=== PATIENT | female | born 1965 | race Caucasian/White ===

== ENCOUNTER 2016-11-18 23:39 | Emergency (ER) | payer MEDICARE, MEDICAID ==
[2016-11-19 00:16] LABS: ABSOLUTE BASOPHILS # (AUTO) 0.1 10^3/uL (0.0-0.2); ABSOLUTE EOSINOPHILS # (AUTO) 0.1 10^3/uL (0.0-0.6); ABSOLUTE LYMPHOCYTES (AUTO) 3.9 10^3/uL (0.5-4.7); ABSOLUTE MONOCYTES (AUTO) 0.4 10^3/uL (0.1-1.4); ABSOLUTE NEUT (AUTO) 6.6 10^3/uL (1.7-8.2); BASOPHILS % (AUTO) 0.6 % (0-2); EOSINOPHILS % (AUTO) 0.6 % (0-6); HEMATOCRIT 33.2 % (36.0-47.0); HEMOGLOBIN 11.5 g/dL (12.0-15.5); HGB HCT DIFFERENCE 1.3; LYMPHOCYTES % (AUTO) 35.1 % (13-45); MEAN CORPUSCULAR HEMOGLOBIN 28.8 pg (27.0-33.4); MEAN CORPUSCULAR HGB CONC 34.7 g/dL (32.0-36.0); MEAN CORPUSCULAR VOLUME 83 fl (80-97); MONOCYTES % (AUTO) 3.6 % (3-13); RED BLOOD COUNT 3.99 10^6/uL (3.72-5.28); RED CELL DISTRIBUTION WIDTH 13.1 % (11.5-14.0); SEGMENTED NEUTROPHILS % (AUTO) 60.1 % (42-78); WHITE BLOOD COUNT 11.1 10^3/uL (4.0-10.5)
[2016-11-19 00:33] LABS: ANION GAP 10 (5-19); BLOOD UREA NITROGEN 7 mg/dL (7-20); CALCIUM 10.1 mg/dL (8.4-10.2); CARBON DIOXIDE 24 mmol/L (22-30); CHLORIDE 105 mmol/L (98-107); CREATINE KINASE 56 U/L (30-135); CREATININE RESULT 0.74 mg/dL (0.52-1.25); GLUCOSE 100 mg/dL (75-110); POTASSIUM 4.2 mmol/L (3.6-5.0); SODIUM 139.3 mmol/L (137-145)
[2016-11-19] MEDS ORDERED: ALPRAZOLAM 0.5 MG TABLET PO ONE (00:42)
[2016-11-19 00:46] LABS: TROPONIN I < 0.012 ng/mL
--- NOTE | 2016-11-19 00:46 | ER Document Report ---
ED General - General Stated Complaint: CHEST PAIN Time seen by provider: 00:42 Mode of Arrival: Ambulatory Information source: Patient Notes: This is a 51-year-old female brought into the emergency room because of chest pain. Patient states she's had nausea and vomiting all day. She states she does have a history of anxiety and states that she thinks she may have some withdrawal as she ran out of her Xanax. She also states that she's been under a lot of stress and has felt run down. She also complains of a rash around her nose and by her waist. TRAVEL OUTSIDE OF THE [place] IN LAST 30 DAYS: No - HPI Onset: Just prior to arrival Onset/Duration: Gradual Quality of pain: Dull Severity: Mild Pain Level: 1 Associated symptoms: Nausea, Vomiting. denies: Chest pain, Fever, Shortness of breath Exacerbated by: Denies Relieved by: Denies Similar symptoms previously: Yes Recently seen / treated by doctor: No - Related Data Allergies/Adverse Reactions: No Known Allergies Allergy (Verified 11/19/16 02:14) Past Medical History - General Information source: Patient - Social History Smoking Status: Current Every Day Smoker Cigarette use (# per day): Yes - half pack per day Chew tobacco use (# tins/day): No Smoking Education Provided: No Frequency of alcohol use: None Drug Abuse: None Lives with: Family Family History: Reviewed & Not Pertinent Patient has suicidal ideation: No Patient has homicidal ideation: No - Past Medical History Cardiac Medical History: Reports: Hx Hypertension EENT Medical History: Reports: None Neurological Medical History: Reports: None Endocrine Medical History: Reports: None Renal/ Medical History: Reports: None Malignancy Medical History: Reports: None GI Medical History: Reports: None Musculoskeltal Medical History: Reports Hx Arthritis - osteoarthritis Psychiatric Medical History: Reports: Hx Bipolar Disorder, Hx Depression Past Surgical History: Reports: Hx Hysterectomy, Hx Thyroid Surgery - Immunizations Hx Diphtheria, Pertussis, Tetanus Vaccination: No Review of Systems - Review of Systems Constitutional: denies: Chills, Fever EENT: See HPI Cardiovascular: See HPI Respiratory: No symptoms reported Gastrointestinal: No symptoms reported Genitourinary: No symptoms reported Female Genitourinary: No symptoms reported Musculoskeletal: See HPI Skin: See HPI Hematologic/Lymphatic: No symptoms reported Neurological/Psychological: See HPI Physical Exam - Vital signs Vitals: Resp Pulse Ox 16 98 11/18/16 23:43 11/18/16 23:43 Notes: Physical exam: GENERAL: 51-year-old female, alert and oriented 3, no acute distress HEAD: Atraumatic, normocephalic. EYES: Pupils equal round and reactive to light, extraocular movements intact, sclera anicteric, conjunctiva are normal. ENT: TMs normal, nares patent but patient does have what appears to be a cold sore around the right nostril, oropharynx clear without exudates. Moist mucous membranes. NECK: Normal range of motion, supple without lymphadenopathy or JVD. LUNGS: Breath sounds clear to auscultation bilaterally and equal. No wheezes rales or rhonchi. HEART: Regular rate and rhythm without murmurs, rubs or gallops. ABDOMEN: Soft, normoactive bowel sounds. No tenderness to palpation. No guarding, no rebound. No masses appreciated. EXTREMITIES: Normal range of motion, no pitting or edema. No clubbing or cyanosis. NEUROLOGICAL: Cranial nerves II through XII grossly intact. Normal speech, normal gait. PSYCH: Normal mood, normal affect. SKIN: Warm, Dry, normal turgor, patient does have a fungal type rash around the left waist just below some panus Course - Vital Signs Vital signs: Temp Pulse Resp BP Pulse Ox 98.7 F 77 16 108/59 L 100 11/19/16 00:01 11/19/16 00:01 11/19/16 03:01 11/19/16 03:01 11/19/16 03:01 - Laboratory Result Diagrams: 11/19/16 00:05 11/19/16 00:05 Laboratory results interpreted by me: 11/19/16 00:05 WBC 11.1 H Hgb 11.5 L Hct 33.2 L - Diagnostic Test Radiology reviewed: Image reviewed, Reports reviewed - Chest x-ray shows no infiltrates or effusions - EKG Interpretation by Az Rate: Normal Rhythm: NSR - EKG shows normal sinus rhythm with a ventricular rate of 90, left bundle branch block which is old Discharge - Discharge Clinical Impression: chest wall pain, benzodiazepine withdrawal, cold sore, candidal rash Condition: Stable Disposition: HOME, SELF-CARE Additional Instructions: Recommendations: Continue current medicines. Restart your Ativan tomorrow. Take the Abreva for the cold sore rash on the nose: Up to 5 times daily Use the ketoconazole cream for the fungal rash. Return to the emergency room for any worsening chest pain or shortness of breath. Prescriptions: Docosanol [Abreva] 1 applic TP ASDIR PRN #2 cream.gm. PRN Reason: Ketoconazole 30 gm TP BID #1 cream.gm.
[2016-11-19] MEDS ORDERED: DIPHENHYDRAMINE HCL 50 MG/ML VIAL IV ONE (00:47)
[2016-11-19] MEDS ORDERED: NORMAL SALINE 1000 ML 1,000 ML IV PRN (00:47)
[2016-11-19] MEDS ORDERED: METOCLOPRAMIDE HCL INJ/PF 10 MG/2 ML SDV IV ONE (00:47)
[2016-11-19 03:19] VITALS: BP 108/59
--- NOTE | 2016-11-19 11:12 | EKG REPORT ---
SEVERITY:- ABNORMAL ECG - SINUS RHYTHM IVCD, CONSIDER ATYPICAL LBBB : Confirmed by: Charles Stokes 19-Nov-2016 11:11:48
== END 2016-11-19 03:25 | disposition home or self-care (01) ==
LOC: ER 23:39
DX: R07.89 Other chest pain (principal); F13.239 Sedative, hypnotic or anxiolytic dependence with withdrawal, unspecified; B00.1 Herpesviral vesicular dermatitis; B37.2 Candidiasis of skin and nail; R11.2 Nausea with vomiting, unspecified; F17.210 Nicotine dependence, cigarettes, uncomplicated; I10 Essential (primary) hypertension; Z90.710 Acquired absence of both cervix and uterus
CPT/HCPCS: 93005; 99285; 96361; 96374; 96375; 36415; 82553; 82550; 85025; 80048; 84484; 83880; 71010; 93010; A9270; J1200; J2765; J7030

== ENCOUNTER 2016-12-22 17:36 | Emergency (ER) | payer MEDICARE, MEDICAID ==
[2016-12-22] MEDS ORDERED: DIPH/PERTUSS(ACELL)/TETANUS VAC/PF 0.5 ML SYR (>=10YO) IM ONE (18:50)
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
--- NOTE | 2016-12-22 19:48 | RADIOLOGY REPORT (SQ) ---
EXAM DESCRIPTION: HIP LEFT AP/LATERAL COMPLETED DATE/TIME: 12/22/2016 7:38 pm REASON FOR STUDY: fall pain COMPARISON: None. NUMBER OF VIEWS: Two views. TECHNIQUE: AP pelvis and additional frog-leg view of the left hip. LIMITATIONS: None. FINDINGS: MINERALIZATION: Normal. LEFT HIP: Patient is status post left total hip replacement. The prosthesis appears well seated in t he acetabulum and proximal femoral medullary canal in the projections obtained. RIGHT HIP: No fracture or dislocation. No worrisome bone lesions. PUBIS AND ISCHIUM: No fracture. PELVIS: No fracture. SACRUM: No fracture or dislocation. No worrisome bone lesions. LOWER LUMBAR SPINE: No fracture or dislocation. No worrisome bone lesions. No significant disc disea se. SOFT TISSUES: No findings. OTHER: No other significant finding. IMPRESSION: Status post left total hip replacement. NO RADIOGRAPHIC EVIDENCE OF ACUTE INJURY. TECHNICAL DOCUMENTATION: JOB ID: [id number] [employer]- All Rights Reserved
[2016-12-22 20:38] VITALS: BP 128/60
== END 2016-12-22 20:37 | disposition home or self-care (01) ==
LOC: ER 17:36
DX: M25.552 Pain in left hip (principal); Z96.642 Presence of left artificial hip joint; T24.011A Burn of unspecified degree of right thigh, initial encounter; X77.8XXA Intentional self-harm by other hot objects, initial encounter; I10 Essential (primary) hypertension; F17.210 Nicotine dependence, cigarettes, uncomplicated; Z71.6 Tobacco abuse counseling; Z85.820 Personal history of malignant melanoma of skin
CPT/HCPCS: 90471; 90715; 99283

== ENCOUNTER 2017-02-11 09:00 | Emergency (ER) | payer MEDICARE, MEDICAID ==
[2017-02-11 09:07] VITALS: BP 144/67
--- NOTE | 2017-02-11 09:44 | ER Document Report ---
ED General - General Chief Complaint: Other Stated Complaint: POSSIBLE WITHDRAWAL/RASH ON HANDS Time Seen by Provider: 02/11/17 09:38 Information source: Patient Notes: 51-year-old female with past medical history as recorded he states that she ran out of her Xanax around 4 days ago and has yet been able to get a refill. Patient also states 1 week ago she developed a rash to bilateral problems. She denies any nausea, vomiting, fevers, or other constitutional symptoms. She states she did see her primary care physician around 3 days ago and was prescribed an antibiotic and cream and antibiotic pills but is yet to fill the prescription. Patient states she is here today because she forgot to tell her primary care physician about the Xanax. She states she feels a little "shaky" as she has not taken her medications in the last 3 days. TRAVEL OUTSIDE OF THE [place] IN LAST 30 DAYS: No - HPI Onset: Other - See above Quality of pain: No pain Severity: Mild Pain Level: 1 Associated symptoms: Other - See above Exacerbated by: Denies Relieved by: Denies Similar symptoms previously: Yes Recently seen / treated by doctor: Yes - Related Data Allergies/Adverse Reactions: No Known Allergies Allergy (Verified 02/11/17 09:03) Past Medical History - Social History Smoking Status: Unknown if Ever Smoked Cigarette use (# per day): No Chew tobacco use (# tins/day): No Smoking Education Provided: No Frequency of alcohol use: None Family History: Arthritis, CAD, CVA, Hyperlipidemia, Hypertension, Malignancy Patient has suicidal ideation: No Patient has homicidal ideation: No - Past Medical History Cardiac Medical History: Reports: Hx Hypertension Endocrine Medical History: Reports: Hx Graves' Disease Renal/ Medical History: Denies: Hx Peritoneal Dialysis Malignancy Medical History: Reports: Hx Skin Cancer - melanoma Musculoskeltal Medical History: Reports Hx Arthritis - osteoarthritis, Reports Hx Musculoskeletal Deformity, Reports Hx Musculoskeletal Trauma Psychiatric Medical History: Reports: Hx Anxiety, Hx Bipolar Disorder, Hx Depression, Hx Post Traumatic Stress Disorder Traumatic Medical History: Reports: Hx Fractures Past Surgical History: Reports: Hx Section - x1, Hx Hysterectomy, Hx Orthopedic Surgery - L hip replacement, Hx Thyroid Surgery - Immunizations Immunizations up to date: Yes Hx Diphtheria, Pertussis, Tetanus Vaccination: Yes - 12/22/16 Physical Exam - Vital signs Vitals: Temp Pulse Resp BP Pulse Ox 98.0 F 107 H 20 144/67 H 99 02/11/17 09:04 02/11/17 09:04 02/11/17 09:04 02/11/17 09:04 02/11/17 09:04 Notes: Reviewed vital signs and nursing note as charted by RN. CONSTITUTIONAL: Alert and oriented and responds appropriately to questions. Well -appearing; well-nourished HEAD: Normocephalic; atraumatic EYES: PERRL; Conjunctivae clear, sclerae non-icteric ENT: Normal nose; no rhinorrhea; moist mucous membranes; pharynx and mucosa without lesions NECK: Supple without meningismus; non-tender CARD: Regular rate and rhythm; no murmurs RESP: Normal chest excursion without splinting or tachypnea; breath sounds clear and equal bilaterally; no wheezes, no rhonchi, no rales SKIN: Has a cracking, dry, erythematous rash to the palms of both hands. There are no finger lesions. There are no other body lesions or foot lesions present. NEURO: Moves all extremities equally; Motor and sensory function intact PSYCH: The patient's mood and manner are appropriate. Grooming and personal hygiene are appropriate. Course - Re-evaluation Re-evalutation: 02/11/17 09:42 Given the history and physical examination with bilateral lesion to the palms only with no constitutional symptoms, with no allergy contacts according to patient, no new medicines, no new perfumes, foods, or medications, I am uncertain to the etiology of the patient's hand lesions. Patient has no constitutional symptoms. She had an antibiotic hand cream and antibiotic tablets pending at the pharmacy. Given the above description I do not believe that the patient requires any blood work at this time. I have explained strict return precautions. Given the patient's anxiety I will provide a short course of Xanax tablets and to the patient is able to follow up again with the primary doctor - Vital Signs Vital signs: Temp Pulse Resp BP Pulse Ox 98.0 F 107 H 20 144/67 H 99 02/11/17 09:04 02/11/17 09:04 02/11/17 09:04 02/11/17 09:04 02/11/17 09:04 Discharge - Discharge Clinical Impression: Rash, Anxiety Condition: Good Disposition: HOME, SELF-CARE Additional Instructions: Come back immediately with any increased rash, rash to the locations, fevers or vomiting, or any other acute problems. Please make sure that she follow-up with your primary care physician for reassessment, refill of his Xanax prescription, and please start the antibiotics that were prescribed to you. Prescriptions: Alprazolam [Xanax] 1 mg PO TID #9 tablet
== END 2017-02-11 09:50 | disposition home or self-care (01) ==
LOC: ER 09:00
DX: R21 Rash and other nonspecific skin eruption (principal); T49.0X6A Underdosing of local antifungal, anti-infective and anti-inflammatory drugs, initial encounter; T36.96XA Underdosing of unspecified systemic antibiotic, initial encounter; F41.9 Anxiety disorder, unspecified; T42.4X6A Underdosing of benzodiazepines, initial encounter; Z91.128 Patient's intentional underdosing of medication regimen for other reason; Z91.14 Patient's other noncompliance with medication regimen; I10 Essential (primary) hypertension; Z85.820 Personal history of malignant melanoma of skin
CPT/HCPCS: 99282

== ENCOUNTER 2017-03-18 09:38 | Day surgery (SDC) | payer MEDICARE, MEDICAID ==
[2017-03-14 12:50] LABS: HEMATOCRIT 38.1 % (36.0-47.0); HEMOGLOBIN 12.6 g/dL (12.0-15.5); HGB HCT DIFFERENCE -0.3; MEAN CORPUSCULAR HEMOGLOBIN 27.9 pg (27.0-33.4); MEAN CORPUSCULAR HGB CONC 33.1 g/dL (32.0-36.0); MEAN CORPUSCULAR VOLUME 84 fl (80-97); RED BLOOD COUNT 4.52 10^6/uL (3.72-5.28); RED CELL DISTRIBUTION WIDTH 12.7 % (11.5-14.0); WHITE BLOOD COUNT 14.9 10^3/uL (4.0-10.5)
[2017-03-14 13:15] LABS: ANION GAP 13 (5-19); BLOOD UREA NITROGEN 27 mg/dL (7-20); CALCIUM 10.4 mg/dL (8.4-10.2); CARBON DIOXIDE 23 mmol/L (22-30); CHLORIDE 94 mmol/L (98-107); CREATININE RESULT 1.43 mg/dL (0.52-1.25); GLUCOSE 98 mg/dL (75-110); POTASSIUM 4.8 mmol/L (3.6-5.0); SODIUM 129.6 mmol/L (137-145)
--- NOTE | 2017-03-14 18:42 | EKG REPORT ---
SEVERITY:- ABNORMAL ECG - SINUS RHYTHM LEFT BUNDLE BRANCH BLOCK : Confirmed by: Dieter Muniz MD 14-Mar-2017 18:41:31
[~2017-03-18 09:38] MED LIST: LACTATED RINGERS 1000 ML IV PRN; LIDOCAINE 0.5% INJ-PF (5 MG/ML) 50 ML SDV SUBCUT PRN
[2017-03-18] MEDS ORDERED: DIAZEPAM 5 MG TABLET ONE (10:56)
[2017-03-18] MEDS ORDERED: LIDOCAINE 2%/EPINEPHRINE INJ 1.7 ML CARTRIDGE ONE (11:36)
[2017-03-18] MEDS ORDERED: BUPIVACAINE HCL 0.5%/EPI 1:200000 INJ 1.8 ML CARTRIDGE ONE (11:36)
[2017-03-18] MEDS ORDERED: FENTANYL CITRATE INJ/PF 100 MCG/2 ML AMPUL ONE (12:15)
[2017-03-18] MEDS ORDERED: PROPOFOL INJ 200 MG/20 ML VIAL IV ONE (12:15)
[2017-03-18] MEDS ORDERED: MIDAZOLAM 2 MG/2 ML INJ ONE (12:15)
[2017-03-18] MEDS ORDERED: OXYCODONE-ACETAMINOPHEN 5-325 MG TABLET PO PRN ×3 (13:18→13:31)
[2017-03-18] MEDS ORDERED: PROMETHAZINE HCL INJ 25 MG/1 ML VIAL IV PRN ×2 (13:18)
[2017-03-18] MEDS ORDERED: MEPERIDINE HCL/PF INJ 25 MG/1 ML DISP.SYRIN IV PRN (13:18)
[2017-03-18] MEDS ORDERED: MORPHINE SULFATE 10 MG/ML INJ IV PRN (13:18)
[2017-03-18] MEDS ORDERED: DIPHENHYDRAMINE HCL 50 MG/ML VIAL IV PRN (13:18)
[2017-03-18] MEDS ORDERED: FENTANYL CITRATE INJ/PF 100 MCG/2 ML AMPUL IV PRN ×3 (13:18)
[2017-03-18] MEDS: FENTANYL CITRATE INJ/PF 100 MCG/2 ML AMPUL ONE ×2 (13:41→13:50)
[2017-03-18] MEDS ORDERED: SUCCINYLCHOLINE CHLORIDE INJ 200 MG/10 ML VIAL ONE (14:31)
--- NOTE | 2017-03-18 14:55 | Operative Report ---
Operative Report DATE OF SURGERY: 03/18/17 PREOPERATIVE DIAGNOSIS: Dental Caries POSTOPERATIVE DIAGNOSIS: Same OPERATION: Surgical removal of teeth #'s 3,5-14 and alveoloplasty UR and UL quadrants SURGEON: JANINE SOW ANESTHESIA: GA TISSUE REMOVED OR ALTERED: teeth which were discarded COMPLICATIONS: none ESTIMATED BLOOD LOSS: 25cc INTRAOPERATIVE FINDINGS: Nonrestorable teeth PROCEDURE: The patient was brought into operating room #3 and placed on the operating room table in supine position. General anesthesia was induced via a peripheral IV and continued utilizing nasoendotracheal intubation through the left nares. The patient was prepped and draped in the usual fashion for an intraoral procedure. A total of four carpules of 2% Lidocaine with 1:100k epi and two carpules of 0.5 % Marcaine with 1:200k epi were delivered to the planned surgical sites via infiltration and nerve block. The oral cavity and oropharynx were suctioned and a moistened oropharyngeal throat pack was placed. Full thickness mucoperiosteal flaps were developed via envelope incisions. Ostecotomy was completed as needed. Teeth #'s 3 and 14 were sectioned. Teeth were delivered using elevators and forceps. Alveloplasties were completed using ronguers and bone files. The sockets were curretted free of debris and irrigated with NS. There was no sinus communiction noted, the nerves were not seen and the mandible was intact postoperatively. A bite block was used throughout the procedure. The flaps were reapproximated and sutured with 4/0 chromic gut suture. The oral cavity was irrigated and suctioned, the throat pack removed and the oropharynx suctioned. Gauze packs were placed bilaterally to aid in continued hemastasis. The patient was awakened from general anesthesia, extubated in the operating room and taken to recovery room in spontaneous breathing fashion.
[2017-03-18 16:11] VITALS: BP 99/70
== END 2017-03-18 15:25 | disposition home or self-care (01) ==
LOC: OROUT 09:38
PROVIDERS: ATTEND Dentist Oral and Maxillofacial Surgery
PROC: 0NQSXZZ (ICD-10-PCS; 2017-03-18)
PROC: 0NQRXZZ Repair Maxilla, External Approach (ICD-10-PCS; 2017-03-18)
PROC: 0CDWXZ1 Extraction of Upper Tooth, Multiple, External Approach (ICD-10-PCS; principal; 2017-03-18 12:00)
DX: K02.9 Dental caries, unspecified (principal); F17.210 Nicotine dependence, cigarettes, uncomplicated; I10 Essential (primary) hypertension; M19.90 Unspecified osteoarthritis, unspecified site; E07.9 Disorder of thyroid, unspecified; Z96.642 Presence of left artificial hip joint; Z79.899 Other long term (current) drug therapy; Z85.828 Personal history of other malignant neoplasm of skin
CPT/HCPCS: 41899; 41874 ×2; 93005; 36415 ×2; 84132; 85027; 80048; 93010; J2250; J3490; A9270 ×2; J3010; J0330; J2704; 170

== ENCOUNTER 2017-06-14 15:17 | Emergency (ER) | payer MEDICARE, MEDICAID ==
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
[2017-06-14] MEDS ORDERED: KETOROLAC TROMETHAMINE 60 MG/2 ML SDV IM ONE (18:28)
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
[2017-06-14 19:57] VITALS: BP 119/72
[2017-06-14] MEDS ORDERED: HYDROCODONE/ACETAMINOPHEN 5-325 MG 6 TAB/DSPK PO PRN (20:03)
== END 2017-06-14 20:25 | disposition home or self-care (01) ==
LOC: ER 15:17
DX: R07.81 Pleurodynia (principal); R51 Headache; V87.7XXD Person injured in collision between other specified motor vehicles (traffic), subsequent encounter; F17.200 Nicotine dependence, unspecified, uncomplicated; I10 Essential (primary) hypertension; Z90.710 Acquired absence of both cervix and uterus; Z96.642 Presence of left artificial hip joint
CPT/HCPCS: 99284; 96372; 71111; 70450; J1885; A9270

== ENCOUNTER 2017-06-20 17:44 | Emergency (ER) | payer MEDICARE, MEDICAID ==
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
[2017-06-20 20:28] LABS: ABSOLUTE BASOPHILS # (AUTO) 0.1 10^3/uL (0.0-0.2); ABSOLUTE LYMPHOCYTES (AUTO) 2.8 10^3/uL (0.5-4.7); ABSOLUTE MONOCYTES (AUTO) 0.3 10^3/uL (0.1-1.4); ABSOLUTE NEUT (AUTO) 7.2 10^3/uL (1.7-8.2); BASOPHILS % (AUTO) 1.1 % (0-2); EOSINOPHILS % (AUTO) 0.2 % (0-6); HEMATOCRIT 31.8 % (36.0-47.0); HEMOGLOBIN 10.9 g/dL (12.0-15.5); HGB HCT DIFFERENCE 0.9; LYMPHOCYTES % (AUTO) 27.2 % (13-45); MEAN CORPUSCULAR HGB CONC 34.3 g/dL (32.0-36.0); MEAN CORPUSCULAR VOLUME 85 fl (80-97); MONOCYTES % (AUTO) 2.9 % (3-13); RED BLOOD COUNT 3.76 10^6/uL (3.72-5.28); RED CELL DISTRIBUTION WIDTH 14.2 % (11.5-14.0); SEGMENTED NEUTROPHILS % (AUTO) 68.6 % (42-78); WHITE BLOOD COUNT 10.4 10^3/uL (4.0-10.5)
[2017-06-20 20:47] LABS: ALANINE AMINOTRANSFERASE 32 U/L (9-52); ALBUMIN 3.9 g/dL (3.5-5.0); ALKALINE PHOSPHATASE 97 U/L (38-126); ANION GAP 9 (5-19); ASPARTATE AMINO TRANSFERASE 20 U/L (14-36); BILIRUBIN,DIRECT 0.4 mg/dL (0.0-0.4); BILIRUBIN,TOTAL 0.5 mg/dL (0.2-1.3); BLOOD UREA NITROGEN 13 mg/dL (7-20); CALCIUM 9.5 mg/dL (8.4-10.2); CARBON DIOXIDE 31 mmol/L (22-30); CHLORIDE 97 mmol/L (98-107); CREATININE RESULT 0.96 mg/dL (0.52-1.25); GLUCOSE 95 mg/dL (75-110); SODIUM 137.2 mmol/L (137-145); TOTAL PROTEIN 6.1 g/dL (6.3-8.2)
[2017-06-20 20:48] LABS: ALCOHOL < 10 mg/dL (NONE DETECTED)
[2017-06-20] MEDS ORDERED: POTASSIUM CHLORIDE 20 MEQ/15 ML UDCUP PO ONE (20:52)
[2017-06-20 20:54] LABS: APPEARANCE,URINE CLEAR; BILIRUBIN,URINE NEGATIVE (NEGATIVE); GLUCOSE, URINE NEGATIVE (NEGATIVE); KETONES,URINE NEGATIVE (NEGATIVE); LEUKOCYTE ESTERASE,URINE NEGATIVE (NEGATIVE); NITRITE,URINE NEGATIVE (NEGATIVE); PROTEIN,URINE NEGATIVE (NEGATIVE); URINE SPECIFIC GRAVITY 1.005; UROBILINOGEN,URINE NEGATIVE mg/dL (<2.0)
[2017-06-20 21:08] LABS: URINE BARBITURATES SCREEN NEGATIVE; URINE METHADONE SCREEN NEGATIVE; URINE OPIATES LOW NEGATIVE; URINE PHENCYCLIDINE SCREEN NEGATIVE
[2017-06-20 22:22] VITALS: BP 122/69
--- NOTE | 2017-06-21 14:04 | EKG REPORT ---
SEVERITY:- ABNORMAL ECG - SINUSL RHYTHM LEFT BUNDLE BRANCH BLOCK : Confirmed by: Jen Marrero MD 21-Jun-2017 14:03:02
== END 2017-06-20 22:22 | disposition home or self-care (01) ==
LOC: ER 17:44
DX: R56.9 Unspecified convulsions (principal); R41.82 Altered mental status, unspecified; G47.00 Insomnia, unspecified; F17.200 Nicotine dependence, unspecified, uncomplicated; I10 Essential (primary) hypertension; Z90.710 Acquired absence of both cervix and uterus; Z96.642 Presence of left artificial hip joint
CPT/HCPCS: 93005; 99285; 36415; 80307 ×2; 85025; 80053; 81001; 93010; A9270

== ENCOUNTER 2017-06-24 18:44 | Emergency (ER) | payer MEDICARE, MEDICAID ==
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
[2017-06-24 19:38] LABS: ABSOLUTE BASOPHILS # (AUTO) 0.2 10^3/uL (0.0-0.2); ABSOLUTE EOSINOPHILS # (AUTO) 0.1 10^3/uL (0.0-0.6); ABSOLUTE LYMPHOCYTES (AUTO) 4.7 10^3/uL (0.5-4.7); ABSOLUTE MONOCYTES (AUTO) 0.6 10^3/uL (0.1-1.4); ABSOLUTE NEUT (AUTO) 13.8 10^3/uL (1.7-8.2); BASOPHILS % (AUTO) 1.2 % (0-2); EOSINOPHILS % (AUTO) 0.6 % (0-6); HEMATOCRIT 35.3 % (36.0-47.0); HEMOGLOBIN 12.2 g/dL (12.0-15.5); HGB HCT DIFFERENCE 1.3; LYMPHOCYTES % (AUTO) 24.4 % (13-45); MEAN CORPUSCULAR HGB CONC 34.5 g/dL (32.0-36.0); MEAN CORPUSCULAR VOLUME 84 fl (80-97); MONOCYTES % (AUTO) 3.1 % (3-13); RED CELL DISTRIBUTION WIDTH 14.1 % (11.5-14.0); SEGMENTED NEUTROPHILS % (AUTO) 70.7 % (42-78); WHITE BLOOD COUNT 19.5 10^3/uL (4.0-10.5)
[2017-06-24 19:44] LABS: ALANINE AMINOTRANSFERASE 28 U/L (9-52); ALBUMIN 4.5 g/dL (3.5-5.0); ALKALINE PHOSPHATASE 131 U/L (38-126); ANION GAP 15 (5-19); ASPARTATE AMINO TRANSFERASE 17 U/L (14-36); BILIRUBIN,DIRECT 0.5 mg/dL (0.0-0.4); BILIRUBIN,TOTAL 0.6 mg/dL (0.2-1.3); BLOOD UREA NITROGEN 12 mg/dL (7-20); CALCIUM 9.9 mg/dL (8.4-10.2); CARBON DIOXIDE 28 mmol/L (22-30); CHLORIDE 90 mmol/L (98-107); CREATININE RESULT 1.01 mg/dL (0.52-1.25); GLUCOSE 102 mg/dL (75-110); SODIUM 132.6 mmol/L (137-145); TOTAL PROTEIN 7.2 g/dL (6.3-8.2)
[2017-06-24 19:56] LABS: ALCOHOL < 10 mg/dL (NONE DETECTED)
[2017-06-24 19:58] LABS: POTASSIUM 3.1 mmol/L (3.6-5.0)
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
[2017-06-24] MEDS ORDERED: LEVETIRACETAM 500 MG TABLET PO ONE (20:20)
[2017-06-24 20:22] LABS: APPEARANCE,URINE CLEAR; BILIRUBIN,URINE NEGATIVE (NEGATIVE); GLUCOSE, URINE NEGATIVE (NEGATIVE); KETONES,URINE NEGATIVE (NEGATIVE); LEUKOCYTE ESTERASE,URINE NEGATIVE (NEGATIVE); NITRITE,URINE NEGATIVE (NEGATIVE); PROTEIN,URINE NEGATIVE (NEGATIVE); URINE SPECIFIC GRAVITY 1.005; UROBILINOGEN,URINE NEGATIVE mg/dL (<2.0)
[2017-06-24] MEDS ORDERED: POTASSIUM CHLORIDE 10 MEQ TABLET.SA PO ONE (20:23)
[2017-06-24] MEDS ORDERED: MAGNESIUM OXIDE 400 MG TABLET PO ONE (20:24)
[2017-06-24] MEDS ORDERED: NORMAL SALINE 1000 ML 1,000 ML IV ONE (20:26)
[2017-06-24 20:36] LABS: URINE BARBITURATES SCREEN NEGATIVE; URINE METHADONE SCREEN NEGATIVE; URINE OPIATES LOW NEGATIVE; URINE PHENCYCLIDINE SCREEN NEGATIVE
[2017-06-25 00:04] VITALS: BP 141/82
== END 2017-06-24 20:46 | disposition home or self-care (01) ==
LOC: ER 18:44
DX: R56.9 Unspecified convulsions (principal); E86.0 Dehydration; F17.200 Nicotine dependence, unspecified, uncomplicated; Z90.710 Acquired absence of both cervix and uterus
CPT/HCPCS: 99284; 36415; 80307 ×2; 85025; 80053; 81001; A9270 ×3

== ENCOUNTER 2017-06-26 08:37 | Emergency (ER) | payer MEDICARE, MEDICAID ==
[2017-06-26 09:06] LABS: ABSOLUTE BASOPHILS # (AUTO) 0.1 10^3/uL (0.0-0.2); ABSOLUTE EOSINOPHILS # (AUTO) 0.2 10^3/uL (0.0-0.6); ABSOLUTE LYMPHOCYTES (AUTO) 3.8 10^3/uL (0.5-4.7); ABSOLUTE MONOCYTES (AUTO) 0.8 10^3/uL (0.1-1.4); ABSOLUTE NEUT (AUTO) 11.4 10^3/uL (1.7-8.2); BASOPHILS % (AUTO) 0.4 % (0-2); EOSINOPHILS % (AUTO) 1.1 % (0-6); HEMATOCRIT 36.5 % (36.0-47.0); HEMOGLOBIN 12.9 g/dL (12.0-15.5); HGB HCT DIFFERENCE 2.2; LYMPHOCYTES % (AUTO) 23.3 % (13-45); MEAN CORPUSCULAR HEMOGLOBIN 29.3 pg (27.0-33.4); MEAN CORPUSCULAR HGB CONC 35.4 g/dL (32.0-36.0); MEAN CORPUSCULAR VOLUME 83 fl (80-97); MONOCYTES % (AUTO) 4.7 % (3-13); RED BLOOD COUNT 4.41 10^6/uL (3.72-5.28); RED CELL DISTRIBUTION WIDTH 13.9 % (11.5-14.0); SEGMENTED NEUTROPHILS % (AUTO) 70.5 % (42-78); WHITE BLOOD COUNT 16.2 10^3/uL (4.0-10.5)
[2017-06-26 09:30] LABS: ALBUMIN 4.8 g/dL (3.5-5.0); ANION GAP 15 (5-19); BILIRUBIN,DIRECT 0.5 mg/dL (0.0-0.4); BILIRUBIN,TOTAL 0.6 mg/dL (0.2-1.3); BLOOD UREA NITROGEN 10 mg/dL (7-20); CARBON DIOXIDE 31 mmol/L (22-30); CHLORIDE 88 mmol/L (98-107); GLUCOSE 111 mg/dL (75-110); NEONATAL BILIRUBIN RESULT 0.1 mg/dL (0.1-1.1); SODIUM 133.8 mmol/L (137-145); TOTAL PROTEIN 7.9 g/dL (6.3-8.2)
[2017-06-26 09:36] LABS: APPEARANCE,URINE CLEAR; BILIRUBIN,URINE NEGATIVE (NEGATIVE); GLUCOSE, URINE NEGATIVE (NEGATIVE); KETONES,URINE NEGATIVE (NEGATIVE); LEUKOCYTE ESTERASE,URINE NEGATIVE (NEGATIVE); NITRITE,URINE NEGATIVE (NEGATIVE); PROTEIN,URINE NEGATIVE (NEGATIVE); URINE SPECIFIC GRAVITY 1.002; UROBILINOGEN,URINE NEGATIVE mg/dL (<2.0)
[2017-06-26 09:41] LABS: ALANINE AMINOTRANSFERASE 33 U/L (9-52); ALKALINE PHOSPHATASE 156 U/L (38-126); ASPARTATE AMINO TRANSFERASE 14 U/L (14-36); CALCIUM 10.3 mg/dL (8.4-10.2)
[2017-06-26 09:44] LABS: ALCOHOL < 10 mg/dL (NONE DETECTED)
[2017-06-26 09:46] LABS: POTASSIUM 2.9 mmol/L (3.6-5.0)
[2017-06-26] MEDS ORDERED: POTASSIUM CHLORIDE 10 MEQ TABLET.SA PO ONE (09:52)
[2017-06-26 09:57] LABS: URINE BARBITURATES SCREEN NEGATIVE; URINE METHADONE SCREEN NEGATIVE; URINE OPIATES LOW NEGATIVE; URINE PHENCYCLIDINE SCREEN NEGATIVE
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
[2017-06-26 11:06] VITALS: BP 120/76
--- NOTE | 2017-06-26 13:33 | EKG REPORT ---
SEVERITY:- ABNORMAL ECG - SINUS RHYTHM PROBABLE LEFT ATRIAL ABNORMALITY LEFT BUNDLE BRANCH BLOCK : Confirmed by: Dieter Muniz MD 26-Jun-2017 13:32:05
== END 2017-06-26 10:45 | disposition home or self-care (01) ==
LOC: ER 08:37
DX: Z76.0 Encounter for issue of repeat prescription (principal); M54.2 Cervicalgia; M54.9 Dorsalgia, unspecified; G89.29 Other chronic pain; Z79.899 Other long term (current) drug therapy; F17.200 Nicotine dependence, unspecified, uncomplicated
CPT/HCPCS: 93005; 99284; 36415; 80307 ×4; 85025; 80053; 81001; 93010; A9270

== ENCOUNTER 2017-06-27 01:21 | Emergency (ER) | payer MEDICARE, MEDICAID ==
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
[2017-06-27 02:24] LABS: ABSOLUTE EOSINOPHILS # (AUTO) 0.2 10^3/uL (0.0-0.6); ABSOLUTE LYMPHOCYTES (AUTO) 4.5 10^3/uL (0.5-4.7); ABSOLUTE MONOCYTES (AUTO) 0.7 10^3/uL (0.1-1.4); ABSOLUTE NEUT (AUTO) 11.4 10^3/uL (1.7-8.2); BASOPHILS % (AUTO) 0.3 % (0-2); HEMATOCRIT 31.9 % (36.0-47.0); HEMOGLOBIN 11.5 g/dL (12.0-15.5); HGB HCT DIFFERENCE 2.6; LYMPHOCYTES % (AUTO) 26.6 % (13-45); MEAN CORPUSCULAR HEMOGLOBIN 29.3 pg (27.0-33.4); MEAN CORPUSCULAR VOLUME 82 fl (80-97); MONOCYTES % (AUTO) 4.2 % (3-13); RED BLOOD COUNT 3.91 10^6/uL (3.72-5.28); RED CELL DISTRIBUTION WIDTH 13.8 % (11.5-14.0); SEGMENTED NEUTROPHILS % (AUTO) 67.9 % (42-78); WHITE BLOOD COUNT 16.8 10^3/uL (4.0-10.5)
[2017-06-27 02:43] LABS: ALANINE AMINOTRANSFERASE 27 U/L (9-52); ALKALINE PHOSPHATASE 149 U/L (38-126); ANION GAP 14 (5-19); ASPARTATE AMINO TRANSFERASE 14 U/L (14-36); BILIRUBIN,DIRECT 0.3 mg/dL (0.0-0.4); BILIRUBIN,TOTAL 0.7 mg/dL (0.2-1.3); BLOOD UREA NITROGEN 10 mg/dL (7-20); CALCIUM 9.4 mg/dL (8.4-10.2); CARBON DIOXIDE 24 mmol/L (22-30); CHLORIDE 85 mmol/L (98-107); CREATININE RESULT 0.87 mg/dL (0.52-1.25); GLUCOSE 94 mg/dL (75-110); SODIUM 123.1 mmol/L (137-145); TOTAL PROTEIN 6.3 g/dL (6.3-8.2)
[2017-06-27 02:47] LABS: ALCOHOL < 10 mg/dL (NONE DETECTED)
[2017-06-27 02:48] LABS: POTASSIUM 2.7 mmol/L (3.6-5.0)
[2017-06-27] MEDS ORDERED: POTASSI CL 20 MEQ/50 ML RIDER 20 MEQ/50 ML RTUPB IV ONE ×2 (02:48→06:43)
[2017-06-27] MEDS ORDERED: POTASSIUM CHLORIDE 10 MEQ TABLET.SA PO ONE (02:48)
[2017-06-27] MEDS ORDERED: FENTANYL CITRATE INJ/PF 100 MCG/2 ML AMPUL IV ONE (02:50)
[2017-06-27] MEDS ORDERED: NORMAL SALINE 500 ML IV ONE ×2 (05:19→10:08)
[2017-06-27] MEDS: MAGNESIUM SULFATE/D5W 1 GM/100 ML RTUPB IV SCH ×2 (05:47→07:15)
[2017-06-27 06:00] LABS: APPEARANCE,URINE CLEAR; BILIRUBIN,URINE NEGATIVE (NEGATIVE); GLUCOSE, URINE NEGATIVE (NEGATIVE); KETONES,URINE NEGATIVE (NEGATIVE); LEUKOCYTE ESTERASE,URINE NEGATIVE (NEGATIVE); NITRITE,URINE NEGATIVE (NEGATIVE); PROTEIN,URINE NEGATIVE (NEGATIVE); URINE SPECIFIC GRAVITY 1.003; UROBILINOGEN,URINE NEGATIVE mg/dL (<2.0)
[2017-06-27 06:07] LABS: URINE BARBITURATES SCREEN NEGATIVE; URINE METHADONE SCREEN NEGATIVE; URINE OPIATES LOW NEGATIVE; URINE PHENCYCLIDINE SCREEN NEGATIVE
[2017-06-27] MEDS ORDERED: TIZANIDINE HCL 4 MG TABLET PO PRN (06:07)
--- NOTE | 2017-06-27 06:37 | EKG REPORT ---
SEVERITY:- ABNORMAL ECG - SINUS RHYTHM IVCD, CONSIDER ATYPICAL LBBB : Confirmed by: Dieter Muniz MD 27-Jun-2017 06:36:51
[2017-06-27 07:29] LABS: ANION GAP 10 (5-19); BLOOD UREA NITROGEN 9 mg/dL (7-20); CARBON DIOXIDE 28 mmol/L (22-30); CHLORIDE 88 mmol/L (98-107); CREATININE RESULT 0.83 mg/dL (0.52-1.25); GLUCOSE 108 mg/dL (75-110); POTASSIUM 3.1 mmol/L (3.6-5.0); SODIUM 125.9 mmol/L (137-145)
[2017-06-27] MEDS: OXYCODONE-ACETAMINOPHEN 5-325 MG TABLET PO PRN ×3 (08:18→18:02)
[2017-06-27] MEDS: PROMETHAZINE HCL 25 MG TABLET PO PRN ×2 (08:18→18:03)
[2017-06-27] MEDS ORDERED: POTASSIUM CHLORIDE 20 MEQ/50 ML RTU IV ONE (09:00)
[2017-06-27] MEDS: LEVETIRACETAM 500 MG TABLET PO SCH ×2 (09:04→18:02)
[2017-06-27] MEDS: ALPRAZOLAM 0.5 MG TABLET PO PRN ×3 (09:05→18:02)
[2017-06-27] MEDS ORDERED: FAMOTIDINE 20 MG TABLET PO SCH (10:00)
[2017-06-27] MEDS ORDERED: FUROSEMIDE 40 MG TABLET PO SCH (10:00)
[2017-06-27] MEDS ORDERED: LEVOTHYROXINE SODIUM 0.075 MG TABLET PO SCH (10:00)
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
[2017-06-27 17:11] LABS: ANION GAP 11 (5-19); BLOOD UREA NITROGEN 8 mg/dL (7-20); CALCIUM 8.8 mg/dL (8.4-10.2); CARBON DIOXIDE 27 mmol/L (22-30); CHLORIDE 94 mmol/L (98-107); CREATININE RESULT 0.91 mg/dL (0.52-1.25); GLUCOSE 112 mg/dL (75-110); POTASSIUM 3.5 mmol/L (3.6-5.0); SODIUM 131.6 mmol/L (137-145)
[2017-06-27] MEDS ORDERED: AMITRIPTYLINE HCL 50 MG TABLET PO SCH (18:00)
[2017-06-27] MEDS ORDERED: BUSPIRONE HCL 10 MG TABLET PO SCH (18:00)
--- NOTE | 2017-06-27 18:04 | ER Document Report ---
Doctor's Note Notes: 06/27/17 18:01 Patient is stable. Magnesium, potassium and sodium have been repleted. Mark has been seen and cleared by psych. She will be discharged home with a RX for potassium and instructed to follow up with clinic as indicated in her discharge paperwork.
[2017-06-27 19:05] VITALS: BP 115/78
== END 2017-06-27 19:06 | disposition home or self-care (01) ==
LOC: ER 01:21
DX: E87.6 Hypokalemia (principal); E83.42 Hypomagnesemia; F19.10 Other psychoactive substance abuse, uncomplicated; R10.84 Generalized abdominal pain; R11.0 Nausea; G89.29 Other chronic pain; I10 Essential (primary) hypertension; I44.7 Left bundle-branch block, unspecified; F41.9 Anxiety disorder, unspecified; Z85.820 Personal history of malignant melanoma of skin; Z79.899 Other long term (current) drug therapy
CPT/HCPCS: 93005; 99285; 96361; 51701; 96375; 96365; 96366; 96367; 36415; 84439; 80307 ×4; 83735; 84443; 85025; 80048; 80053; 81001; 93010; A9270 ×10; J3010; J3475; J3480; J7040; J3490

== ENCOUNTER 2017-06-29 10:34 | Emergency (ER) | payer MEDICARE, MEDICAID ==
--- NOTE | 2017-06-29 11:01 | ER Document Report ---
ED General - General Stated Complaint: ANXIETY Time Seen by Provider: 06/29/17 10:42 Notes: Patient is here because she experienced a couple of hours of chest pains this morning. She feels it is because she is going through withdrawal from Xanax and Percocets which she has been out of for about 2 weeks. She says the chest hurt in the front of her chest and her left arm went numb. It lasted about 2 hours, but is now back to normal. Patient says that she has not had a good sleep for 2 weeks. Think she is having a heart attack, but may be panic attack. She has been seen here previously for mental health evaluations as well as other evaluations. She reportedly left last week from the emergency department AGAINST MEDICAL ADVICE. Patient says she has a cough is producing green sputum. Denies any actual shortness of breath at this time. Has COPD and continues to smoke a pack of cigarettes daily. Denies any fevers. PMH: Hip replacement, hypertension, GERD, hypothyroid, fibromyalgia, anxiety, depression, and seizures. This is this patient's ninth visit to this emergency department in this calendar year of 2017. She was just here 3 days ago for a psychiatric evaluation. TRAVEL OUTSIDE OF THE [place] IN LAST 30 DAYS: No - Related Data Allergies/Adverse Reactions: No Known Allergies Allergy (Verified 06/27/17 01:29) Home Medications: Current Home Medications Duloxetine HCl 60 mg PO BID 06/29/17 [History] Ibuprofen 800 mg PO Q6HP PRN 06/29/17 [History] Potassium Chloride 8 meq PO BID 06/29/17 [History] Past Medical History - Social History Smoking Status: Current Every Day Smoker Cigarette use (# per day): Yes Family History: Arthritis, CAD, CVA, Hyperlipidemia, Hypertension, Malignancy - Past Medical History Cardiac Medical History: Reports: Hx Hypertension Denies: Hx Coronary Artery Disease, Hx Heart Attack Pulmonary Medical History: Reports: Hx COPD Neurological Medical History: Reports: Hx Seizures Endocrine Medical History: Reports: Hx Graves' Disease, Hx Hypothyroidism Malignancy Medical History: Reports: Hx Skin Cancer - melanoma a couple of years ago GI Medical History: Reports: Hx Gastroesophageal Reflux Disease Musculoskeltal Medical History: Denies Hx Arthritis - RHEUMATOID, Reports Hx Fibromyalgia, Reports Hx Musculoskeletal Deformity, Reports Hx Musculoskeletal Trauma Psychiatric Medical History: Reports: Hx Anxiety, Hx Bipolar Disorder, Hx Depression, Hx Post Traumatic Stress Disorder Traumatic Medical History: Reports: Hx Fractures Past Surgical History: Reports: Hx Section - x1, Hx Hysterectomy, Hx Orthopedic Surgery - L hip replacement, Hx Thyroid Surgery - Immunizations Immunizations up to date: Yes Hx Diphtheria, Pertussis, Tetanus Vaccination: Yes Review of Systems - Review of Systems Notes: REVIEW OF SYSTEMS: CONSTITUTIONAL : Denies fever. EENT: Denies eye, ear, nose or mouth or throat pain or other symptoms. CARDIOVASCULAR: See HPI. RESPIRATORY: Has a cough producing green phlegm. Does not feel short of breath , however. GASTROINTESTINAL: Denies abdominal pain or nausea, vomiting, or diarrhea. GENITOURINARY: Denies difficulty or painful urinating, urinary frequency, blood in urine. MUSCULOSKELETAL: Denies back or neck pain. Denies joint pain or swelling. No leg pain or swelling such as with blood clots. SKIN: Denies rash or skin lesions. NEUROLOGICAL: Denies LOC or altered mental status. Denies headache. Denies sensory loss or motor deficits. ALL OTHER SYSTEMS REVIEWED AND NEGATIVE. Physical Exam - Vital signs Vitals: Temp Pulse Resp BP Pulse Ox 97.9 F 97 16 143/61 H 100 06/29/17 11:04 06/29/17 11:04 06/29/17 11:04 06/29/17 11:04 06/29/17 11:04 Interpretation: Normal - Notes Notes: PHYSICAL EXAMINATION: GENERAL: Well-appearing, in no acute distress. Vital signs all essentially normal. HEAD: Atraumatic, normocephalic. EYES: Pupils equal round and reactive to light, extraocular movements intact. ENT: oropharynx clear without exudates. Moist mucous membranes. NECK: Normal range of motion, supple. LUNGS: Breath sounds clear and equal bilaterally. HEART: Regular rate and rhythm without murmurs. ABDOMEN: Soft, nontender. No guarding or rebound. BACK: No tenderness throughout entire back. EXTREMITIES: Normal range of motion without pain. Negative Homans bilaterally. NEUROLOGICAL: Normal speech, normal gait. Normal sensory, motor, and reflex exams. Awake, alert, and oriented x3. Cranial nerves normal. PSYCH: Normal mood, normal affect. Anxious and may be somewhat depressed. SKIN: Warm, dry, no rashes. Course - Re-evaluation Re-evalutation: 06/29/17 12:52 Patient's entire workup is essentially normal. No changes in her EKG from one done a couple of days ago. No significant positive findings. A few minor electrolyte variations are noted, but already being addressed is the patient's low potassium. Patient wants something for her nerves. She has 2 empty bottles of Vistaril. I will write her a prescription for a refill of 15 Vistaril. - Vital Signs Vital signs: Temp Pulse Resp BP Pulse Ox 97.9 F 97 16 143/61 H 100 06/29/17 11:04 06/29/17 11:04 06/29/17 11:04 06/29/17 11:04 06/29/17 11:04 - Laboratory Result Diagrams: 06/29/17 10:49 06/29/17 10:49 Laboratory results interpreted by me: 06/29/17 06/29/17 10:49 10:49 WBC 11.2 H Hgb 10.9 L Hct 32.0 L Sodium 131.0 L Potassium 3.3 L Chloride 91 L Alkaline Phosphatase 140 H Acetaminophen < 10 L Lab results noted. Potassium of 3.3 noted. Patient has a bottle of potassium pills. WBC of 11,200 noted. - Diagnostic Test Radiology results interpreted by me: 06/29/17 12:52 Chest x-ray is normal. - EKG Interpretation by Ct EKG shows normal: Sinus rhythm Rate: Normal - Of 86 Rhythm: NSR Additional EKG results interpreted by me: 06/29/17 12:05 EKG is unchanged from previous EKG on 06/27/2017. Patient has an intraventricular conduction defect, possibly a left bundle branch block. She does not have any acute changes or STEMI. Discharge - Discharge Clinical Impression: Chest pain, non-cardiac, Anxiety, Hypokalemia, Medication refill Condition: Stable Disposition: HOME, SELF-CARE Additional Instructions: CHEST PAIN OF UNCLEAR CAUSE: The exact cause of your chest pain isn't clear. Fortunately, there is no evidence of a dangerous medical condition. Further testing may be required to find the source of the pain. Most often, we find that this pain is coming from the chest wall -- the muscles or rib joints in the chest. But chest pain can come from the lung and lung lining, the esophagus, the heart valves or heart lining, and even the stomach or gallbladder. Rest. Eat lightly until the pain is gone. We may prescribe medicine for pain and inflammation. You should call the physician immediately if the pain radiates to the shoulder, jaw or arms; if you start to run a fever or develop a cough; or if you develop shortness of breath, or other new or alarming symptoms. NORMAL EXAM AND WORKUP: At this time, your examination and workup show no significant abnormality. No significant abnormal physical findings were noted. All laboratory, EKG, and imaging (x-ray, CT scans, ultrasound) studies that were ordered show no significant abnormality. Although your examination and all studies that were ordered showed no significant abnormal finding, there are no examinations and no studies that are 100% accurate. There is always the possibility that some abnormality could exist and not be detected with physical examination or within the limits and capabilities of laboratory and other studies. You should return or follow up as you were instructed on your visit today for further evaluation if your symptoms do not resolve. Anxiety The physician feels that some of your health problems are being caused by anxiety. Anxiety affects your health in many ways. Anxiety alone can cause palpitations, sweats, chest pains, abdominal pains, shortness of breath, and headaches. It contributes to ulcer disease, high blood pressure, irritable bowel syndrome, and has been shown to cause flare-ups of many other diseases. Anxiety is not a simple disorder to treat. If the anxiety is due to recent life stresses, you may simply need time to "work through" the changes. If the anxiety is due to an underlying unhappiness with yourself or due to psychiatric disturbance, professional help will be needed. Your physician can refer you for further help if needed. Anti-anxiety medication is occasionally given if the stress is acute or if you are having trouble sleeping. Chronic or frequent use of these medications is not a good idea because the body becomes reliant on it, preventing you from dealing with life's normal stresses. Take your currently prescribed medications for your low potassium. Add some extra salt to your food to try to increase your salt level in your blood. I am giving you a prescription for some Vistaril for anxiety. FOLLOW-UP CARE: If you have been referred to a physician for follow-up care, call the physician s office for an appointment as you were instructed or within the next two days. If you experience worsening or a significant change in your symptoms, notify the physician immediately or return to the Emergency Department at any time for re-evaluation. Follow-up with your mental health provider this week. Prescriptions: Hydroxyzine Pamoate [Vistaril 25 mg Capsule] 25 - 50 mg PO QIDP PRN #15 capsule PRN Reason:
[2017-06-29] MEDS ORDERED: ASPIRIN 81 MG TABLET, CHEWABLE PO ONE (11:06)
[2017-06-29 11:22] LABS: ABSOLUTE BASOPHILS # (AUTO) 0.1 10^3/uL (0.0-0.2); ABSOLUTE EOSINOPHILS # (AUTO) 0.1 10^3/uL (0.0-0.6); ABSOLUTE LYMPHOCYTES (AUTO) 2.5 10^3/uL (0.5-4.7); ABSOLUTE MONOCYTES (AUTO) 0.5 10^3/uL (0.1-1.4); BASOPHILS % (AUTO) 0.5 % (0-2); EOSINOPHILS % (AUTO) 1.1 % (0-6); HEMOGLOBIN 10.9 g/dL (12.0-15.5); HGB HCT DIFFERENCE 0.7; LYMPHOCYTES % (AUTO) 22.3 % (13-45); MEAN CORPUSCULAR HEMOGLOBIN 28.6 pg (27.0-33.4); MEAN CORPUSCULAR VOLUME 84 fl (80-97); MONOCYTES % (AUTO) 4.8 % (3-13); RED BLOOD COUNT 3.81 10^6/uL (3.72-5.28); RED CELL DISTRIBUTION WIDTH 13.8 % (11.5-14.0); SEGMENTED NEUTROPHILS % (AUTO) 71.3 % (42-78); WHITE BLOOD COUNT 11.2 10^3/uL (4.0-10.5)
[2017-06-29 11:40] LABS: ALANINE AMINOTRANSFERASE 33 U/L (9-52); ALBUMIN 4.1 g/dL (3.5-5.0); ALKALINE PHOSPHATASE 140 U/L (38-126); ANION GAP 12 (5-19); ASPARTATE AMINO TRANSFERASE 18 U/L (14-36); BILIRUBIN,DIRECT 0.4 mg/dL (0.0-0.4); BILIRUBIN,TOTAL 0.4 mg/dL (0.2-1.3); BLOOD UREA NITROGEN 11 mg/dL (7-20); CALCIUM 9.7 mg/dL (8.4-10.2); CARBON DIOXIDE 28 mmol/L (22-30); CHLORIDE 91 mmol/L (98-107); CREATININE RESULT 0.89 mg/dL (0.52-1.25); GLUCOSE 81 mg/dL (75-110); LIPASE 152.1 U/L (23-300); POTASSIUM 3.3 mmol/L (3.6-5.0); TOTAL PROTEIN 6.5 g/dL (6.3-8.2)
[2017-06-29 11:50] LABS: CREATINE KINASE MB 1.26 ng/mL (<4.55)
[2017-06-29 11:51] VITALS: BP 143/61
[2017-06-29 11:55] LABS: ALCOHOL < 10 mg/dL (NONE DETECTED); TROPONIN I < 0.012 ng/mL
--- NOTE | 2017-06-29 12:17 | RADIOLOGY REPORT (SQ) ---
EXAM DESCRIPTION: CHEST PA/LAT COMPLETED DATE/TIME: 06/29/2017 11:40 am REASON FOR STUDY: Chest pain, smoker COMPARISON: 08/01/2015 EXAM PARAMETERS: NUMBER OF VIEWS: two views TECHNIQUE: Digital Frontal and Lateral radiographic views of the chest acquired. RADIATION DOSE: NA LIMITATIONS: none FINDINGS: LUNGS AND PLEURA: No opacities, masses or pneumothorax. No pleural effusion. MEDIASTINUM AND HILAR STRUCTURES: No masses or contour abnormalities. HEART AND VASCULAR STRUCTURES: Heart normal size. No evidence for failure. BONES: No acute findings. HARDWARE: None in the chest. OTHER: No other significant finding. IMPRESSION: NO SIGNIFICANT RADIOGRAPHIC FINDING IN THE CHEST. TECHNICAL DOCUMENTATION: JOB ID: [id number] [employer]- All Rights Reserved
[2017-06-29 12:21] LABS: APPEARANCE,URINE SLIGHTLY-CLOUDY; BILIRUBIN,URINE NEGATIVE (NEGATIVE); GLUCOSE, URINE NEGATIVE (NEGATIVE); KETONES,URINE NEGATIVE (NEGATIVE); LEUKOCYTE ESTERASE,URINE NEGATIVE (NEGATIVE); NITRITE,URINE NEGATIVE (NEGATIVE); PROTEIN,URINE NEGATIVE (NEGATIVE); URINE SPECIFIC GRAVITY 1.006; UROBILINOGEN,URINE NEGATIVE mg/dL (<2.0)
[2017-06-29 12:53] LABS: URINE BARBITURATES SCREEN NEGATIVE; URINE METHADONE SCREEN NEGATIVE; URINE OPIATES LOW NEGATIVE; URINE PHENCYCLIDINE SCREEN NEGATIVE
[2017-06-29] MEDS ORDERED: HYDROXYZINE PAMOATE 25 MG CAPSULE PO ONE (12:58)
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
--- NOTE | 2017-06-29 17:37 | EKG REPORT ---
SEVERITY:- ABNORMAL ECG - SINUS RHYTHM PROBABLE LEFT ATRIAL ABNORMALITY IVCD, CONSIDER ATYPICAL LBBB : Confirmed by: Dieter Muniz MD 29-Jun-2017 17:36:56
== END 2017-06-29 13:15 | disposition home or self-care (01) ==
LOC: ER 10:34
DX: Z76.0 Encounter for issue of repeat prescription (principal); R07.89 Other chest pain; F41.9 Anxiety disorder, unspecified; E87.6 Hypokalemia; Z79.899 Other long term (current) drug therapy; F17.210 Nicotine dependence, cigarettes, uncomplicated
CPT/HCPCS: 93005; 99285; 36415; 82553; 80307 ×3; 83690; 85025; 80053; 81001; 84484; 71020; 93010; A9270 ×2

== ENCOUNTER 2017-07-01 05:09 | Emergency (ER) | payer MEDICARE, MEDICAID ==
[2017-07-01 05:20] VITALS: BP 101/51
--- NOTE | 2017-07-01 06:01 | ER Document Report ---
ED General - General Chief Complaint: Psych Problem Stated Complaint: PSYCH EVAL Notes: 52-year-old female presents with "behavioral problems" per her triage sheet, but to me she states "I am so glad you are here I am withdrawing from my Xanax. " She describes feeling "horrible" but denies tremor vomiting or seizures. This been going on for a few days since she was cut off from benzodiazepines by her primary care doctor who is no longer practicing. She denies suicidal ideation homicidal ideation, and states that she is able to take the rest of her medications. She has a safe place to be at home and has no other symptoms at this time. TRAVEL OUTSIDE OF THE [place] IN LAST 30 DAYS: No - Related Data Allergies/Adverse Reactions: No Known Allergies Allergy (Verified 06/27/17 01:29) Past Medical History - Social History Smoking Status: Current Every Day Smoker Smoking Education Provided: Yes - The patient ED visit today was directly related to their abuse of tobacco. Family History: Arthritis, CAD, CVA, Hyperlipidemia, Hypertension, Malignancy Patient has suicidal ideation: No Patient has homicidal ideation: No - Past Medical History Cardiac Medical History: Reports: Hx Hypertension Denies: Hx Coronary Artery Disease, Hx Heart Attack Pulmonary Medical History: Reports: Hx COPD Denies: Hx Asthma, Hx Bronchitis, Hx Pneumonia Neurological Medical History: Reports: Hx Seizures. Denies: Hx Cerebrovascular Accident Endocrine Medical History: Reports: Hx Graves' Disease, Hx Hypothyroidism Renal/ Medical History: Denies: Hx Peritoneal Dialysis Malignancy Medical History: Reports: Hx Skin Cancer - melanoma a couple of years ago GI Medical History: Reports: Hx Gastroesophageal Reflux Disease Musculoskeltal Medical History: Denies Hx Arthritis - RHEUMATOID, Reports Hx Fibromyalgia, Reports Hx Musculoskeletal Deformity, Reports Hx Musculoskeletal Trauma Psychiatric Medical History: Reports: Hx Anxiety, Hx Bipolar Disorder, Hx Depression, Hx Post Traumatic Stress Disorder Traumatic Medical History: Reports: Hx Fractures Past Surgical History: Reports: Hx Section - x1, Hx Hysterectomy, Hx Orthopedic Surgery - L hip replacement, Hx Thyroid Surgery - Immunizations Immunizations up to date: Yes Hx Diphtheria, Pertussis, Tetanus Vaccination: Yes Review of Systems - Review of Systems Notes: REVIEW OF SYSTEMS GEN: D feels terrible s ENT: Denies sore throat, nasal discharge, ear pain EYES: Denies blurry vision, eye pain, discharge CV: Denies chest pain, palpitations, edema RESP: Denies cough, shortness of breath, wheezing GI: Denies abdominal pain, nausea, vomiting, diarrhea MSK: Denies joint pain/swelling, edema, SKIN: Denies rash, skin lesions LYMPH: Denies swollen glands/lymph nodes NEURO: Denies headache, focal weakness or numbness, dizziness PSYCH: Denies depression, suicidal or homicidal ideation PHYSICAL EXAMINATION General: No acute distress, well-nourished Head: Atraumatic, normocephalic ENT: Mouth normal, oropharynx moist, no exudates or tonsillar enlargement Eyes: Conjunctiva normal, pupils equal, lids normal Neck: No JVD, supple, no guarding CVS: Normal rate, regular rhythm, no murmurs Resp: No resp distress, equal and normal breath sounds bilaterally GI: Nondistended, soft, no tenderness to palpation, no rebound or guarding Ext: No deformities, no edema, normal range of motion in upper and lower ext Back: No CVA or midline TTP Skin: No rash, warm Lymphatic: No lymphadeopathy noted Neuro: Awake, alert. Face symmetric. GCS 15. Tremor. Psychiatric: Affect colorful no suicidal ideation, normal judgment linear thought process Physical Exam - Vital signs Vitals: Temp Pulse Resp BP Pulse Ox 98.9 F 110 H 18 101/51 L 98 07/01/17 05:19 07/01/17 05:19 07/01/17 05:19 07/01/17 05:19 07/01/17 05:19 Course - Re-evaluation Re-evalutation: 07/01/17 06:42 Patient presents with subjective symptoms of withdrawal from benzodiazepines. She has minimal tachycardia but is quite colorful and her affect in movements. She does not have tremor. She is not nauseous. There is no indication for IVC at this time. Clinically I do not think she requires treatment of her withdrawal in the emergency department or psychiatric assessment at this time. She was encouraged to follow-up with her primary care doctor as well as given return precautions for psychiatric and withdrawal type symptoms. I have discussed with the patient there likely diagnosis, aftercare plan, follow -up plans and my usual and customary return precautions. They verbalized understanding of this. - Vital Signs Vital signs: Temp Pulse Resp BP Pulse Ox 98.9 F 110 H 18 101/51 L 98 07/01/17 05:19 07/01/17 05:19 07/01/17 05:19 07/01/17 05:19 07/01/17 05:19 Discharge - Discharge Clinical Impression: Benzodiazepine dependence Condition: Good Disposition: HOME, SELF-CARE Instructions: Anxiety (OM) Additional Instructions: Please talk to your regular doctor about re-prescribing your Xanax if you think you need it. Please return to the ER for any suicidal thoughts.
== END 2017-07-01 06:37 | disposition home or self-care (01) ==
LOC: ER 05:09
DX: F13.20 Sedative, hypnotic or anxiolytic dependence, uncomplicated (principal); R00.0 Tachycardia, unspecified; F17.210 Nicotine dependence, cigarettes, uncomplicated; Z71.6 Tobacco abuse counseling; I10 Essential (primary) hypertension; J44.9 Chronic obstructive pulmonary disease, unspecified; Z85.820 Personal history of malignant melanoma of skin
CPT/HCPCS: 99284

== ENCOUNTER 2017-07-03 00:33 | Emergency (ER) | payer MEDICARE, MEDICAID ==
[2017-07-03 01:41] LABS: ABSOLUTE BASOPHILS # (AUTO) 0.1 10^3/uL (0.0-0.2); ABSOLUTE MONOCYTES (AUTO) 0.8 10^3/uL (0.1-1.4); ABSOLUTE NEUT (AUTO) 15.3 10^3/uL (1.7-8.2); BASOPHILS % (AUTO) 0.5 % (0-2); HEMATOCRIT 33.5 % (36.0-47.0); HEMOGLOBIN 11.8 g/dL (12.0-15.5); HGB HCT DIFFERENCE 1.9; LYMPHOCYTES % (AUTO) 11.2 % (13-45); MEAN CORPUSCULAR HEMOGLOBIN 29.1 pg (27.0-33.4); MEAN CORPUSCULAR HGB CONC 35.4 g/dL (32.0-36.0); MEAN CORPUSCULAR VOLUME 82 fl (80-97); MONOCYTES % (AUTO) 4.5 % (3-13); RED BLOOD COUNT 4.07 10^6/uL (3.72-5.28); RED CELL DISTRIBUTION WIDTH 13.6 % (11.5-14.0); SEGMENTED NEUTROPHILS % (AUTO) 83.8 % (42-78); WHITE BLOOD COUNT 18.3 10^3/uL (4.0-10.5)
[2017-07-03] MEDS ORDERED: LORAZEPAM 1 MG TABLET PO ONE ×2 (01:54→01:58)
[2017-07-03] MEDS ORDERED: HALOPERIDOL 2 MG TABLET PO ONE (01:55)
[2017-07-03 01:56] LABS: ALANINE AMINOTRANSFERASE 36 U/L (9-52); ALBUMIN 4.5 g/dL (3.5-5.0); ALKALINE PHOSPHATASE 148 U/L (38-126); ANION GAP 17 (5-19); ASPARTATE AMINO TRANSFERASE 19 U/L (14-36); BILIRUBIN,DIRECT 0.4 mg/dL (0.0-0.4); BILIRUBIN,TOTAL 0.5 mg/dL (0.2-1.3); BLOOD UREA NITROGEN 8 mg/dL (7-20); CALCIUM 10.3 mg/dL (8.4-10.2); CARBON DIOXIDE 24 mmol/L (22-30); CHLORIDE 101 mmol/L (98-107); CREATININE RESULT 0.85 mg/dL (0.52-1.25); GLUCOSE 122 mg/dL (75-110); POTASSIUM 3.3 mmol/L (3.6-5.0); SODIUM 142.2 mmol/L (137-145)
[2017-07-03 01:58] LABS: ALCOHOL < 10 mg/dL (NONE DETECTED)
[2017-07-03] MEDS ORDERED: OLANZAPINE 5 MG TAB.RAPDIS PO ONE (01:58)
[2017-07-03 02:18] LABS: APPEARANCE,URINE SLIGHTLY-CLOUDY; BILIRUBIN,URINE NEGATIVE (NEGATIVE); GLUCOSE, URINE NEGATIVE (NEGATIVE); KETONES,URINE TRACE mg/dL (NEGATIVE); LEUKOCYTE ESTERASE,URINE TRACE (NEGATIVE); NITRITE,URINE NEGATIVE (NEGATIVE); PROTEIN,URINE 100 mg/dL (NEGATIVE); URINE SPECIFIC GRAVITY 1.023
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
[2017-07-03 02:32] LABS: URINE BARBITURATES SCREEN NEGATIVE; URINE METHADONE SCREEN NEGATIVE; URINE OPIATES LOW UNCONFIRMED POSITIVE; URINE PHENCYCLIDINE SCREEN NEGATIVE
--- NOTE | 2017-07-03 08:53 | ER Document Report ---
ED Medical Screen (RME) - General Chief Complaint: Psych Problem Stated Complaint: PSYCH PROBLEM Time Seen by Provider: 07/03/17 01:22 TRAVEL OUTSIDE OF THE [place] IN LAST 30 DAYS: No - Related Data Allergies/Adverse Reactions: No Known Allergies Allergy (Verified 06/27/17 01:29) Past Medical History - Social History Chew tobacco use (# tins/day): No Frequency of alcohol use: Occasional Drug Abuse: Prescription drugs - Past Medical History Cardiac Medical History: Reports: Hx Hypertension Denies: Hx Coronary Artery Disease, Hx Heart Attack Pulmonary Medical History: Reports: Hx COPD Denies: Hx Asthma, Hx Bronchitis, Hx Pneumonia Neurological Medical History: Reports: Hx Seizures. Denies: Hx Cerebrovascular Accident Endocrine Medical History: Reports: Hx Graves' Disease, Hx Hypothyroidism Renal/ Medical History: Denies: Hx Peritoneal Dialysis Malignancy Medical History: Reports: Hx Skin Cancer - melanoma a couple of years ago GI Medical History: Reports: Hx Gastroesophageal Reflux Disease Musculoskeltal Medical History: Denies Hx Arthritis - RHEUMATOID, Reports Hx Fibromyalgia, Reports Hx Musculoskeletal Deformity, Reports Hx Musculoskeletal Trauma Psychiatric Medical History: Reports: Hx Anxiety, Hx Bipolar Disorder, Hx Depression, Hx Post Traumatic Stress Disorder Traumatic Medical History: Reports: Hx Fractures Past Surgical History: Reports: Hx Section - x1, Hx Hysterectomy, Hx Orthopedic Surgery - L hip replacement, Hx Thyroid Surgery - Immunizations Immunizations up to date: Yes Hx Diphtheria, Pertussis, Tetanus Vaccination: Yes Physical Exam - Vital signs Vitals: Temp Pulse Resp BP Pulse Ox 99.2 F 116 H 16 143/74 H 98 07/03/17 01:51 07/03/17 01:51 07/03/17 01:51 07/03/17 01:51 07/03/17 01:51 Course - Re-evaluation Re-evalutation: 07/03/17 08:52 As the [facility] physician I examined this patient. I reviewed the patient's chart. The patient is currently resting comfortably and requires no acute medical intervention. Disposition per psychiatry. - Vital Signs Vital signs: Temp Pulse Resp BP Pulse Ox 99.1 F 103 H 18 137/63 H 99 07/03/17 07:30 07/03/17 07:30 07/03/17 07:30 07/03/17 07:30 07/03/17 07:30 - Laboratory Result Diagrams: 07/03/17 01:32 07/03/17 01:32 Laboratory results interpreted by me: 07/03/17 07/03/17 07/03/17 01:32 01:32 01:45 WBC 18.3 H Hgb 11.8 L Hct 33.5 L Seg Neutrophils % 83.8 H Lymphocytes % 11.2 L Absolute Neutrophils 15.3 H Potassium 3.3 L Glucose 122 H Calcium 10.3 H Alkaline Phosphatase 148 H Urine Protein 100 H Urine Ketones TRACE H Urine Urobilinogen 2.0 H Ur Leukocyte Esterase TRACE H Salicylates < 1.0 L Acetaminophen < 10 L Doctor's Discharge - Discharge Clinical Impression: Acute psychosis, Benzodiazepine dependence, Evaluation by psychiatric service required, Hypokalemia Condition: Fair Disposition: PSYCH HOSP/UNIT
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
--- NOTE | 2017-07-03 09:09 | EKG REPORT ---
SEVERITY:- ABNORMAL ECG - SINUS TACHYCARDIA INCOMPLETE LEFT BUNDLE BRANCH BLOCK ANTERIOR Q WAVES, POSSIBLY DUE TO ILBBB ST DEPRESSION, CONSIDER ISCHEMIA, LAT LEADS VS LVH RELATED : Confirmed by: Charles Stokes 03-Jul-2017 09:08:57
[2017-07-03 10:35] VITALS: BP 129/62
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
== END 2017-07-03 10:50 | disposition home or self-care (01) ==
LOC: ER 00:33
DX: I10 Essential (primary) hypertension (principal); E87.6 Hypokalemia; F11.20 Opioid dependence, uncomplicated; F19.929 Other psychoactive substance use, unspecified with intoxication, unspecified; F13.99 Sedative, hypnotic or anxiolytic use, unspecified with unspecified sedative, hypnotic or anxiolytic-induced disorder; F11.99 Opioid use, unspecified with unspecified opioid-induced disorder; F60.3 Borderline personality disorder; Z90.710 Acquired absence of both cervix and uterus
CPT/HCPCS: 93005; 99285; 36415; 80307 ×4; 83735; 85025; 80053; 81001; 84484; 93010; A9270 ×2; J3490

== ENCOUNTER 2017-07-03 23:33 | Emergency (ER) | payer MEDICARE, MEDICAID ==
[2017-07-04 00:34] LABS: ABSOLUTE BASOPHILS # (AUTO) 0.1 10^3/uL (0.0-0.2); ABSOLUTE LYMPHOCYTES (AUTO) 3.1 10^3/uL (0.5-4.7); ABSOLUTE MONOCYTES (AUTO) 0.7 10^3/uL (0.1-1.4); ABSOLUTE NEUT (AUTO) 9.1 10^3/uL (1.7-8.2); BASOPHILS % (AUTO) 0.7 % (0-2); EOSINOPHILS % (AUTO) 0.2 % (0-6); HEMATOCRIT 34.3 % (36.0-47.0); HEMOGLOBIN 11.7 g/dL (12.0-15.5); HGB HCT DIFFERENCE 0.8; MEAN CORPUSCULAR HEMOGLOBIN 28.7 pg (27.0-33.4); MEAN CORPUSCULAR HGB CONC 34.2 g/dL (32.0-36.0); MEAN CORPUSCULAR VOLUME 84 fl (80-97); MONOCYTES % (AUTO) 5.4 % (3-13); RED BLOOD COUNT 4.08 10^6/uL (3.72-5.28); RED CELL DISTRIBUTION WIDTH 13.5 % (11.5-14.0); SEGMENTED NEUTROPHILS % (AUTO) 69.7 % (42-78)
[2017-07-04 00:50] LABS: ALANINE AMINOTRANSFERASE 34 U/L (9-52); ALBUMIN 4.4 g/dL (3.5-5.0); ALKALINE PHOSPHATASE 132 U/L (38-126); ANION GAP 11 (5-19); ASPARTATE AMINO TRANSFERASE 18 U/L (14-36); BILIRUBIN,DIRECT 0.5 mg/dL (0.0-0.4); BILIRUBIN,TOTAL 0.5 mg/dL (0.2-1.3); BLOOD UREA NITROGEN 11 mg/dL (7-20); CALCIUM 10.1 mg/dL (8.4-10.2); CARBON DIOXIDE 30 mmol/L (22-30); CHLORIDE 98 mmol/L (98-107); CREATININE RESULT 1.07 mg/dL (0.52-1.25); GLUCOSE 102 mg/dL (75-110); SODIUM 139.3 mmol/L (137-145); TOTAL PROTEIN 7.2 g/dL (6.3-8.2)
[2017-07-04 00:53] LABS: ALCOHOL < 10 mg/dL (NONE DETECTED)
[2017-07-04 00:55] LABS: POTASSIUM 2.9 mmol/L (3.6-5.0)
[2017-07-04 01:04] LABS: AMORPHOUS SEDIMENT,URINE TRACE /HPF; APPEARANCE,URINE SLIGHTLY-CLOUDY; BILIRUBIN,URINE NEGATIVE (NEGATIVE); GLUCOSE, URINE NEGATIVE (NEGATIVE); KETONES,URINE NEGATIVE (NEGATIVE); LEUKOCYTE ESTERASE,URINE MODERATE (NEGATIVE); NITRITE,URINE NEGATIVE (NEGATIVE); PROTEIN,URINE NEGATIVE (NEGATIVE); URINE SPECIFIC GRAVITY 1.009; UROBILINOGEN,URINE NEGATIVE mg/dL (<2.0)
[2017-07-04 01:17] LABS: URINE BARBITURATES SCREEN NEGATIVE; URINE METHADONE SCREEN NEGATIVE; URINE OPIATES LOW NEGATIVE; URINE PHENCYCLIDINE SCREEN NEGATIVE
--- NOTE | 2017-07-04 03:44 | ER Document Report ---
ED General - General Chief Complaint: Psych Problem Stated Complaint: PSYCH EVAL Time Seen by Provider: 07/03/17 23:58 TRAVEL OUTSIDE OF THE [place] IN LAST 30 DAYS: No - HPI Patient complains to provider of: Sore throat ear pain Notes: Patient was seen and evaluated by myself last night for psychiatric evaluation. Patient was cleared by psych this morning patient was discharged. Patient according to psychiatric notes has a history of drug abuse drug-seeking behavior and therefore changes her presentation to require these medications. Today patient was brought in by EMS. Upon interviewing patient patient states she is having ear pain and sore throat is requesting antibiotics. EMS run sheet states that patient coming for psychiatric evaluation. Apparently family members called EMS to the home. Patient denies any homicidal suicidal ideations. Patient does seem to have some tangential speech however is more coherent today ANO 3. Patient does state recently ran out of her Ativan and her Percocet.. Patient denies fevers chills nausea vomiting diarrhea. - Related Data Allergies/Adverse Reactions: No Known Allergies Allergy (Verified 06/27/17 01:29) Past Medical History - Social History Smoking Status: Current Some Day Smoker Frequency of alcohol use: None Drug Abuse: Marijuana Family History: Arthritis, CAD, CVA, Hyperlipidemia, Hypertension, Malignancy Patient has suicidal ideation: Yes Patient has homicidal ideation: Yes - Past Medical History Cardiac Medical History: Reports: Hx Hypertension Denies: Hx Coronary Artery Disease, Hx Heart Attack Pulmonary Medical History: Reports: Hx COPD Denies: Hx Asthma, Hx Bronchitis, Hx Pneumonia Neurological Medical History: Reports: Hx Seizures. Denies: Hx Cerebrovascular Accident Endocrine Medical History: Reports: Hx Graves' Disease, Hx Hypothyroidism Renal/ Medical History: Denies: Hx Peritoneal Dialysis Malignancy Medical History: Reports: Hx Skin Cancer - melanoma a couple of years ago GI Medical History: Reports: Hx Gastroesophageal Reflux Disease Musculoskeltal Medical History: Denies Hx Arthritis - RHEUMATOID, Reports Hx Fibromyalgia, Reports Hx Musculoskeletal Deformity, Reports Hx Musculoskeletal Trauma Psychiatric Medical History: Reports: Hx Anxiety, Hx Bipolar Disorder, Hx Depression, Hx Post Traumatic Stress Disorder Traumatic Medical History: Reports: Hx Fractures Past Surgical History: Reports: Hx Section - x1, Hx Hysterectomy, Hx Orthopedic Surgery - L hip replacement, Hx Thyroid Surgery - Immunizations Immunizations up to date: Yes Hx Diphtheria, Pertussis, Tetanus Vaccination: Yes Review of Systems - Review of Systems Constitutional: No symptoms reported EENT: Ear pain, Throat pain Cardiovascular: No symptoms reported Respiratory: No symptoms reported Gastrointestinal: No symptoms reported Genitourinary: No symptoms reported Female Genitourinary: No symptoms reported Musculoskeletal: No symptoms reported Skin: No symptoms reported Hematologic/Lymphatic: No symptoms reported Neurological/Psychological: No symptoms reported -: Yes All other systems reviewed and negative Physical Exam - Vital signs Vitals: Temp Pulse BP Pulse Ox 98.9 F 109 H 139/58 H 98 07/03/17 23:41 07/03/17 23:41 07/03/17 23:41 07/03/17 23:41 Interpretation: Normal - General General appearance: Appears well, Alert - HEENT Head: Normocephalic, Atraumatic Eyes: Normal Conjunctiva: Normal Cornea: Normal Extraocular movements intact: Yes Eyelashes: Normal Pupils: PERRL Ears: Normal External canal: Normal Tympanic membrane: Normal Nasal: Normal Mouth/Lips: Normal Mucous membranes: Normal Pharynx: Normal Neck: Normal - Respiratory Respiratory status: No respiratory distress Chest status: Nontender Breath sounds: Normal Chest palpation: Normal - Cardiovascular Rhythm: Regular Heart sounds: Normal auscultation Murmur: No - Abdominal Inspection: Normal Distension: No distension Bowel sounds: Normal Tenderness: Nontender Organomegaly: No organomegaly - Back Back: Normal, Nontender - Extremities General upper extremity: Normal inspection, Nontender, Normal color, Normal ROM , Normal temperature General lower extremity: Normal inspection, Nontender, Normal color, Normal ROM , Normal temperature, Normal weight bearing. No: Eva's sign - Neurological Neuro grossly intact: Yes Cognition: Normal Orientation: AAOx4 [place] Coma Scale Eye Opening: Spontaneous [place] Coma Scale Verbal: Oriented [place] Coma Scale Motor: Obeys Commands [place]y Coma Scale Total: 15 Speech: Normal Motor strength normal: LUE, RUE, LLE, RLE Sensory: Normal - Psychological Associated symptoms: Normal affect, Normal mood - Skin Skin Temperature: Warm Skin Moisture: Dry Skin Color: Normal Course - Re-evaluation Re-evalutation: 07/04/17 03:42 Laboratory values showed low potassium this will be replaced orally. Evaluation of the patient does not reveal any signs of acute infection. Patient does not look to have any signs of acute binu tonight no homicidal suicidal ideation. Patient states she does not have any way to return home tonight. Patient was discharged in the custody of [facility] yesterday. Will have social work consulted in the morning to further evaluate patient as of the patient has multiple recent visits to the ER. - Vital Signs Vital signs: Temp Pulse Resp BP Pulse Ox 98.9 F 109 H 139/58 H 98 07/03/17 23:41 07/03/17 23:41 07/03/17 23:41 07/03/17 23:41 - Laboratory Result Diagrams: 07/04/17 00:20 07/04/17 00:20 Laboratory results interpreted by me: 07/04/17 07/04/17 07/04/17 00:01 00:20 00:20 WBC 13.0 H Hgb 11.7 L Hct 34.3 L Absolute Neutrophils 9.1 H Potassium 2.9 L* Est GFR (Non-Af Amer) 54 L Direct Bilirubin 0.5 H Alkaline Phosphatase 132 H Ur Leukocyte Esterase MODERATE H Salicylates < 1.0 L Acetaminophen < 10 L Discharge - Discharge Clinical Impression: Hypokalemia, Polysubstance abuse, Sore throat (viral) Ear pain Qualifiers: Laterality: unspecified laterality Qualified Code(s): H92.09 - Otalgia, unspecified ear Condition: Good Instructions: Sore Throat ([facility]), Use of [id number] Ibuprofen ([facility]) Additional Instructions: Please follow-up with resources and clinics provided. He may take Tylenol Motrin for your pain. There is no signs of any acute infection. Forms: Smoking Cessation Education
[2017-07-04] MEDS ORDERED: POTASSIUM CHLORIDE 20 MEQ/15 ML UDCUP PO ONE ×2 (03:47→09:00)
--- NOTE | 2017-07-04 04:45 | EKG REPORT ---
SEVERITY:- ABNORMAL ECG - SINUS RHYTHM PROBABLE LEFT ATRIAL ABNORMALITY LEFT BUNDLE BRANCH BLOCK : Confirmed by: Charles Stokes 04-Jul-2017 04:14:58
[2017-07-04 07:36] VITALS: BP 121/55
[2017-07-04] MEDS ORDERED: ACETAMINOPHEN 325 MG TABLET PO PRN (07:54)
--- NOTE | 2017-07-04 10:26 | ER Document Report ---
Doctor's Note Notes: 07/04/17 09:54 Rounds: Patient is back for her fifth visit in 1 week. She has been evaluated by mental health and they do not feel she has a condition requiring inpatient care. Patient says she is on the fourth floor and that we are now at July. However, in all other ways, she seems to answer questions appropriately. Patient's potassium is low, 2.9, and she was to receive potassium, but through the cup of medication on the nurse who was giving it to her. Patient then required being restrained, although she is calm at this time. I am evaluating her and I am having the restraints removed. I believe the patient is capable of making a decision about leaving the ED or staying here. I do not think we have grounds to restrain her. Discharge planning is involved in plan of care. Patient has been fully assessed by mental health. Medically, the patient appears to be stable for discharge or transfer. Fermin Aguilera MD 07/04/17 10:31 Patient refused to take her potassium when offered again. She has been determined to be stable from a mental health point of view and ready for discharge. Medically, the patient appears to be stable for discharge or transfer. Patient will be discharged to the police custody as she will be removed from the ED. If she does not leave, she will be arrested and charged with assault. Fermin Aguilera MD
== END 2017-07-04 10:48 | disposition home or self-care (01) ==
LOC: ER 23:33
DX: F12.10 Cannabis abuse, uncomplicated (principal); F17.200 Nicotine dependence, unspecified, uncomplicated; E87.6 Hypokalemia; J02.8 Acute pharyngitis due to other specified organisms; B97.89 Other viral agents as the cause of diseases classified elsewhere; H92.09 Otalgia, unspecified ear; I10 Essential (primary) hypertension; J44.9 Chronic obstructive pulmonary disease, unspecified; Z85.820 Personal history of malignant melanoma of skin
CPT/HCPCS: 36415; 80053; 80307; 81001; 85025; 87070; 87086; 87880; 93005; 93010; 99285

== ENCOUNTER 2017-07-07 03:05 | Emergency (ER) | payer MEDICARE, MEDICAID ==
--- NOTE | 2017-07-07 03:22 | ER Document Report ---
ED General - General TRAVEL OUTSIDE OF THE [place]. IN LAST 30 DAYS: No <ARIANNE ZAIDI - Last Filed: 07/07/17 07:03> <SLOANE HAY - Last Filed: 07/07/17 09:33> <ARIANNE FAYE - Last Filed: 07/07/17 10:32> - General Stated Complaint: PSYCH EVAL Time Seen by Provider: 07/07/17 03:08 Notes: Patient is a 52-year-old female presents with complaint of being brought in by paramedics due to psychosis. Patient herself cannot tell me a whole lot. When she talks to me she is very tangential thoughts and the subject matter that she is trying to put together makes absolutely no sense. She goes from talking about her stuff being sent to a pawn shop, then to talking about at a child, then to talking about "pinching her nose" to help herself sleep. Report from the paramedics was that the patient has been psychotic at home has been throwing stuff. Patient apparently recently got a gel. She has been seen here several times the last 2 weeks. No further history is available from the patient as she is obviously psychotic at this time. (ARIANNE ZAIDI) - Related Data Allergies/Adverse Reactions: No Known Allergies Allergy (Verified 06/27/17 01:29) Past Medical History - Social History Smoking Status: Unknown if Ever Smoked Frequency of alcohol use: None Drug Abuse: None Family History: Arthritis, CAD, CVA, Hyperlipidemia, Hypertension, Malignancy - Past Medical History Cardiac Medical History: Reports: Hx Hypertension Denies: Hx Coronary Artery Disease, Hx Heart Attack Pulmonary Medical History: Reports: Hx COPD Denies: Hx Asthma, Hx Bronchitis, Hx Pneumonia Neurological Medical History: Reports: Hx Seizures. Denies: Hx Cerebrovascular Accident Endocrine Medical History: Reports: Hx Graves' Disease, Hx Hypothyroidism Renal/ Medical History: Denies: Hx Peritoneal Dialysis Malignancy Medical History: Reports: Hx Skin Cancer - melanoma a couple of years ago GI Medical History: Reports: Hx Gastroesophageal Reflux Disease Musculoskeltal Medical History: Denies Hx Arthritis - RHEUMATOID, Reports Hx Fibromyalgia, Reports Hx Musculoskeletal Deformity, Reports Hx Musculoskeletal Trauma Psychiatric Medical History: Reports: Hx Anxiety, Hx Bipolar Disorder, Hx Depression, Hx Post Traumatic Stress Disorder Traumatic Medical History: Reports: Hx Fractures Past Surgical History: Reports: Hx Section - x1, Hx Hysterectomy, Hx Orthopedic Surgery - L hip replacement, Hx Thyroid Surgery - Immunizations Immunizations up to date: Yes Hx Diphtheria, Pertussis, Tetanus Vaccination: Yes <ARIANNE ZAIDI - Last Filed: 07/07/17 07:03> Review of Systems - Review of Systems -: Yes ROS unobtainable due to patient's medical condition - Patient has hallucinations and psychotic. <ARIANNE ZAIDI - Last Filed: 07/07/17 07:03> Physical Exam <ARIANNE ZAIDI - Last Filed: 07/07/17 07:03> <SLOANE HAY - Last Filed: 07/07/17 09:33> <ARIANNE FAYE - Last Filed: 07/07/17 10:32> - Vital signs Vitals: Temp Pulse Resp BP Pulse Ox 99.0 F 99 16 142/51 H 100 07/07/17 03:13 07/07/17 03:13 07/07/17 03:13 07/07/17 03:13 07/07/17 03:13 - Notes Notes: General Appearance: Well nourished, alert, cooperative, no acute distress, no obvious discomfort. Patient is pleasant and kind, but obviously hallucinating and having tangential thoughts.. Vitals: reviewed, See vital signs table. Head: no swelling or tenderness to the head Eyes: PERRL, EOMI, Conjuctiva clear Mouth: No decreasd moisture Throat: No tonsillar inflammation, No airway obstruction, No lymphadenopathy Lungs: No wheezing, No rales, No rhonci, No accessory muscle use, good air exchange bilaterally. Heart: Normal rate, Regular rythm, No murmur, no rub Abdomen: Normal BS, soft, No rigidity, No abdominal tenderness, No guarding, no rebound, no abdominal masses, no organomegaly Extremities: strength 5/5 in all extremities, good pulses in all extremities, no swelling or tenderness in the extremities, no edema. Skin: warm, dry, appropriate color, no rash Neuro: speech clear, oriented x 3, normal affect, responds appropriately to questions. (ARIANNE ZAIDI) Course - Laboratory Result Diagrams: 07/07/17 03:13 07/07/17 03:13 <ARIANNE ZAIDI - Last Filed: 07/07/17 07:03> - Laboratory Result Diagrams: 07/07/17 03:13 07/07/17 03:13 <SLOANE HAY - Last Filed: 07/07/17 09:33> - Laboratory Result Diagrams: 07/07/17 03:13 07/07/17 03:13 <ARIANNE FAYE - Last Filed: 07/07/17 10:32> - Re-evaluation Re-evalutation: 07/07/17 04:11 EKG is reviewed and interpreted by me. EKG shows sinus rhythm with a rate of 96 bpm. Patient has no concerning ST segment changes. She does have a left bundle branch block which is old in comparison to her previous EKG from July 04, 2017. NV interval is within normal range. QRS duration QTc intervals are prolonged. 07/07/17 07:03 After the Ativan patient is finally sleeping. Patient has been very manic with flight of ideas since having hallucinations. We will have the patient evaluated by psychiatry. The only thing pending at this time is her urinalysis. She has a slight left-sided ptosis which I suspect this demargination. Her potassium level is low but section much improved comparison to her previous visits. I will give some oral potassium. Once patient's UA is back she will be medically stable for psychiatric evaluation. Dictation of this chart was performed using voice recognition software; therefore, there may be some unintended grammatical errors. (ARIANNE ZAIDI) - Vital Signs Vital signs: Temp Pulse Resp BP Pulse Ox 98.1 F 92 18 105/75 100 07/07/17 09:13 07/07/17 09:13 07/07/17 09:13 07/07/17 09:13 07/07/17 09:13 - Laboratory Laboratory results interpreted by me: 07/07/17 07/07/17 03:13 03:13 WBC 14.6 H Hgb 11.6 L Hct 33.8 L Absolute Neutrophils 10.3 H Potassium 3.2 L Carbon Dioxide 20 L Anion Gap 21 H BUN 39 H Creatinine 1.26 H Est GFR ( Amer) 54 L Est GFR (Non-Af Amer) 44 L Direct Bilirubin 0.5 H Alkaline Phosphatase 132 H Salicylates < 1.0 L Acetaminophen < 10 L Discharge <ARIANNE ZAIDI - Last Filed: 07/07/17 07:03> <SLOANE HAY - Last Filed: 07/07/17 09:33> <ARIANNE FAYE - Last Filed: 07/07/17 10:32> - Discharge Clinical Impression: Hypokalemia Psychosis Qualifiers: Psychosis type: unspecified psychosis type Qualified Code(s): F29 - Unspecified psychosis not due to a substance or known physiological condition Condition: Stable Disposition: HOME, SELF-CARE Additional Instructions: Bipolar Disorder Bipolar disorder is also called manic-depressive disorder. Depression alternates with brain hyperactivity called binu. Each phase lasts from several days to a few weeks. We don't know exactly what causes bipolar disorder , but it's treatable. During the "manic phase," you may feel elated and energetic. You may have racing thoughts, rapid speech, increased activity, and grandiose ideas. During this time, you may not realize how poor your judgement is. Inappropriate spending, drug abuse, excessive alcohol use, marriage problems, and irresponsible sexual behavior are common during the manic phase. During the "depressive phase," you might feel depressed, guilty, worthless , fatigued, and unable to concentrate. You might have thoughts of suicide. Good treatments are available for bipolar disorder. [place] is a classic drug for bipolar disorder, and is still often useful. If the manic phase is very mild, an antidepressant alone can be prescribed. If the manic phase is very severe, an antipsychotic medicine (such as Haldol) may be needed. The treatment must be matched to your symptoms, so it's important to work closely with your psychiatric care provider. Follow-up: You should follow up with your local behavioral health provider ( previously had been [facility]) for medication management minimally, as well as individual therapy. An outpatient referral sheet was provided to you for all local outpatient behavioral health agencies. Contact your physician(s), the hospital emergency department, or either mobile crisis numbers if you are losing control or having self- destructive thoughts. Referrals: [facility] [Outside] - 07/07/17 10:30 am
[2017-07-07 03:27] LABS: ABSOLUTE BASOPHILS # (AUTO) 0.1 10^3/uL (0.0-0.2); ABSOLUTE LYMPHOCYTES (AUTO) 3.5 10^3/uL (0.5-4.7); ABSOLUTE MONOCYTES (AUTO) 0.7 10^3/uL (0.1-1.4); ABSOLUTE NEUT (AUTO) 10.3 10^3/uL (1.7-8.2); BASOPHILS % (AUTO) 0.8 % (0-2); EOSINOPHILS % (AUTO) 0.2 % (0-6); HEMATOCRIT 33.8 % (36.0-47.0); HEMOGLOBIN 11.6 g/dL (12.0-15.5); LYMPHOCYTES % (AUTO) 23.9 % (13-45); MEAN CORPUSCULAR HEMOGLOBIN 28.6 pg (27.0-33.4); MEAN CORPUSCULAR HGB CONC 34.3 g/dL (32.0-36.0); MEAN CORPUSCULAR VOLUME 83 fl (80-97); MONOCYTES % (AUTO) 4.9 % (3-13); RED BLOOD COUNT 4.06 10^6/uL (3.72-5.28); RED CELL DISTRIBUTION WIDTH 13.5 % (11.5-14.0); SEGMENTED NEUTROPHILS % (AUTO) 70.2 % (42-78); WHITE BLOOD COUNT 14.6 10^3/uL (4.0-10.5)
[2017-07-07 03:39] LABS: ALANINE AMINOTRANSFERASE 44 U/L (9-52); ALBUMIN 4.5 g/dL (3.5-5.0); ALKALINE PHOSPHATASE 132 U/L (38-126); ASPARTATE AMINO TRANSFERASE 30 U/L (14-36); BILIRUBIN,DIRECT 0.5 mg/dL (0.0-0.4); BILIRUBIN,TOTAL 0.8 mg/dL (0.2-1.3); BLOOD UREA NITROGEN 39 mg/dL (7-20); CALCIUM 9.9 mg/dL (8.4-10.2); CREATININE RESULT 1.26 mg/dL (0.52-1.25); GLUCOSE 76 mg/dL (75-110); MAGNESIUM 2.1 mg/dL (1.6-2.3)
[2017-07-07 03:40] LABS: ALCOHOL < 10 mg/dL (NONE DETECTED)
[2017-07-07 03:51] LABS: ANION GAP 21 (5-19); CARBON DIOXIDE 20 mmol/L (22-30); CHLORIDE 99 mmol/L (98-107); POTASSIUM 3.2 mmol/L (3.6-5.0); SODIUM 140.4 mmol/L (137-145)
[2017-07-07] MEDS ORDERED: LORAZEPAM INJ 2 MG/1 ML VIAL IM ONE (04:18)
[2017-07-07] MEDS ORDERED: POTASSIUM CHLORIDE 10 MEQ TABLET.SA PO ONE (07:03)
--- NOTE | 2017-07-07 08:41 | EKG REPORT ---
SEVERITY:- ABNORMAL ECG - SINUS RHYTHM NONSPECIFIC INTRAVENTRICULAR CONDUCTION DELAY PROBABLE LVH WITH SECONDARY REPOL ABNRM ANTERIOR Q WAVES, POSSIBLY DUE TO LVH and LBBB. CAN NOT R/O ANTERIOR CO : Confirmed by: Charles Stokes 07-Jul-2017 08:40:59
[2017-07-07 09:14] VITALS: BP 105/75
--- NOTE | 2017-07-07 09:46 | ER Document Report ---
Doctor's Note Notes: 07/07/17 09:44 Very pleasant 52-year-old female who has been assessed by the psychology department here at [facility]. They are very familiar with this patient. Please see reference note on July 03. Dr. Fuller and the psychological team do not believe that the patient is a harm to herself or others at this time. Patient is currently very calm and cooperative. She is not tangential on my examination when directed distinct questions. Patient denies any suicidal or homicidal ideations. I have reiterated that the patient would not be been receiving any Ativan or pain medications by myself. The patient does have a primary care physician. Patient does have psychology follow-up. Given the expert on staff psychological opinion, multiple visits currently not threatening to herself or others, I do not believe that we are able to enforce IVC at this time. We have provided outpatient follow-up. The patient is able to repeat the follow-up options for her. She understands that she has to go through her primary care physician for possible Ativan or narcotic prescriptions. We have provided psychological outpatient follow-up. We have contacted the patient's family prior to discharge.
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
== END 2017-07-07 12:34 | disposition home or self-care (01) ==
LOC: ER 03:05
DX: E87.6 Hypokalemia (principal); F13.99 Sedative, hypnotic or anxiolytic use, unspecified with unspecified sedative, hypnotic or anxiolytic-induced disorder; F11.99 Opioid use, unspecified with unspecified opioid-induced disorder; F12.99 Cannabis use, unspecified with unspecified cannabis-induced disorder; F32.9 Major depressive disorder, single episode, unspecified; F60.3 Borderline personality disorder; F29 Unspecified psychosis not due to a substance or known physiological condition; I10 Essential (primary) hypertension; Z96.642 Presence of left artificial hip joint; Z90.710 Acquired absence of both cervix and uterus
CPT/HCPCS: 93005; 99285; 96372; 36415; 80307 ×3; 83735; 85025; 80053; 93010; J2060; A9270

== ENCOUNTER 2017-07-07 15:21 | Emergency (ER) | payer MEDICARE, MEDICAID ==
[2017-07-07 15:37] VITALS: BP 121/70
--- NOTE | 2017-07-07 16:17 | ER Document Report ---
ED General - General Mode of Arrival: Ambulatory Information source: Patient TRAVEL OUTSIDE OF THE [place] IN LAST 30 DAYS: No - General Chief Complaint: Altered Mental Status Stated Complaint: PSYCH EVAL Time Seen by Provider: 07/07/17 15:55 Notes: Initital greeting was by OVEREDGE MACHINE OPERATOR Mayda Juares. Please see her note for interaction. Patient is a 52 year old female that presents to the emergency department accompanied by sister for altered mental status. Patient was seen here earlier today for biploar disorder and was cleared and discharged by psychiatry. Patient was later found wandering [facility] and returned back to the emergency department. At bedside patient states that she wants to go home. Patinet denies any SI, HI, or hallucinations. (NU CASTRO) - Related Data Allergies/Adverse Reactions: No Known Allergies Allergy (Verified 07/07/17 15:23) Past Medical History - General Information source: Patient - Social History Smoking Status: Unknown if Ever Smoked Family History: Arthritis, CAD, CVA, Hyperlipidemia, Hypertension, Malignancy Patient has suicidal ideation: No Patient has homicidal ideation: No - Past Medical History Cardiac Medical History: Reports: Hx Hypertension Pulmonary Medical History: Reports: Hx COPD Neurological Medical History: Reports: Hx Seizures Endocrine Medical History: Reports: Hx Graves' Disease, Hx Hypothyroidism Malignancy Medical History: Reports: Hx Skin Cancer - melanoma a couple of years ago GI Medical History: Reports: Hx Gastroesophageal Reflux Disease Musculoskeltal Medical History: Reports Hx Fibromyalgia, Reports Hx Musculoskeletal Deformity, Reports Hx Musculoskeletal Trauma Psychiatric Medical History: Reports: Hx Anxiety, Hx Bipolar Disorder, Hx Depression, Hx Post Traumatic Stress Disorder Traumatic Medical History: Reports: Hx Fractures Past Surgical History: Reports: Hx Section - x1, Hx Hysterectomy, Hx Orthopedic Surgery - L hip replacement, Hx Thyroid Surgery - Immunizations Immunizations up to date: Yes Hx Diphtheria, Pertussis, Tetanus Vaccination: Yes Review of Systems - Review of Systems Constitutional: No symptoms reported EENT: No symptoms reported Cardiovascular: No symptoms reported Respiratory: No symptoms reported Gastrointestinal: No symptoms reported Genitourinary: No symptoms reported Female Genitourinary: No symptoms reported Musculoskeletal: No symptoms reported Skin: No symptoms reported Hematologic/Lymphatic: No symptoms reported Neurological/Psychological: See HPI -: Yes All other systems reviewed and negative Physical Exam - General General appearance: Alert, Other - Cooperative - HEENT Head: Normocephalic, Atraumatic - Respiratory Respiratory status: No respiratory distress Breath sounds: Normal - Cardiovascular Rhythm: Regular Heart sounds: Normal auscultation Murmur: No Friction rub: No Gallop: None auscultated - Neurological Neuro grossly intact: Yes Cognition: Normal Orientation: AAOx4 [place] Coma Scale Eye Opening: Spontaneous [place] Coma Scale Verbal: Oriented [place] Coma Scale Motor: Obeys Commands [place] Coma Scale Total: 15 Speech: Normal - Skin Skin Temperature: Warm Skin Moisture: Dry Skin Color: Normal - Vital signs Vitals: Temp Pulse Resp BP Pulse Ox 98.5 F 99 18 121/70 91 L 07/07/17 15:32 07/07/17 15:32 07/07/17 15:32 07/07/17 15:32 07/07/17 15:32 Course - Re-evaluation Re-evalutation: 07/07/17 16:52 Patient was seen in the emergency department triage area by staff that were very familiar with the patient. She is at baseline. She has displaying no dangerous behavior toward me at this point. She is actually been discharged already with a cab ride directly to [facility] for her follow-up. (TIP MARTINEZ) - Vital Signs Vital signs: Temp Pulse Resp BP Pulse Ox 98.5 F 99 18 121/70 91 L 07/07/17 15:32 07/07/17 15:32 07/07/17 15:32 07/07/17 15:32 07/07/17 15:32 Discharge - Discharge Clinical Impression: Bipolar disorder Condition: Stable Disposition: HOME, SELF-CARE Additional Instructions: Go directly to [facility] for further evaluation/treatment as was discussed. Arunaibe 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 - Scribe Written by Keagan:: Keagan Montemayor, 07/07/2017 16:17 acting as scribe for :: Leydi
--- NOTE | 2017-07-07 16:32 | ER Document Report ---
ED Medical Screen (RME) - General Chief Complaint: Altered Mental Status Stated Complaint: PSYCH EVAL Time Seen by Provider: 07/07/17 15:55 Mode of Arrival: Ambulatory Information source: Patient, Relative Notes: 52-year-old female presents to ED for confusion psych problems. Her sister states that the patient the patient was discharged from the hospital and went by Akbar got a soda from someone they came to her office which is on [facility]. She said she brought her paperwork from the hospital where she was discharged. Sister states patient was very confused and she had it in her mind that her sister and children were all . She states he called 1 of the numbers on the paper and they said she could not get seen today. She came back to the hospital because she needed the patient to be seen and admitted somewhere because she did not think she could take care of her at home. When I try to talk to the patient the patient would not answer any questions appropriately she kept saying that everyone was out to get her and she but she did say she was not thinking about hurting herself or anyone else. I went to speak with Dr. Holley who is the provider in the [facility]. The mental health worker who had seen her earlier was in the office talking to Dr. Holley so I had her come in and speak with the patient and sister. This is to kept insisting that she was not taken her home that the patient needed to be admitted somewhere. I left the patient speaking with the nurse and the mental health provider and explained to Dr. Holley that I was turning the patient over to him for him to complete the care on this patient. I have greeted and performed a rapid initial assessment of this patient. A comprehensive ED assessment and evaluation of the patient, analysis of test results and completion of medical decision making process will be conducted by an additional ED providers. TRAVEL OUTSIDE OF THE [place] IN LAST 30 DAYS: No - Related Data Allergies/Adverse Reactions: No Known Allergies Allergy (Verified 07/07/17 15:23) Past Medical History - Past Medical History Cardiac Medical History: Reports: Hx Hypertension Pulmonary Medical History: Reports: Hx COPD Neurological Medical History: Reports: Hx Seizures Endocrine Medical History: Reports: Hx Graves' Disease, Hx Hypothyroidism Renal/ Medical History: Denies: Hx Peritoneal Dialysis Malignancy Medical History: Reports: Hx Skin Cancer - melanoma a couple of years ago GI Medical History: Reports: Hx Gastroesophageal Reflux Disease Musculoskeltal Medical History: Reports Hx Fibromyalgia, Reports Hx Musculoskeletal Deformity, Reports Hx Musculoskeletal Trauma Psychiatric Medical History: Reports: Hx Anxiety, Hx Bipolar Disorder, Hx Depression, Hx Post Traumatic Stress Disorder Traumatic Medical History: Reports: Hx Fractures Past Surgical History: Reports: Hx Section - x1, Hx Hysterectomy, Hx Orthopedic Surgery - L hip replacement, Hx Thyroid Surgery - Immunizations Immunizations up to date: Yes Hx Diphtheria, Pertussis, Tetanus Vaccination: Yes Physical Exam - Vital signs Vitals: Temp Pulse Resp BP Pulse Ox 98.5 F 99 18 121/70 91 L 07/07/17 15:32 07/07/17 15:32 07/07/17 15:32 07/07/17 15:32 07/07/17 15:32 Course - Vital Signs Vital signs: Temp Pulse Resp BP Pulse Ox 98.5 F 99 18 121/70 91 L 07/07/17 15:32 07/07/17 15:32 07/07/17 15:32 07/07/17 15:32 07/07/17 15:32
== END 2017-07-07 16:48 | disposition home or self-care (01) ==
LOC: ER 15:21
DX: F31.9 Bipolar disorder, unspecified (principal); R41.82 Altered mental status, unspecified; I10 Essential (primary) hypertension; J44.9 Chronic obstructive pulmonary disease, unspecified; K21.9 Gastro-esophageal reflux disease without esophagitis; Z90.710 Acquired absence of both cervix and uterus; Z96.642 Presence of left artificial hip joint
CPT/HCPCS: 99283

== ENCOUNTER 2017-07-08 22:43 | Emergency (ER) | payer MEDICARE, MEDICAID ==
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
[2017-07-09 00:26] LABS: ABSOLUTE BASOPHILS # (AUTO) 0.1 10^3/uL (0.0-0.2); ABSOLUTE LYMPHOCYTES (AUTO) 3.1 10^3/uL (0.5-4.7); ABSOLUTE MONOCYTES (AUTO) 0.7 10^3/uL (0.1-1.4); ABSOLUTE NEUT (AUTO) 6.6 10^3/uL (1.7-8.2); BASOPHILS % (AUTO) 0.8 % (0-2); EOSINOPHILS % (AUTO) 0.4 % (0-6); HEMATOCRIT 34.4 % (36.0-47.0); HEMOGLOBIN 11.8 g/dL (12.0-15.5); LYMPHOCYTES % (AUTO) 29.4 % (13-45); MEAN CORPUSCULAR HEMOGLOBIN 28.8 pg (27.0-33.4); MEAN CORPUSCULAR HGB CONC 34.4 g/dL (32.0-36.0); MEAN CORPUSCULAR VOLUME 84 fl (80-97); MONOCYTES % (AUTO) 6.4 % (3-13); RED BLOOD COUNT 4.11 10^6/uL (3.72-5.28); RED CELL DISTRIBUTION WIDTH 13.3 % (11.5-14.0); WHITE BLOOD COUNT 10.4 10^3/uL (4.0-10.5)
[2017-07-09 00:42] LABS: ALANINE AMINOTRANSFERASE 50 U/L (9-52); ALBUMIN 4.2 g/dL (3.5-5.0); ALKALINE PHOSPHATASE 114 U/L (38-126); ANION GAP 14 (5-19); ASPARTATE AMINO TRANSFERASE 37 U/L (14-36); BILIRUBIN,DIRECT 0.4 mg/dL (0.0-0.4); BILIRUBIN,TOTAL 0.5 mg/dL (0.2-1.3); BLOOD UREA NITROGEN 13 mg/dL (7-20); CALCIUM 10.3 mg/dL (8.4-10.2); CARBON DIOXIDE 25 mmol/L (22-30); CHLORIDE 102 mmol/L (98-107); CREATININE RESULT 0.91 mg/dL (0.52-1.25); GLUCOSE 108 mg/dL (75-110); POTASSIUM 3.4 mmol/L (3.6-5.0); SODIUM 140.5 mmol/L (137-145); TOTAL PROTEIN 6.7 g/dL (6.3-8.2)
[2017-07-09 00:45] LABS: ALCOHOL < 10 mg/dL (NONE DETECTED)
[2017-07-09 01:24] LABS: AMORPHOUS SEDIMENT,URINE TRACE /HPF; APPEARANCE,URINE SLIGHTLY-CLOUDY; BILIRUBIN,URINE NEGATIVE (NEGATIVE); GLUCOSE, URINE NEGATIVE (NEGATIVE); KETONES,URINE TRACE mg/dL (NEGATIVE); LEUKOCYTE ESTERASE,URINE SMALL (NEGATIVE); NITRITE,URINE NEGATIVE (NEGATIVE); PROTEIN,URINE NEGATIVE (NEGATIVE); URINE SPECIFIC GRAVITY 1.016; UROBILINOGEN,URINE NEGATIVE mg/dL (<2.0)
[2017-07-09] MEDS ORDERED: HALOPERIDOL 5 MG TABLET PO ONE (02:06)
[2017-07-09 02:30] LABS: URINE BARBITURATES SCREEN NEGATIVE; URINE OPIATES LOW NEGATIVE; URINE PHENCYCLIDINE SCREEN NEGATIVE
--- NOTE | 2017-07-09 03:28 | EKG REPORT ---
SEVERITY:- ABNORMAL ECG - SINUS RHYTHM PROBABLE LEFT ATRIAL ABNORMALITY NONSPECIFIC INTRAVENTRICULAR CONDUCTION DELAY LEFT VENTRICULAR HYPERTROPHY ANTERIOR INFARCT, AGE INDETERMINATE : Confirmed by: Charles Stokes 09-Jul-2017 03:28:11
[2017-07-09] MEDS ORDERED: LORAZEPAM INJ 2 MG/1 ML VIAL IM ONE (04:28)
--- NOTE | 2017-07-09 11:15 | ER Document Report ---
Doctor's Note Notes: 07/09/17 11:14 Rounds: Chart reviewed. Patient not interviewed because she is sleeping. I am very familiar with this patient as are all the personnel in the emergency department. This is her eighth visit in the month of June, thus far. Labs all essentially normal. Vital signs are all normal. Patient appears to be medically stable for transfer or discharge. Fermin Aguilera MD
[2017-07-09 11:43] VITALS: BP 116/66
[2017-07-09 12:52] LABS: URINE METHADONE SCREEN NEGATIVE
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
== END 2017-07-09 12:16 | disposition home or self-care (01) ==
LOC: ER 22:43
DX: F29 Unspecified psychosis not due to a substance or known physiological condition (principal); F31.9 Bipolar disorder, unspecified; R45.1 Restlessness and agitation; I10 Essential (primary) hypertension; E03.9 Hypothyroidism, unspecified; Z90.710 Acquired absence of both cervix and uterus; Z96.642 Presence of left artificial hip joint; F13.99 Sedative, hypnotic or anxiolytic use, unspecified with unspecified sedative, hypnotic or anxiolytic-induced disorder; F11.99 Opioid use, unspecified with unspecified opioid-induced disorder; F12.99 Cannabis use, unspecified with unspecified cannabis-induced disorder; F60.3 Borderline personality disorder
CPT/HCPCS: 93005; 99285; 96372; 36415; 80307 ×4; 85025; 80053; 81001; 93010; A9270; J2060

== ENCOUNTER 2017-07-09 21:22 | Emergency (ER) | payer MEDICARE, MEDICAID ==
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
[2017-07-09] MEDS ORDERED: ZIPRASIDONE MESYLATE INJ/PF 20 MG SDV IM ONE (22:20)
[2017-07-09 22:54] LABS: ABSOLUTE BASOPHILS # (AUTO) 0.1 10^3/uL (0.0-0.2); ABSOLUTE EOSINOPHILS # (AUTO) 0.1 10^3/uL (0.0-0.6); ABSOLUTE MONOCYTES (AUTO) 0.9 10^3/uL (0.1-1.4); ABSOLUTE NEUT (AUTO) 7.7 10^3/uL (1.7-8.2); BASOPHILS % (AUTO) 0.8 % (0-2); EOSINOPHILS % (AUTO) 0.7 % (0-6); HEMATOCRIT 35.6 % (36.0-47.0); HEMOGLOBIN 12.1 g/dL (12.0-15.5); HGB HCT DIFFERENCE 0.7; LYMPHOCYTES % (AUTO) 31.2 % (13-45); MEAN CORPUSCULAR HEMOGLOBIN 28.5 pg (27.0-33.4); MEAN CORPUSCULAR HGB CONC 33.9 g/dL (32.0-36.0); MEAN CORPUSCULAR VOLUME 84 fl (80-97); MONOCYTES % (AUTO) 7.3 % (3-13); RED BLOOD COUNT 4.24 10^6/uL (3.72-5.28); RED CELL DISTRIBUTION WIDTH 13.1 % (11.5-14.0); WHITE BLOOD COUNT 12.9 10^3/uL (4.0-10.5)
[2017-07-09 23:08] LABS: ALANINE AMINOTRANSFERASE 51 U/L (9-52); ALBUMIN 4.4 g/dL (3.5-5.0); ALKALINE PHOSPHATASE 122 U/L (38-126); ANION GAP 15 (5-19); ASPARTATE AMINO TRANSFERASE 37 U/L (14-36); BILIRUBIN,DIRECT 0.2 mg/dL (0.0-0.4); BILIRUBIN,TOTAL 0.3 mg/dL (0.2-1.3); BLOOD UREA NITROGEN 12 mg/dL (7-20); CALCIUM 10.4 mg/dL (8.4-10.2); CARBON DIOXIDE 27 mmol/L (22-30); CHLORIDE 100 mmol/L (98-107); CREATININE RESULT 0.88 mg/dL (0.52-1.25); GLUCOSE 147 mg/dL (75-110); POTASSIUM 3.2 mmol/L (3.6-5.0); SODIUM 141.6 mmol/L (137-145); TOTAL PROTEIN 7.1 g/dL (6.3-8.2)
[2017-07-09] MEDS ORDERED: LORAZEPAM INJ 2 MG/1 ML VIAL IM PRN (23:13)
[2017-07-09 23:19] LABS: ALCOHOL < 10 mg/dL (NONE DETECTED)
[2017-07-09] MEDS ORDERED: POTASSIUM CHLORIDE 10 MEQ TABLET.SA PO ONE (23:40)
[2017-07-10 08:40] VITALS: BP 130/70
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
--- NOTE | 2017-07-10 09:35 | ER Document Report ---
Doctor's Note Notes: 07/10/17 09:35 Rounds: Chart reviewed and patient interviewed. This is 1 of numerous visits this month of June to this emergency department. Vital signs are normal. Labs are essentially normal except for very slight elevation in white cell count. She has been evaluated by mental health. Patient appears to be medically stable for transfer or discharge. Rashawn Aguilera MD
--- NOTE | 2017-07-11 09:43 | PSYCHOLOGICAL NOTE ---
Psych Note - Psych Note Psych Note: Met with Patient during this current visit. Advised Patient once again that her continued to visits to the ED seeking addictive medication would no longer be acceptable. Educated her again on the importance of taking her prescribed medication, following up with provider in the community, and taking responsibility for her health. Advised Patient that providers at the hospital and in the community are aware of her manipulation and feigning of psychosis and IDD. Patient was also advised of her upcoming court dates and provided copies with the dates. Patient indicated she understood. Patient was alert and oriented to person, place, time, and circumstance. Mood was euthymic and affect was mood appropriate. She denied suicidal / homicidal ideation, intent, or plan. She denied psychosis and no delusions were noted, though she stated "I'm afraid of the green gas that keeps coming from my pillow. " When I replied, "this is what I am talking about" she stated "I know, ok." Thought processes were linear, rational, and organized. Conversational speech was within normal limits for rate, tone, and prosody. Attention and concentration was fair as evidenced by her ability to advise what her court dates were in reference to (i.e.what the charges were for). Insight, judgment, and impulse control are poor. 1. Borderline Personality Disorder 2. Opioid Use Disorder 3. Benzodiazepine Use Disorder Impression / Plan: Patient is psychiatrically clear for discharge. Patient has been to ED approximately 15 times in past 2 weeks. She attempts to present as though she is psychotic, IDD, or very childish, but is often an act in an attempt to get to the hospital for addictive medications such as opioids and benzodiazepines. She has been advised this is unacceptable and she is to follow up with her provider and take any medications as prescribed. She was also advised the hospital is not to be used for respite and for living purposes and she can return to her home in [place]. Attending physicians are encouraged to consider the Patient's diagnoses and addiction history prior to prescribing opioids and benzodiazepines, or any other addictive medications. The Controlled Substance Registry Database was used to confirm her use and doctor shopping habits. Ed physician in agreement with recommendations nad disposition. Of note, patient [id number] called several hours after patient discharge inquiring whether she was being "committed or discharged." She was informed we could not confirm nor deny whether patient was present in the hospital. In the background, the Patient's son, Pawan, was heard saying "if she was discharged, there is going to be a problem." The [id number] then stated, "well, we have to go to work later and we would be the ones to pick her up, so we need to know if she is being committed." Once again, she was informed we could not confirm or deny whether the Patient was in the hospital. Again, Pawan was in the background and heard to say " I'm going to kill whoever discharged her." I relayed this information to security and to ED Nurse Plastics Engineering Teacher.
== END 2017-07-10 09:40 | disposition home or self-care (01) ==
LOC: ER 21:22
DX: F60.3 Borderline personality disorder (principal); F31.60 Bipolar disorder, current episode mixed, unspecified; F19.10 Other psychoactive substance abuse, uncomplicated; F31.9 Bipolar disorder, unspecified; F17.200 Nicotine dependence, unspecified, uncomplicated
CPT/HCPCS: 99285; 96372; 36415; 80307; 85025; 80053; J2060; J3486; A9270

== ENCOUNTER 2017-08-28 13:12 | Inpatient (IN) | payer MEDICAID, MEDICARE ==
--- NOTE | 2017-08-28 13:51 | ER Document Report ---
ED Blood Pressure Problem - General Chief Complaint: Low Blood Pressure Stated Complaint: BLOOD PRESSURE ISSUES Notes: 52-year-old female patient had a syncopal episode while incarcerated today. Patient was brought to the emergency department for evaluation. Has been incarcerated for several months. History of diabetes. History of other issues. Supposedly on thyroid medication as well as blood pressure medication. Patient does have a history of mental health disorder as well. States that she was getting her lunch tray felt like she was about to pass out and did. Landed on her buttocks and hit her left hand against something. Abrasion to the left fifth metacarpal area. TRAVEL OUTSIDE OF THE [place] 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 - Social History Smoking Status: Former Smoker Chew tobacco use (# tins/day): No Frequency of alcohol use: None Drug Abuse: None Lives with: Other Family History: Arthritis, CAD, CVA, Hyperlipidemia, Hypertension, Malignancy Patient has suicidal ideation: No Patient has homicidal ideation: No - Past Medical History Cardiac Medical History: Reports: Hx Hypertension Denies: Hx Heart Attack Pulmonary Medical History: Reports: Hx COPD Denies: Hx Asthma, Hx Bronchitis, Hx Pneumonia Neurological Medical History: Reports: Hx Seizures Endocrine Medical History: Reports: Hx Graves' Disease, Hx Hypothyroidism Renal/ Medical History: Denies: Hx Peritoneal Dialysis Malignancy Medical History: Reports: Hx Skin Cancer - melanoma a couple of years ago GI Medical History: Reports: Hx Gastroesophageal Reflux Disease Musculoskeltal Medical History: Comment Only Hx Arthritis - RHEUMATOID, Reports Hx Fibromyalgia, Reports Hx Musculoskeletal Deformity, Reports Hx Musculoskeletal Trauma Psychiatric Medical History: Reports: Hx Anxiety, Hx Bipolar Disorder, Hx Depression, Hx Post Traumatic Stress Disorder Traumatic Medical History: Reports: Hx Fractures Past Surgical History: Reports: Hx Section - x1, Hx Hysterectomy, Hx Orthopedic Surgery - L hip replacement, Hx Thyroid Surgery - Immunizations Immunizations up to date: Yes Hx Diphtheria, Pertussis, Tetanus Vaccination: Yes Review of Systems - Review of Systems Constitutional: Malaise, Weakness. denies: Fever, Weight loss, Recent illness EENT: denies: Eye pain, Eye discharge, Blurred vision, Difficulty swallowing, Throat swelling Cardiovascular: Syncope, Dizziness, Lightheaded. denies: Chest pain, Palpitations, Heart racing, Edema Respiratory: denies: Cough, Hurts to breathe, Short of breath, Wheezing Gastrointestinal: denies: Abdominal pain, Diarrhea, Nausea, Vomiting, Black stools, Rectal bleeding Genitourinary: denies: Burning, Dysuria, Discharge, Frequency, Flank pain, Hematuria Female Genitourinary: Post menopausal. denies: , Irregular period, Vaginal discharge, Vaginal bleeding Musculoskeletal: Back pain, Joint pain, Muscle pain. denies: Leg swelling Skin: Other - abrasion left hand. denies: Change in color, Lesions, Rash Neurological/Psychological: Depression. denies: Dementia, Weakness, Gait changes, Lost consciousness, Headaches Physical Exam - Vital signs Vitals: Temp Pulse Resp BP Pulse Ox 97.8 F 85 18 113/74 98 08/28/17 13:19 08/28/17 13:19 08/28/17 13:19 08/28/17 13:19 08/28/17 13:19 Interpretation: Normal - General General appearance: Appears well, Alert - HEENT Head: Normocephalic, Atraumatic Eyes: Normal Pupils: PERRL - Respiratory Respiratory status: No respiratory distress Chest status: Nontender Breath sounds: Normal Chest palpation: Normal - Cardiovascular Rhythm: Regular Heart sounds: Normal auscultation Murmur: No - Abdominal Inspection: Normal Distension: No distension Bowel sounds: Normal Tenderness: Nontender Organomegaly: No organomegaly - Back Back: Normal, Nontender, Tender. No: Deformity/step-off, CVA tenderness - Extremities General upper extremity: Normal inspection, Nontender, Normal color, Normal ROM , Normal temperature. No: Tender, Edema General lower extremity: Normal inspection, Nontender, Normal color, Normal ROM , Normal temperature, Normal weight bearing. No: Eva's sign - Neurological Neuro grossly intact: Yes Cognition: Normal Orientation: AAOx4 [place] Coma Scale Eye Opening: Spontaneous [place] Coma Scale Verbal: Oriented [place] Coma Scale Motor: Obeys Commands [place] Coma Scale Total: 15 Speech: Normal Motor strength normal: LUE, RUE, LLE, RLE Sensory: Normal - Psychological Associated symptoms: Normal affect, Normal mood - Skin Skin Temperature: Warm Skin Moisture: Dry Skin Color: Normal, Other - superficial abrasion left lateral hand. There is a bruise noted on the right sacral area. Course - Re-evaluation Re-evalutation: 08/28/17 15:00 Patient with hypotension. Orthostatic vital signs as followed: 79/54 with a heart rate of 88, sitting 73/28 with a heart rate of 94, standing 64/31 with a heart rate of 95. Patient does seem to have a drop in her hemoglobin and hematocrit. Will add rectal exam and a fecal occult blood test. Will type and screen. Anticipate admit. X-ray in the low back and hand as well. Nonsuturable abrasion to the left hand will x-ray as well. Will update tetanus as well. 08/28/17 16:08 Laboratory 08/28/17 08/28/17 08/28/17 14:17 14:17 14:17 WBC 9.7 RBC 3.51 L Hgb 10.3 L Hct 29.4 L MCV 84 MCH 29.4 MCHC 35.1 RDW 15.5 H Plt Count 404 Seg Neutrophils % 77.0 Lymphocytes % 15.8 Monocytes % 6.3 Eosinophils % 0.4 Basophils % 0.5 Absolute Neutrophils 7.5 Absolute Lymphocytes 1.5 Absolute Monocytes 0.6 Absolute Eosinophils 0.0 Absolute Basophils 0.0 Sodium 132.2 L Potassium 3.8 Chloride 94 L Carbon Dioxide 27 Anion Gap 11 BUN 24 H Creatinine 1.43 H Est GFR ( Amer) 46 L Est GFR (Non-Af Amer) 38 L Glucose 110 Calcium 10.6 H Total Bilirubin 0.5 Direct Bilirubin 0.4 Neonat Total Bilirubin Not Reportable Neonat Direct Bilirubin Not Reportable Neonat Indirect Bili Not Reportable AST 15 ALT 38 Alkaline Phosphatase 101 Troponin I < 0.012 Total Protein 6.5 Albumin 4.0 Urine Color Urine Appearance Urine pH Ur Specific Latta Urine Protein Urine Glucose (UA) Urine Ketones Urine Blood Urine Nitrite Urine Bilirubin Urine Urobilinogen Ur Leukocyte Esterase Urine WBC (Auto) Urine RBC (Auto) U Hyaline Cast (Auto) Urine Bacteria (Auto) Squamous Epi Cells Auto Amorphous Sediment Auto Urine Mucus (Auto) Urine Ascorbic Acid Stool Occult Blood Blood Type Antibody Screen 08/28/17 08/28/17 08/28/17 14:17 14:27 15:05 WBC RBC Hgb Hct MCV MCH MCHC RDW Plt Count Seg Neutrophils % Lymphocytes % Monocytes % Eosinophils % Basophils % Absolute Neutrophils Absolute Lymphocytes Absolute Monocytes Absolute Eosinophils Absolute Basophils Sodium Potassium Chloride Carbon Dioxide Anion Gap BUN Creatinine Est GFR ( Amer) Est GFR (Non-Af Amer) Glucose Calcium Total Bilirubin Direct Bilirubin Neonat Total Bilirubin Neonat Direct Bilirubin Neonat Indirect Bili AST ALT Alkaline Phosphatase Troponin I Total Protein Albumin Urine Color YELLOW Urine Appearance SLIGHTLY-CLOUDY Urine pH 7.0 Ur Specific Latta 1.005 Urine Protein NEGATIVE Urine Glucose (UA) NEGATIVE Urine Ketones NEGATIVE Urine Blood SMALL H Urine Nitrite NEGATIVE Urine Bilirubin NEGATIVE Urine Urobilinogen NEGATIVE Ur Leukocyte Esterase NEGATIVE Urine WBC (Auto) 4 Urine RBC (Auto) 1 U Hyaline Cast (Auto) 11 Urine Bacteria (Auto) TRACE Squamous Epi Cells Auto 8 Amorphous Sediment Auto TRACE Urine Mucus (Auto) RARE Urine Ascorbic Acid NEGATIVE Stool Occult Blood NEGATIVE Blood Type B NEGATIVE Antibody Screen NEGATIVE Lumbar Spine X-Ray 08/28/17 14:10 IMPRESSION: Acute upper endplate L1 compression deformity with 25% loss of height Hand X-Ray 08/28/17 14:11 IMPRESSION: NEGATIVE STUDY OF THE LEFT HAND. NO RADIOGRAPHIC EVIDENCE OF ACUTE INJURY. Blood pressure coming back up. Occult blood negative. Will admit for syncope episode, dehydration, anemia, compression fracture of the L-spine consulted hospitalist who agrees to admit at this time - Vital Signs Vital signs: Temp Pulse Resp BP Pulse Ox 97.8 F 85 18 80/30 L 100 08/28/17 13:19 08/28/17 13:19 08/28/17 13:19 08/28/17 15:41 08/28/17 15:41 - Laboratory Result Diagrams: 08/28/17 14:17 08/28/17 14:17 Laboratory results interpreted by me: 08/28/17 08/28/17 08/28/17 14:17 14:17 14:27 RBC 3.51 L Hgb 10.3 L Hct 29.4 L RDW 15.5 H Sodium 132.2 L Chloride 94 L BUN 24 H Creatinine 1.43 H Est GFR ( Amer) 46 L Est GFR (Non-Af Amer) 38 L Calcium 10.6 H Urine Blood SMALL H Critical Care Note - Critical Care Note Total time excluding time spent on procedures (mins): 60 Comments: Hypotension, tachycardia Discharge - Discharge Clinical Impression: Syncope and collapse Hypotension Qualifiers: Hypotension type: unspecified hypotension type Qualified Code(s): I95.9 - Hypotension, unspecified Compression fracture of lumbar vertebra Qualifiers: Encounter type: initial encounter Lumbar vertebra fracture level: L1 Fracture type: closed Qualified Code(s): S32.010A - Wedge compression fracture of first lumbar vertebra, initial encounter for closed fracture Anemia Qualifiers: Anemia type: unspecified type Qualified Code(s): D64.9 - Anemia, unspecified Disposition: ADMITTED INPATIENT Admitting Provider: [facility] Admitted: Telemetry Referrals: EMILY DEY FNP [Primary Care Provider] - Follow up as needed
[2017-08-28] MEDS ORDERED: DIPH/PERTUSS(ACELL)/TETANUS VAC/PF 0.5 ML SYR (>=10YO) IM ONE (14:10)
[2017-08-28] MEDS: NORMAL SALINE 1000 ML 1,000 ML IV PRN ×2 (14:32→19:21)
[2017-08-28 14:35] LABS: ABSOLUTE LYMPHOCYTES (AUTO) 1.5 10^3/uL (0.5-4.7); ABSOLUTE MONOCYTES (AUTO) 0.6 10^3/uL (0.1-1.4); ABSOLUTE NEUT (AUTO) 7.5 10^3/uL (1.7-8.2); BASOPHILS % (AUTO) 0.5 % (0-2); EOSINOPHILS % (AUTO) 0.4 % (0-6); HEMATOCRIT 29.4 % (36.0-47.0); HEMOGLOBIN 10.3 g/dL (12.0-15.5); LYMPHOCYTES % (AUTO) 15.8 % (13-45); MEAN CORPUSCULAR HEMOGLOBIN 29.4 pg (27.0-33.4); MEAN CORPUSCULAR HGB CONC 35.1 g/dL (32.0-36.0); MEAN CORPUSCULAR VOLUME 84 fl (80-97); MONOCYTES % (AUTO) 6.3 % (3-13); PLATELET COUNT 404 10^3/uL (150-450); RED BLOOD COUNT 3.51 10^6/uL (3.72-5.28); RED CELL DISTRIBUTION WIDTH 15.5 % (11.5-14.0); TOTAL CELLS COUNTED % (AUTO) 100 %; WHITE BLOOD COUNT 9.7 10^3/uL (4.0-10.5)
[2017-08-28 14:50] LABS: AMORPHOUS SEDIMENT,URINE TRACE /HPF; APPEARANCE,URINE SLIGHTLY-CLOUDY; BILIRUBIN,URINE NEGATIVE (NEGATIVE); COLOR,URINE YELLOW; GLUCOSE, URINE NEGATIVE (NEGATIVE); KETONES,URINE NEGATIVE (NEGATIVE); LEUKOCYTE ESTERASE,URINE NEGATIVE (NEGATIVE); NITRITE,URINE NEGATIVE (NEGATIVE); PROTEIN,URINE NEGATIVE (NEGATIVE); URINE SPECIFIC GRAVITY 1.005; UROBILINOGEN,URINE NEGATIVE mg/dL (<2.0)
[2017-08-28 14:56] LABS: ALANINE AMINOTRANSFERASE 38 U/L (9-52); ALKALINE PHOSPHATASE 101 U/L (38-126); ANION GAP 11 (5-19); ASPARTATE AMINO TRANSFERASE 15 U/L (14-36); BILIRUBIN,DIRECT 0.4 mg/dL (0.0-0.4); BILIRUBIN,TOTAL 0.5 mg/dL (0.2-1.3); BLOOD UREA NITROGEN 24 mg/dL (7-20); CALCIUM 10.6 mg/dL (8.4-10.2); CARBON DIOXIDE 27 mmol/L (22-30); CHLORIDE 94 mmol/L (98-107); GLUCOSE 110 mg/dL (75-110); POTASSIUM 3.8 mmol/L (3.6-5.0); SODIUM 132.2 mmol/L (137-145); TOTAL PROTEIN 6.5 g/dL (6.3-8.2)
--- NOTE | 2017-08-28 15:24 | RADIOLOGY REPORT (SQ) ---
EXAM DESCRIPTION: HAND LEFT 3 VIEWS COMPLETED DATE/TIME: 08/28/2017 3:08 pm REASON FOR STUDY: pain COMPARISON: None. EXAM PARAMETERS: NUMBER OF VIEWS: Three views. TECHNIQUE: AP, lateral and oblique radiographic images acquired of the left hand. LIMITATIONS: None. FINDINGS: MINERALIZATION: Normal. BONES: No acute fracture or dislocation. No worrisome bone lesions. JOINTS: No effusions. SOFT TISSUES: No soft tissue swelling. No foreign body. OTHER: No other significant finding. IMPRESSION: NEGATIVE STUDY OF THE LEFT HAND. NO RADIOGRAPHIC EVIDENCE OF ACUTE INJURY. TECHNICAL DOCUMENTATION: JOB ID: [id number] [employer]- All Rights Reserved
--- NOTE | 2017-08-28 15:29 | RADIOLOGY REPORT (SQ) ---
EXAM DESCRIPTION: L SPINE WHOLE COMPLETED DATE/TIME: 08/28/2017 3:08 pm REASON FOR STUDY: fall COMPARISON: Lumbar spine 09/20/2009 NUMBER OF VIEWS: Five views including obliques. TECHNIQUE: AP, lateral, oblique, and sacral radiographic images acquired of the lumbar spine. LIMITATIONS: None. FINDINGS: MINERALIZATION: Osteopenic SEGMENTATION: Normal. No transitional anatomy. ALIGNMENT: Normal. VERTEBRAE: Acute upper endplate L1 compression deformity with 25% loss of height. By plain film, no significant retropulsion of the posterosuperior corner of L1. DISCS: Disc space loss of height at L3-4 and L5-S1 POSTERIOR ELEMENTS: Pedicles and facets are intact. No pars defect or posterior arch defects. HARDWARE: None in the spine. PARASPINAL SOFT TISSUES: 7 mm density over the right upper quadrant, could reflect material in the st omach rather than a right sided kidney stone or gallstone. PELVIS: Right SI joint sclerosis. Remainder of the bony pelvis is not well seen. OTHER: No other significant finding. IMPRESSION: Acute upper endplate L1 compression deformity with 25% loss of height TECHNICAL DOCUMENTATION: JOB ID: [id number] [employer]- All Rights Reserved
[2017-08-28] MEDS ORDERED: HYDROCODONE/ACETAMINOPHEN 5-325 MG TABLET PO ONE (16:23)
[2017-08-28] MEDS ORDERED: KETOROLAC TROMETHAMINE INJ/PF 30 MG/1 ML SDV IV ONE (16:23)
[2017-08-28] MEDS ORDERED: NORMAL SALINE 1000 ML 1,000 ML IV ONE (16:48)
--- NOTE | 2017-08-28 16:52 | RADIOLOGY REPORT (SQ) ---
EXAM DESCRIPTION: CHEST SINGLE VIEW COMPLETED DATE/TIME: 08/28/2017 4:42 pm REASON FOR STUDY: syncope COMPARISON: 11/19/2016. 06/29/2017. EXAM PARAMETERS: NUMBER OF VIEWS: One view. TECHNIQUE: Single frontal radiographic view of the chest acquired. RADIATION DOSE: NA LIMITATIONS: None. FINDINGS: LUNGS AND PLEURA: No infiltrates, masses or pneumothorax. No pleural effusion. MEDIASTINUM AND HILAR STRUCTURES: No masses. Contour normal. HEART AND VASCULAR STRUCTURES: Heart normal in size. Normal vasculature. BONES: No acute findings. HARDWARE: None in the chest. OTHER: Densities noted overlying the anterior right and left 5th ribs most likely secondary to nipple shadows. . IMPRESSION: No acute disease. . TECHNICAL DOCUMENTATION: JOB ID: [id number] [employer]- All Rights Reserved
[2017-08-28] MEDS ORDERED: KETOROLAC TROMETHAMINE INJ/PF 30 MG/1 ML SDV IV PRN (18:14)
[2017-08-28] MEDS ORDERED: IPRATROPIUM/ALBUTEROL 0.5-2.5 MG/3 ML AMPUL NEB PRN (18:14)
[2017-08-28] MEDS ORDERED: MAGNESIUM HYDROXIDE SUSP 30 ML UDCUP PO PRN (18:14)
[2017-08-28] MEDS ORDERED: ACETAMINOPHEN 325 MG TABLET PO PRN (18:14)
[2017-08-28] MEDS ORDERED: MAG HYDROX/AL HYDROX/SIMETH SUSP 30 ML UDCUP PO PRN (18:14)
[2017-08-28] MEDS ORDERED: ZOLPIDEM TARTRATE 5 MG TABLET PO PRN (18:20)
--- NOTE | 2017-08-28 18:44 | EKG REPORT ---
SEVERITY:- ABNORMAL ECG - SINUS RHYTHM IVCD, CONSIDER ATYPICAL LBBB : Confirmed by: Dieter Muniz MD 28-Aug-2017 18:43:28
[2017-08-28] MEDS: NORMAL SALINE 1000 ML 1,000 ML IV SCH (19:21)
[2017-08-28 20:09] LABS: URINE AMPHETAMINES SCREEN NEGATIVE; URINE BARBITURATES SCREEN NEGATIVE; URINE BENZODIAZEPINES SCREEN NEGATIVE; URINE COCAINE SCREEN NEGATIVE; URINE MARIJUANA (THC) SCREEN NEGATIVE; URINE METHADONE SCREEN NEGATIVE; URINE PHENCYCLIDINE SCREEN NEGATIVE
[2017-08-29] MEDS: ARIPIPRAZOLE 5 MG TABLET PO SCH ×2 (00:27→21:42)
[2017-08-29] MEDS: HEPARIN SOD (PORCINE) 5,000 UNIT/ML 1 ML SYRINGE SUBCUT SCH ×4 (00:28→21:41)
[2017-08-29] MEDS ORDERED: INFLUENZA ADLT QUAD (36MOS+) 2017-18 VAC 0.5 ML SYR IM PRN (04:41)
[2017-08-29 05:22] LABS: ABSOLUTE LYMPHOCYTES (AUTO) 1.6 10^3/uL (0.5-4.7); ABSOLUTE MONOCYTES (AUTO) 0.4 10^3/uL (0.1-1.4); ABSOLUTE NEUT (AUTO) 3.6 10^3/uL (1.7-8.2); BASOPHILS % (AUTO) 0.8 % (0-2); EOSINOPHILS % (AUTO) 0.9 % (0-6); HEMATOCRIT 23.6 % (36.0-47.0); HEMOGLOBIN 8.3 g/dL (12.0-15.5); LYMPHOCYTES % (AUTO) 28.3 % (13-45); MEAN CORPUSCULAR HEMOGLOBIN 29.3 pg (27.0-33.4); MEAN CORPUSCULAR HGB CONC 35.3 g/dL (32.0-36.0); MEAN CORPUSCULAR VOLUME 83 fl (80-97); MONOCYTES % (AUTO) 6.5 % (3-13); PLATELET COUNT 315 10^3/uL (150-450); RED BLOOD COUNT 2.84 10^6/uL (3.72-5.28); RED CELL DISTRIBUTION WIDTH 15.6 % (11.5-14.0); SEGMENTED NEUTROPHILS % (AUTO) 63.5 % (42-78); TOTAL CELLS COUNTED % (AUTO) 100 %; WHITE BLOOD COUNT 5.7 10^3/uL (4.0-10.5)
[2017-08-29] MEDS ORDERED: NORMAL SALINE 1000 ML 2,000 ML IV ONE (05:30)
[2017-08-29] MEDS: NORMAL SALINE 1000 ML 1,000 ML IV SCH ×2 (05:30→09:17)
[2017-08-29 05:37] LABS: ANION GAP 9 (5-19); BLOOD UREA NITROGEN 21 mg/dL (7-20); CALCIUM 8.8 mg/dL (8.4-10.2); CARBON DIOXIDE 22 mmol/L (22-30); CHLORIDE 106 mmol/L (98-107); CREATINE KINASE 24 U/L (30-135); GLUCOSE 97 mg/dL (75-110); POTASSIUM 3.8 mmol/L (3.6-5.0)
--- NOTE | 2017-08-29 06:52 | PDOC H&P ---
History of Present Illness Admission Date/PCP: 08/28/17 16:37 ZAID MARSHALL Patient complains of: Syncope History of Present Illness: MYLENE ANGLIN is a 52 year old female with a past medical history of hypothyroidism, COPD PTSD, bipolar 1. Patient presents in the custody of state following a syncopal episode prior to a meal. Patient is a very poor historian and manic subsequent history obtained by the record. Patient syncopized prior to a meal she denies prior symptoms, there was no limb shaking or incontinence. She is unclear of current medications as she is incarcerated for several weeks. In the emergency room she is found to have an L1 fracture, prerenal azotemia, orthostatic hypotension of 70/50 and bradycardia, she receives several liters of normal saline and is referred to the hospitalist for admission. Patient denies previous episode, denies headache, palpitations, chest pain, shortness of breath, nausea or vomiting. She admittedly feels much better. Past Medical History Cardiac Medical History: Reports: Hypertension Denies: Myocardial Infarction Pulmonary Medical History: Reports: Chronic Obstructive Pulmonary Disease (COPD) Denies: Asthma, Bronchitis, Pneumonia Endocrine Medical History: Reports: Hypothyroidism Malignancy Medical History: Reports: Skin Cancer - melanoma a couple of years ago GI Medical History: Reports: Gastroesophageal Reflux Disease Musculoskeltal Medical History: Reports: Fibromyalgia Comment Only: Arthritis - RHEUMATOID Psychiatric Medical History: Reports: Bipolar Disorder, Depression, Post Traumatic Stress Disorder Hematology: Denies: Anemia Past Surgical History Past Surgical History: Reports: Section - x1, Hysterectomy, Orthopedic Surgery - L hip replacement Social History Information Source: Patient Lives with: Other Smoking Status: Former Smoker Frequency of Alcohol Use: None Hx Recreational Drug Use: No Drugs: Marijuana Hx Prescription Drug Abuse: No - Advance Directive Resuscitation Status: Full Code Family History Family History: Arthritis, CAD, CVA, Hyperlipidemia, Hypertension, Malignancy Parental Family History Reviewed: Yes Children Family History Reviewed: Yes Sibling(s) Family History Reviewed.: Yes Medication/Allergy Home Medications: Amitriptyline HCl [Elavil 25 mg Tablet] 25 mg PO QHS 08/28/17 Buspirone HCl [Buspar 15 mg Tablet] 15 mg PO DAILY 08/28/17 Duloxetine HCl [Cymbalta] 60 mg PO DAILY 08/28/17 Furosemide [Lasix 40 mg Tablet] 40 mg PO QAM 08/28/17 Hydroxyzine Pamoate [Vistaril 50 mg Capsule] 50 mg PO Q8 08/28/17 Levetiracetam [Keppra 500 mg Tablet] 500 mg PO Q12 08/28/17 Levothyroxine Sodium [Synthroid 0.075 mg Tablet] 0.075 mg PO Q6AM 08/28/17 Pantoprazole Sodium [Protonix] 40 mg PO DAILY 08/28/17 Potassium Chloride [Klor-Con 8] 8 meq PO BID 08/28/17 Allergies/Adverse Reactions: No Known Allergies Allergy (Verified 07/07/17 15:23) Review of Systems ROS unobtainable: Due to mental status Physical Exam Vital Signs: Temp Pulse Resp BP Pulse Ox 98.8 F 100 16 90/48 L 97 08/29/17 04:00 08/29/17 04:00 08/29/17 04:00 08/29/17 04:00 08/29/17 04:00 Intake & Output 08/27/17 08/28/17 08/29/17 11:59 11:59 11:59 Intake Total 500 Balance 500 Weight 63.4 kg General appearance: PRESENT: no acute distress, well-developed, well-nourished Head exam: PRESENT: atraumatic, normocephalic Eye exam: PRESENT: conjunctiva pink, EOMI, PERRLA. ABSENT: scleral icterus Ear exam: PRESENT: normal external ear exam Mouth exam: PRESENT: moist, tongue midline Neck exam: ABSENT: carotid bruit, JVD, lymphadenopathy, thyromegaly Respiratory exam: PRESENT: clear to auscultation dre. ABSENT: rales, rhonchi, wheezes Cardiovascular exam: PRESENT: RRR. ABSENT: diastolic murmur, rubs, systolic murmur Pulses: PRESENT: normal dorsalis pedis pul Vascular exam: PRESENT: normal capillary refill GI/Abdominal exam: PRESENT: normal bowel sounds, soft. ABSENT: distended, guarding, mass, organolmegaly, rebound, tenderness Rectal exam: PRESENT: deferred Extremities exam: PRESENT: full ROM. ABSENT: calf tenderness, clubbing, pedal edema Neurological exam: PRESENT: alert, awake, oriented to person, oriented to place , oriented to time, oriented to situation, CN II-XII grossly intact. ABSENT: motor sensory deficit Psychiatric exam: PRESENT: appropriate affect, normal mood. ABSENT: homicidal ideation, suicidal ideation Skin exam: PRESENT: dry, intact, warm. ABSENT: cyanosis, rash Results Laboratory Results: 08/29/17 04:15 08/29/17 04:15 08/29/17 08/29/17 04:15 04:15 WBC 5.7 RBC 2.84 L Hgb 8.3 L Hct 23.6 L MCV 83 MCH 29.3 MCHC 35.3 RDW 15.6 H Plt Count 315 Seg Neutrophils % 63.5 Lymphocytes % 28.3 Monocytes % 6.5 Eosinophils % 0.9 Basophils % 0.8 Absolute Neutrophils 3.6 Absolute Lymphocytes 1.6 Absolute Monocytes 0.4 Absolute Eosinophils 0.0 Absolute Basophils 0.0 Sodium 137.0 Potassium 3.8 Chloride 106 Carbon Dioxide 22 Anion Gap 9 BUN 21 H Creatinine 1.34 H Est GFR ( Amer) 50 L Est GFR (Non-Af Amer) 41 L Glucose 97 Calcium 8.8 08/29/17 04:15 Creatine Kinase 24 L Impressions: Lumbar Spine X-Ray 08/28/17 14:10 IMPRESSION: Acute upper endplate L1 compression deformity with 25% loss of height Hand X-Ray 08/28/17 14:11 IMPRESSION: NEGATIVE STUDY OF THE LEFT HAND. NO RADIOGRAPHIC EVIDENCE OF ACUTE INJURY. Chest X-Ray 08/28/17 16:09 IMPRESSION: No acute disease. . Assessment & Plan - Diagnosis (1) Orthostatic hypotension Is this a current diagnosis for this admission?: Yes Plan: Likely multifactorial secondary to antipsychotic medication and prerenal azotemia. Abilify ordered given reduced risk for hypotension. Follow-up orthostatic blood pressures following IV fluid resuscitation and LISA stockings. (2) Bipolar 1 disorder Is this a current diagnosis for this admission?: Yes Plan: Unclear outpatient antipsychotic use. Abilify ordered given reduced risk for hypotension. (3) Prerenal azotemia Is this a current diagnosis for this admission?: Yes Plan: IV fluid challenge reevaluate chemistry (4) Compression fracture of lumbar vertebra Qualifiers: Encounter type: initial encounter Lumbar vertebra fracture level: L1 Fracture type: closed Qualified Code(s): S32.010A - Wedge compression fracture of first lumbar vertebra, initial encounter for closed fracture Is this a current diagnosis for this admission?: Yes Plan: Fortunatly the patient has minimal symptoms. Toradol as needed and supportive care. - Time Time Spent: 50 to 70 Minutes - Inpatient Certification Medical Necessity: Need Close Monitoring Due to Risk of Patient Decompensation
[2017-08-29] MEDS: LEVOTHYROXINE SODIUM 0.05 MG TABLET PO SCH (07:26)
[2017-08-29] MEDS: DOCUSATE SODIUM 100 MG CAPSULE PO SCH ×2 (09:16→17:06)
[2017-08-29] MEDS ORDERED: RISPERIDONE 0.25 MG TABLET PO SCH (10:00)
[2017-08-29] MEDS ORDERED: DOCUSATE SODIUM 100 MG/10 ML UDC PO SCH (10:00)
[2017-08-29] MEDS ORDERED: DULOXETINE HCL 30 MG CAPSULE.DR PO ONE (15:30)
[2017-08-29] MEDS ORDERED: RINGERS SOLUTION,LACTATED 1,000 ML IV PRN (17:07)
--- NOTE | 2017-08-29 17:16 | PDOC PROGRESS REPORT ---
Subjective Progress Note for:: 08/29/17 Subjective:: Pt feels significantly better, no furthur falls or syncope, she is oriented. No back pain. She feels fairly calm, would like to reduce the aount of sedating meds she needs overall and she will discuss with her doctor. No chest pain or dyspnea, no abd pain, nausea or emesis. Reason For Visit: HYPOTENSION SYNCOPE BIPOLAR Physical Exam Vital Signs: Temp Pulse Resp BP Pulse Ox 99.1 F 107 H 18 103/44 L 99 08/29/17 12:33 08/29/17 15:00 08/29/17 12:33 08/29/17 12:33 08/29/17 12:33 Intake & Output 08/28/17 08/29/17 08/30/17 06:59 06:59 06:59 Intake Total 1244 562 Balance 1244 562 Weight 0 g General appearance: PRESENT: no acute distress, cooperative, thin Head exam: PRESENT: atraumatic, normocephalic Eye exam: PRESENT: conjunctiva pink, EOMI. ABSENT: scleral icterus Mouth exam: PRESENT: moist Neck exam: ABSENT: lymphadenopathy Respiratory exam: PRESENT: clear to auscultation dre, unlabored. ABSENT: accessory muscle use, chest wall tenderness, crackles, decreased breath sounds, prolonged expiratory phas, rales, tachypnea, wheezes Cardiovascular exam: PRESENT: RRR. ABSENT: systolic murmur GI/Abdominal exam: PRESENT: normal bowel sounds, soft. ABSENT: distended, firm , guarding, rebound, tenderness Rectal exam: PRESENT: deferred Extremities exam: ABSENT: pedal edema Musculoskeletal exam: PRESENT: ambulatory Neurological exam: PRESENT: alert, awake, oriented to person, oriented to place , oriented to time, oriented to situation, CN II-XII grossly intact Psychiatric exam: PRESENT: anxious Focused psych exam: PRESENT: flight of ideas Skin exam: PRESENT: dry, intact. ABSENT: abrasion, mottled Results Laboratory Results: 08/29/17 04:15 08/29/17 04:15 08/29/17 08/29/17 04:15 04:15 WBC 5.7 RBC 2.84 L Hgb 8.3 L Hct 23.6 L MCV 83 MCH 29.3 MCHC 35.3 RDW 15.6 H Plt Count 315 Seg Neutrophils % 63.5 Lymphocytes % 28.3 Monocytes % 6.5 Eosinophils % 0.9 Basophils % 0.8 Absolute Neutrophils 3.6 Absolute Lymphocytes 1.6 Absolute Monocytes 0.4 Absolute Eosinophils 0.0 Absolute Basophils 0.0 Sodium 137.0 Potassium 3.8 Chloride 106 Carbon Dioxide 22 Anion Gap 9 BUN 21 H Creatinine 1.34 H Est GFR ( Amer) 50 L Est GFR (Non-Af Amer) 41 L Glucose 97 Calcium 8.8 08/29/17 04:15 Creatine Kinase 24 L Impressions: Lumbar Spine X-Ray 08/28/17 14:10 IMPRESSION: Acute upper endplate L1 compression deformity with 25% loss of height Hand X-Ray 08/28/17 14:11 IMPRESSION: NEGATIVE STUDY OF THE LEFT HAND. NO RADIOGRAPHIC EVIDENCE OF ACUTE INJURY. Chest X-Ray 08/28/17 16:09 IMPRESSION: No acute disease. . Assessment & Plan - Diagnosis (1) Anemia Qualifiers: Anemia type: unspecified type Qualified Code(s): D64.9 - Anemia, unspecified Is this a current diagnosis for this admission?: Yes Plan: hgb 8.3 after hydration, no active bleeding apparent. Will chk hgb again tomorrow. Chk Fe studies. (2) Bipolar 1 disorder Is this a current diagnosis for this admission?: Yes Plan: cont home meds (3) Compression fracture of lumbar vertebra Qualifiers: Encounter type: initial encounter Lumbar vertebra fracture level: L1 Fracture type: closed Qualified Code(s): S32.010A - Wedge compression fracture of first lumbar vertebra, initial encounter for closed fracture Is this a current diagnosis for this admission?: Yes Plan: no pain on my eval, no med changes made (4) Hypotension Qualifiers: Hypotension type: unspecified hypotension type Qualified Code(s): I95.9 - Hypotension, unspecified Is this a current diagnosis for this admission?: Yes Plan: much improved, will order 2 more liters of LR and follow BP. (5) Orthostatic hypotension Is this a current diagnosis for this admission?: Yes Plan: improved with fluid hydration, cont IV LR for 2 more L, abilify added for reduced risk of hypotension (6) Prerenal azotemia Is this a current diagnosis for this admission?: Yes Plan: improved, cont IV fluid and rechk chem panel in the am (7) Syncope and collapse Is this a current diagnosis for this admission?: Yes Plan: fall precautions, likely realted to hypotension, monitor for other etiology but unlikely as pt is feeling back to normal with improved BP - Time Time Spent with patient: 25-34 minutes Anticipated discharge: Home with Homehealth Within: within 24 hours - Inpatient Certification Based on my medical assessment, after consideration of the patient's comorbidities, presenting symptoms, or acuity I expect that the services needed warrant INPATIENT care.: Yes I certify that my determination is in accordance with my understanding of Medicare's requirements for reasonable and necessary INPATIENT services [42 CFR 412.3e].: Yes Medical Necessity: Need Close Monitoring Due to Risk of Patient Decompensation, Need For IV Fluids, Need For Continuous Telemetry Monitoring, Risk of Complication if Not Cared For in Hospital Post Hospital Care: 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
[2017-08-29] MEDS ORDERED: POTASSIUM CHLORIDE 8 MEQ PO SCH (18:00)
[2017-08-29 18:46] LABS: HEMATOCRIT 23.8 % (36.0-47.0); HEMOGLOBIN 8.2 g/dL (12.0-15.5); MEAN CORPUSCULAR HEMOGLOBIN 29.2 pg (27.0-33.4); MEAN CORPUSCULAR HGB CONC 34.5 g/dL (32.0-36.0); MEAN CORPUSCULAR VOLUME 85 fl (80-97); PLATELET COUNT 330 10^3/uL (150-450); RED BLOOD COUNT 2.81 10^6/uL (3.72-5.28); RED CELL DISTRIBUTION WIDTH 15.5 % (11.5-14.0); WHITE BLOOD COUNT 5.6 10^3/uL (4.0-10.5)
[2017-08-29 19:09] LABS: ANION GAP 10 (5-19); BLOOD UREA NITROGEN 16 mg/dL (7-20); CALCIUM 9.2 mg/dL (8.4-10.2); CARBON DIOXIDE 21 mmol/L (22-30); CHLORIDE 104 mmol/L (98-107); GLUCOSE 104 mg/dL (75-110); POTASSIUM 3.6 mmol/L (3.6-5.0); SODIUM 135.3 mmol/L (137-145)
[2017-08-29] MEDS: POTASSIUM CHLORIDE 10 MEQ TABLET.SA PO SCH (21:41)
[2017-08-29] MEDS: LEVETIRACETAM 500 MG TABLET PO SCH (21:41)
[2017-08-29] MEDS: AMITRIPTYLINE HCL 25 MG TABLET PO SCH (21:41)
[2017-08-30 05:38] LABS: ABSOLUTE RETICS # 0.044 10^6/uL (0.028-0.122); RETICULOCYTE COUNT (AUTO) 1.78 % (0.66-2.85)
[2017-08-30] MEDS: LEVOTHYROXINE SODIUM 0.05 MG TABLET PO SCH (05:42)
[2017-08-30] MEDS: HEPARIN SOD (PORCINE) 5,000 UNIT/ML 1 ML SYRINGE SUBCUT SCH ×3 (05:42→21:46)
[2017-08-30] MEDS: LANSOPRAZOLE 30 MG TAB.RAP.DR PO SCH (05:42)
[2017-08-30 05:57] LABS: IRON(TIBC) 27.1 ug/dL (37-170)
[2017-08-30 06:56] LABS: FOLATE 6.74 ng/mL (>2.76)
[2017-08-30] MEDS ORDERED: FUROSEMIDE 40 MG TABLET PO SCH (08:00)
[2017-08-30] MEDS: POTASSIUM CHLORIDE 10 MEQ TABLET.SA PO SCH ×2 (09:30→21:46)
[2017-08-30] MEDS: LEVETIRACETAM 500 MG TABLET PO SCH ×2 (09:30→21:43)
[2017-08-30] MEDS: DULOXETINE HCL 30 MG CAPSULE.DR PO SCH (09:30)
[2017-08-30] MEDS: BUSPIRONE HCL 10 MG TABLET PO SCH (09:30)
[2017-08-30] MEDS: DOCUSATE SODIUM 100 MG CAPSULE PO SCH ×2 (09:30→17:14)
--- NOTE | 2017-08-30 14:01 | PDOC PROGRESS REPORT ---
Subjective Progress Note for:: 08/30/17 Subjective:: Doing better today. Still feels lightheaded at times however much improved since admission. Denies fevers, chills, CP,SOB. States that she wants to get better so she can get home and take care of her family. Reason For Visit: HYPOTENSION SYNCOPE BIPOLAR Physical Exam Vital Signs: Temp Pulse Resp BP Pulse Ox 98.3 F 96 16 96/48 L 87 L 08/30/17 11:58 08/30/17 12:02 08/30/17 12:02 08/30/17 11:58 08/30/17 12:08 Intake & Output 08/29/17 08/30/17 08/31/17 06:59 06:59 06:59 Intake Total 1244 2912 954 Output Total 0 Balance 1244 2912 954 Weight 0 g 63.4 kg General appearance: PRESENT: no acute distress, well-developed, well-nourished Head exam: PRESENT: atraumatic, normocephalic Mouth exam: PRESENT: moist Respiratory exam: PRESENT: prolonged expiratory phas, symmetrical, unlabored Cardiovascular exam: PRESENT: RRR GI/Abdominal exam: PRESENT: soft. ABSENT: tenderness Neurological exam: PRESENT: alert, awake, CN II-XII grossly intact Psychiatric exam: ABSENT: agitated, anxious Results Laboratory Results: 08/29/17 18:25 08/29/17 18:25 08/29/17 08/29/17 08/29/17 04:15 18:25 18:25 WBC 5.6 RBC 2.81 L Hgb 8.2 L Hct 23.8 L MCV 85 MCH 29.2 MCHC 34.5 RDW 15.5 H Plt Count 330 Retic Count (auto) Absolute Retic Sodium 135.3 L Potassium 3.6 Chloride 104 Carbon Dioxide 21 L Anion Gap 10 BUN 16 Creatinine 1.12 Est GFR ( Amer) > 60 Est GFR (Non-Af Amer) 51 L Glucose 104 Calcium 9.2 Iron TIBC % Saturation Ferritin Vitamin B12 Folate Free T4 1.73 08/30/17 08/30/17 04:36 04:36 WBC RBC Hgb Hct MCV MCH MCHC RDW Plt Count Retic Count (auto) 1.78 Absolute Retic 0.044 Sodium Potassium Chloride Carbon Dioxide Anion Gap BUN Creatinine Est GFR ( Amer) Est GFR (Non-Af Amer) Glucose Calcium Iron 27.1 L TIBC 305 % Saturation 9 Ferritin 80.90 Vitamin B12 311.0 Folate 6.74 Free T4 08/29/17 04:15 Creatine Kinase 24 L Impressions: Lumbar Spine X-Ray 08/28/17 14:10 IMPRESSION: Acute upper endplate L1 compression deformity with 25% loss of height Hand X-Ray 08/28/17 14:11 IMPRESSION: NEGATIVE STUDY OF THE LEFT HAND. NO RADIOGRAPHIC EVIDENCE OF ACUTE INJURY. Chest X-Ray 08/28/17 16:09 IMPRESSION: No acute disease. . Assessment & Plan - Diagnosis (1) Anemia Qualifiers: Anemia type: unspecified type Qualified Code(s): D64.9 - Anemia, unspecified Is this a current diagnosis for this admission?: Yes Plan: Hg 8.2 on 08/30. Remains stable. Iron panel reviewed and no evidence of JAZMÍN. No active blood loss. Continue to monitor. (2) Bipolar 1 disorder Is this a current diagnosis for this admission?: Yes Plan: On multiple home medications including Elavil 25mg, Abilify 5mg, Buspar 10mg, Cymbalta 30mg - Has previously been followed as psychiatry as outpatient - Encouraged to make appt with provider now that she is no longer in alf - Motivated to take medications. (3) Orthostatic hypotension Is this a current diagnosis for this admission?: Yes Plan: Blood pressures have been soft (Systolics in 80-90s) - Will re-check vitals (orthostatics) - Encouraged PO - Not on BP medications - Holding Lasix today. (4) Prerenal azotemia Is this a current diagnosis for this admission?: Yes Plan: Cr 1.12, improving - Encourage PO intake (5) Syncope and collapse Is this a current diagnosis for this admission?: Yes Plan: Improved - Time Time Spent with patient: Less than 15 minutes Anticipated discharge: Home Within: within 24 hours
[2017-08-30 18:38] LABS: ANION GAP 5 (5-19); BLOOD UREA NITROGEN 11 mg/dL (7-20); CALCIUM 9.6 mg/dL (8.4-10.2); CARBON DIOXIDE 23 mmol/L (22-30); CHLORIDE 103 mmol/L (98-107); GLUCOSE 77 mg/dL (75-110); SODIUM 131.1 mmol/L (137-145)
[2017-08-30] MEDS: ARIPIPRAZOLE 5 MG TABLET PO SCH (21:43)
[2017-08-30] MEDS: AMITRIPTYLINE HCL 25 MG TABLET PO SCH (21:46)
[2017-08-31] MEDS: LEVOTHYROXINE SODIUM 0.05 MG TABLET PO SCH (05:12)
[2017-08-31] MEDS: LANSOPRAZOLE 30 MG TAB.RAP.DR PO SCH (05:12)
[2017-08-31] MEDS: HEPARIN SOD (PORCINE) 5,000 UNIT/ML 1 ML SYRINGE SUBCUT SCH ×2 (05:13→13:42)
[2017-08-31] MEDS ORDERED: FUROSEMIDE 40 MG TABLET PO SCH (08:00)
[2017-08-31] MEDS: DOCUSATE SODIUM 100 MG CAPSULE PO SCH (09:01)
[2017-08-31] MEDS: BUSPIRONE HCL 10 MG TABLET PO SCH (09:01)
[2017-08-31] MEDS: POTASSIUM CHLORIDE 10 MEQ TABLET.SA PO SCH (09:02)
[2017-08-31] MEDS: DULOXETINE HCL 30 MG CAPSULE.DR PO SCH (09:06)
[2017-08-31] MEDS: LEVETIRACETAM 500 MG TABLET PO SCH (09:06)
[2017-08-31 12:33] VITALS: BP 107/49
--- NOTE | 2017-08-31 18:21 | PDOC DISCHARGE SUMMARY ---
General - Admit/Disc Date/PCP Admission Date/Primary Care Provider: 08/28/17 16:37 JASMINE DEY [facility] Discharge Date: 08/31/17 - Discharge Diagnosis (1) Anemia Is this a current diagnosis for this admission?: Yes Summary: Hg stable at time of discharge around low 8s. Iron panel reviewed and no evidence of JAZMÍN. No active blood loss - Likely anemia of chronic disease (2) Bipolar 1 disorder Is this a current diagnosis for this admission?: Yes Summary: During admission was on multiple home medications including Elavil 25mg, Abilify 5mg, Buspar 10mg, Cymbalta 30mg. Unclear if these were all active or not. Outpatient management - 14 day scripts given for the following medications: Abilify 5mg, Buspar 10mg, Cymbalta 30mg. I did NOT continue Elavil or Ambien. - Strongly advised to follow up with her psychiatrist (Jasmine Butts) as outpatient - Motivated to take medications as prescribed. COunseled on importance of close drug monitoring to avoid polypharmacy a (3) Orthostatic hypotension Is this a current diagnosis for this admission?: Yes Summary: Blood pressures have been soft (Systolics in 80-90s) this admission. Orthostatics negative this admission Outpatient plan - Encouraged good - Not on BP medications. Did not start at discharge - Decreased Lasix from 40mg to 20mg. Follow up with PCP to review and adjust medications as needed (4) Prerenal azotemia Is this a current diagnosis for this admission?: Yes Summary: Improved with IVF. At baseline (5) Syncope and collapse Is this a current diagnosis for this admission?: Yes - Additional Information Resuscitation Status: Full Code Discharge Diet: As Tolerated Discharge Activity: Activity As Tolerated, Balance Activity w/Rest Prescriptions: Aripiprazole [Abilify 5 mg Tablet] 10 mg PO QHS 14 Days #14 tablet Buspirone HCl [Buspar 15 mg Tablet] 15 mg PO DAILY 14 Days #14 tablet Duloxetine HCl [Cymbalta] 60 mg PO DAILY 14 Days #14 capsule. Furosemide [Lasix 20 mg Tablet] 20 mg PO QAM #30 tablet Levetiracetam [Keppra 500 mg Tablet] 500 mg PO Q12 14 Days #14 tablet Levothyroxine Sodium [Synthroid 0.075 mg Tablet] 0.075 mg PO Q6AM 30 Days #30 tablet Home Medications: Amitriptyline HCl [Elavil 25 mg Tablet] 25 mg PO QHS 08/28/17 Pantoprazole Sodium [Protonix] 40 mg PO DAILY 08/28/17 Aripiprazole [Abilify 5 mg Tablet] 10 mg PO QHS 14 Days #14 tablet 08/31/17 Buspirone HCl [Buspar 15 mg Tablet] 15 mg PO DAILY 14 Days #14 tablet 08/31/17 Duloxetine HCl [Cymbalta] 60 mg PO DAILY 14 Days #14 capsule. 08/31/17 Furosemide [Lasix 20 mg Tablet] 20 mg PO QAM #30 tablet 08/31/17 Levetiracetam [Keppra 500 mg Tablet] 500 mg PO Q12 14 Days #14 tablet 08/31/17 Levothyroxine Sodium [Synthroid 0.075 mg Tablet] 0.075 mg PO Q6AM 30 Days #30 tablet 08/31/17 History of Present Illness Patient complains of: dizziness History of Present Illness: MYLENE ANGLIN is a 52 year old female with past medical history of hypothyroidism, COPD PTSD, bipolar 1. Patient presents in the custody of state following a syncopal episode prior to a meal. Patient is a very poor historian and manic subsequent history obtained by the record. Patient syncopized prior to a meal she denies prior symptoms, there was no limb shaking or incontinence. She is unclear of current medications as she is incarcerated for several weeks. In the emergency room she is found to have an L1 fracture, prerenal azotemia, orthostatic hypotension of 70/50 and bradycardia, she receives several liters of normal saline and is referred to the hospitalist for admission. She admittedly feels much better. Hospital Course Hospital Course: Per above. Physical Exam Vital Signs: Temp Pulse Resp BP Pulse Ox 98.7 F 83 12 107/49 L 99 08/31/17 12:33 08/31/17 12:33 08/31/17 12:33 08/31/17 12:33 08/31/17 12:33 Intake & Output 08/30/17 08/31/17 09/01/17 06:59 06:59 06:59 Intake Total 2912 2734 280 Output Total 0 0 Balance 2912 2734 280 Weight 63.4 kg 63.5 kg General appearance: PRESENT: no acute distress, other - Pleasant Head exam: PRESENT: atraumatic, normocephalic Mouth exam: PRESENT: moist Respiratory exam: PRESENT: unlabored Cardiovascular exam: PRESENT: RRR. ABSENT: tachycardia GI/Abdominal exam: PRESENT: soft. ABSENT: distended, tenderness Musculoskeletal exam: PRESENT: full ROM Neurological exam: PRESENT: alert, awake, oriented to person, oriented to place , oriented to time, CN II-XII grossly intact Psychiatric exam: ABSENT: agitated, anxious Skin exam: PRESENT: dry Results Laboratory Results: 08/29/17 18:25 08/30/17 18:00 08/30/17 18:00 Sodium 131.1 L Potassium 4.0 Chloride 103 Carbon Dioxide 23 Anion Gap 5 BUN 11 Creatinine 0.96 Est GFR ( Amer) > 60 Est GFR (Non-Af Amer) > 60 Glucose 77 Calcium 9.6 08/29/17 04:15 Creatine Kinase 24 L Impressions: Lumbar Spine X-Ray 08/28/17 14:10 IMPRESSION: Acute upper endplate L1 compression deformity with 25% loss of height Hand X-Ray 08/28/17 14:11 IMPRESSION: NEGATIVE STUDY OF THE LEFT HAND. NO RADIOGRAPHIC EVIDENCE OF ACUTE INJURY. Chest X-Ray 08/28/17 16:09 IMPRESSION: No acute disease. .
== END 2017-08-31 14:27 | disposition home or self-care (01) | DRG 312 ==
LOC: ER 13:12 → EH 16:37 → 3N 23:39
PROVIDERS: ADMIT Emergency Medicine; ATTEND Emergency Medicine
PROC: 3E0234Z Introduction of Serum, Toxoid and Vaccine into Muscle, Percutaneous Approach (ICD-10-PCS; principal; 2017-08-31)
DX: I95.1 Orthostatic hypotension (principal); S32.010A Wedge compression fracture of first lumbar vertebra, initial encounter for closed fracture; D64.9 Anemia, unspecified; R55 Syncope and collapse; E03.9 Hypothyroidism, unspecified; F43.10 Post-traumatic stress disorder, unspecified; F31.9 Bipolar disorder, unspecified; I10 Essential (primary) hypertension; J44.9 Chronic obstructive pulmonary disease, unspecified; K21.9 Gastro-esophageal reflux disease without esophagitis; M06.9 Rheumatoid arthritis, unspecified; M79.7 Fibromyalgia; Z90.710 Acquired absence of both cervix and uterus; Z96.642 Presence of left artificial hip joint; R00.1 Bradycardia, unspecified; Z85.820 Personal history of malignant melanoma of skin; Z87.891 Personal history of nicotine dependence; Z82.3 Family history of stroke; Z82.61 Family history of arthritis; Z80.9 Family history of malignant neoplasm, unspecified; Z82.49 Family history of ischemic heart disease and other diseases of the circulatory system; R79.89 Other specified abnormal findings of blood chemistry; E86.0 Dehydration; S60.512A Abrasion of left hand, initial encounter; W18.30XA Fall on same level, unspecified, initial encounter; Y92.89 Other specified places as the place of occurrence of the external cause; S30.0XXA Contusion of lower back and pelvis, initial encounter; Z23 Encounter for immunization
CPT/HCPCS: 36415; 71045; 72110; 80048; 80053; 80307; 81001; 82272; 82550; 82553; 82607; 82728; 82746; 83540; 83550; 84439; 84443; 84466; 84484; 85025; 85027; 85045; 86850; 86900; 86901; 90471; 90686; 90715; 93005; 93010; 96360; 99291; J1644; J1885; J3490; J7030

== ENCOUNTER → 2018-07-10 | Outpatient (CLI) | payer MEDICARE, MEDICAID ==
--- NOTE | 2018-07-10 10:42 | RADIOLOGY REPORT (SQ) ---
EXAM DESCRIPTION: BARIUM SWALLOW ESOPHAGUS COMPLETED DATE/TIME: 07/10/2018 10:01 am REASON FOR STUDY: DYSPHAGIA (R13.10), LPR (K21.9) R13.10 DYSPHAGIA, UNSPECIFIED COMPARISON: None. TECHNIQUE: Under fluoroscopic guidance, patient ingested effervescent granules followed by thick and thin barium. Fluoroscopic spot images and routine radiographic images acquired and stored on PACS. 12 MM BARIUM TABLET GIVEN: Yes 12 mm barium tablet paused in the distal esophagus, above the small Schatzki's ring and hiatal hernia for 5 minutes. This reproduced the patient's symptoms. LIMITATIONS: None. FLUOROSCOPY TIME: FLUORO TIME: 2.8 minutes 6 series of digital images saved to PACS. FINDINGS: NEUROMUSCULAR COORDINATION OF SWALLOW: Normal. No aspiration. ESOPHAGEAL MOTILITY: Limited peristalsis, decreased motility ESOPHAGEAL MUCOSA: Normal mucosa without masses or ulceration. GASTRO-ESOPHAGEAL JUNCTION: Small to moderate size hiatal hernia with Schatzki's ring. Schatzki's ri ng impeded passage of the barium tablet for 5 minutes, and reproduce the patient's pain. Mild interm ittent gastroesophageal reflux from the hiatal hernia into the distal esophagus throughout the study NON-GI TRACT STRUCTURES: Surgical clips in the right neck post thyroid surgery OTHER: No other significant finding. IMPRESSION: Small to moderate size hiatal hernia with Schatzki's ring which impeded passage of the b arium tablet and reproduced the patient's symptoms Mild intermittent gastroesophageal reflux from the hiatal hernia into the distal esophagus throughout the study COMMENT: Quality ID 145: Final reports for procedures using fluoroscopy that document radiation exp osure indices, or exposure time and number of fluorographic images (if radiation exposure indices are not available) TECHNICAL DOCUMENTATION: JOB ID: [id number] [employer]- All Rights Reserved Reading location - IP/workstation name: [email or web address]
== END ==
LOC: RAD 09:15
PROVIDERS: ATTEND Otolaryngology
DX: K21.9 Gastro-esophageal reflux disease without esophagitis (principal); R13.10 Dysphagia, unspecified
CPT/HCPCS: 74220

== ENCOUNTER → 2019-09-08 | Outpatient (CLI) | payer MEDICARE, MEDICAID | LOC: LAB 10:53 | PROVIDERS: ATTEND Specialist | DX: M54.12 Radiculopathy, cervical region (principal) | CPT/HCPCS: 36415 ==

== ENCOUNTER 2020-06-30 14:51 | Inpatient (IN) | payer MEDICARE, MEDICAID ==
[2020-06-30] MEDS ORDERED: ACETAMINOPHEN 325 MG TABLET PO ONE (15:27)
--- NOTE | 2020-06-30 15:29 | ER Document Report ---
ED Medical Screen (RME) - General Chief Complaint: Altered Mental Status Stated Complaint: ALTERED MENTAL STATUS Time Seen by Provider: 06/30/20 15:19 Primary Care Provider: SONYA PANTOJA MD [Primary Care Provider] - Follow up as needed Mode of Arrival: Wheelchair Information source: Patient, Relative Notes: 55-year-old female presented to ED for increased fatigue increased thirst decreased orientation with more more forgetfulness. Daughter states that her mother is older because she is 56 and she thought it was her normal forgetfulness on Friday. Daughter states that by Friday she realized something was not quite right but she was going to stay with a friend on Friday who was recently diagnosed with cancer. She states on that the friend had to go for PET scan and they asked her where she can go with them and she told him yes and then was back in the bed asleep when they were ready to go so they left her in the bed. When they came home the patient was more confused with one she wanted when she was off and she was in [place] so the daughter told him to bring her back to home and that she try to take her to her primary care because she had a lot of medicines that were due to be refilled but the primary care told her she needed to come to the emergency room due to her increasing confusion. At the doctor's office the patient's temperature was 100.7. Went to the vital signs were done the temperature was not afebrile but when I rechecked her temperature it is 100.7. Her blood pressure is very low. I have started a septic work-up on her. I have greeted and performed a rapid initial assessment of this patient. A comprehensive ED assessment and evaluation of the patient, analysis of test results and completion of medical decision making process will be conducted by an additional ED providers. TRAVEL OUTSIDE OF THE [place] IN LAST 30 DAYS: No - Related Data Allergies/Adverse Reactions: No Known Allergies Allergy (Verified 07/07/17 15:23) Past Medical History - Past Medical History Cardiac Medical History: Reports: Hx Hypertension Denies: Hx Heart Attack Pulmonary Medical History: Reports: Hx COPD Denies: Hx Asthma, Hx Bronchitis, Hx Pneumonia Neurological Medical History: Reports: Hx Seizures Endocrine Medical History: Reports: Hx Graves' Disease, Hx Hypothyroidism Renal/ Medical History: Denies: Hx Peritoneal Dialysis Malignancy Medical History: Reports: Hx Skin Cancer - melanoma a couple of years ago GI Medical History: Reports: Hx Gastroesophageal Reflux Disease Musculoskeltal Medical History: Comment Only Hx Arthritis - RHEUMATOID, Reports Hx Fibromyalgia, Reports Hx Musculoskeletal Deformity, Reports Hx Musculoskeletal Trauma Psychiatric Medical History: Reports: Hx Anxiety, Hx Bipolar Disorder, Hx Depression, Hx Post Traumatic Stress Disorder Traumatic Medical History: Reports: Hx Fractures Past Surgical History: Reports: Hx Section - x1, Hx Hysterectomy, Hx Orthopedic Surgery - L hip replacement, Hx Thyroid Surgery - Immunizations Immunizations up to date: Yes Hx Diphtheria, Pertussis, Tetanus Vaccination: Yes Physical Exam - Vital signs Vitals: Temp Pulse Resp BP Pulse Ox 99.7 F 100 16 96/40 L 95 06/30/20 15:03 06/30/20 15:03 06/30/20 15:03 06/30/20 15:03 06/30/20 15:03 Course - Vital Signs Vital signs: Temp Pulse Resp BP Pulse Ox 99.7 F 100 16 96/40 L 95 06/30/20 15:03 06/30/20 15:03 06/30/20 15:03 06/30/20 15:03 06/30/20 15:03 Doctor's Discharge - Discharge Referrals: SONYA PANTOJA MD [Primary Care Provider] - Follow up as needed
[2020-06-30] MEDS: NORMAL SALINE 1000 ML 1,000 ML IV PRN ×2 (16:16→17:18)
[2020-06-30] MEDS ORDERED: NORMAL SALINE 500 ML IV ONE (16:19)
--- NOTE | 2020-06-30 16:34 | ER Document Report ---
ED Fever - General Chief Complaint: Fever Stated Complaint: ALTERED MENTAL STATUS Time Seen by Provider: 06/30/20 15:19 Mode of Arrival: Wheelchair TRAVEL OUTSIDE OF THE [place] IN LAST 30 DAYS: No - HPI Notes: Patient is a 55-year-old female who presents with fever and confusion. From reports, patient has been somewhat confused since Friday. She has been more fatigued and sleepy. Patient mentions that she has had dysuria for some time but has not been treated for it yet. She denies any headache or neck pain. No chest pain or shortness of breath. No cough. No abdominal pain, nausea, vomiting, or diarrhea. She went to the PCPs office today and her temperature was 100.7 and they recommended she go to the ED. Patient denies any Covid contacts. - Related Data Allergies/Adverse Reactions: No Known Allergies Allergy (Verified 07/07/17 15:23) Past Medical History - General Information source: Patient, Relative - Social History Smoking Status: Unknown if Ever Smoked Family History: Arthritis, CAD, CVA, Hyperlipidemia, Hypertension, Malignancy - Past Medical History Cardiac Medical History: Reports: Hx Hypertension Denies: Hx Heart Attack Pulmonary Medical History: Reports: Hx COPD Denies: Hx Asthma, Hx Bronchitis, Hx Pneumonia Neurological Medical History: Reports: Hx Seizures Endocrine Medical History: Reports: Hx Graves' Disease, Hx Hypothyroidism Renal/ Medical History: Denies: Hx Peritoneal Dialysis Malignancy Medical History: Reports: Hx Skin Cancer - melanoma a couple of years ago GI Medical History: Reports: Hx Gastroesophageal Reflux Disease Musculoskeletal Medical History: Comment Only Hx Arthritis - RHEUMATOID, Reports Hx Fibromyalgia, Reports Hx Musculoskeletal Deformity, Reports Hx Musculoskeletal Trauma Psychiatric Medical History: Reports: Hx Anxiety, Hx Bipolar Disorder, Hx Depression, Hx Post Traumatic Stress Disorder Traumatic Medical History: Reports: Hx Fractures Past Surgical History: Reports: Hx Section - x1, Hx Hysterectomy, Hx Orthopedic Surgery - L hip replacement, Hx Thyroid Surgery - Immunizations Immunizations up to date: Yes Hx Diphtheria, Pertussis, Tetanus Vaccination: Yes Review of Systems - Review of Systems Notes: CONSTITUTIONAL: Positive for fever and fatigue. SKIN: No rash. HENT: No congestion, ear pain, or sore throat. No neck pain. EYES: No recent vision problems or eye pain. ENDOCRINE: No thyroid problems. No polyuria or polydipsia. CARDIOVASCULAR: No chest pain or edema. RESPIRATORY: No cough, shortness of breath, congestion, or wheezing. GASTROINTESTINAL: No abdominal pain, nausea, vomiting, bloody stools or diarrhea. GENITOURINARY: Positive for dysuria. MUSCULOSKELETAL: No joint pain or swelling. NEUROLOGIC: No seizures. No headache, focal weakness or sensory changes. HEMATOLOGIC: No unusual bruising or bleeding. PSYCHIATRIC: No depression or anxiety. Physical Exam - Vital signs Vitals: Temp Pulse Resp BP Pulse Ox 99.7 F 100 16 96/40 L 95 06/30/20 15:03 06/30/20 15:03 06/30/20 15:03 06/30/20 15:03 06/30/20 15:03 - General General appearance: Appears well Notes: VITAL SIGNS: Within normal limits. GENERAL: No acute distress, non-toxic appearance. HEAD: Normal with no signs of head trauma. EYES: EOMI, conjunctiva normal, no discharge. EARS: Hearing grossly intact. NOSE: Normal. THROAT: Oropharynx is normal. NECK: Normal range of motion, no tenderness, supple, no lymphadenopathy, No adenopathy, no JVD. No meningismus. CHEST: Clear breath sounds bilaterally. No wheezes, rales, or rhonchi. CARDIAC: Regular rate and rhythm. VASCULAR: No Edema. ABDOMEN: Normal and soft with no tenderness MUSCULOSKELETAL: Good range of motion of all major joints. Extremities without clubbing, cyanosis or edema. NEUROLOGICAL: Alert and oriented x 3. No focal sensory or strength deficits. Speech normal. Follows commands appropriately. PSYCHIATRIC: Normal Affect, judgement and mood. SKIN: Normal appearance with no rashes or lesions. Course - Re-evaluation Re-evalutation: 06/30/20 19:41 Patient's urinalysis shows an infection. She does meet sepsis criteria. Patient does not have any headache or neck pain. She has full range of motion of her neck. I do not suspect meningitis. She was started on Rocephin and 30 cc/kg fluids. Patient's blood pressure is improved and is in the 110 systolic. Patient is now alert and oriented x3. She states she feels much better. She is sitting up and eating dinner. I discussed all results with the patient and her daughter. I told them about the KRISTI which is likely due to dehydration and the UTI. Patient will be admitted to the hospital. She and her daughter are in agreement to the plan. I discussed with the hospitalist for admission. 07/01/20 01:50 - Vital Signs Vital signs: Temp Pulse Resp BP Pulse Ox 98.2 F 91 18 115/53 L 100 06/30/20 22:47 06/30/20 22:47 06/30/20 22:47 06/30/20 22:47 06/30/20 22:47 - Laboratory Result Diagrams: 06/30/20 16:16 06/30/20 16:16 Laboratory results interpreted by me: 06/30/20 06/30/20 06/30/20 15:29 16:16 16:16 WBC 11.3 H Hgb 11.4 L Hct 34.1 L Lymph % (Auto) 5.3 L Absolute Neuts (auto) 9.8 H Seg Neutrophils % 86.7 H Sodium 131.6 L Chloride 97 L Carbon Dioxide 19 L BUN 41 H Creatinine 2.09 H Est GFR ( Amer) 30 L Est GFR (MDRD) Non-Af 24 L Glucose 125 H POC Glucose 131 H Direct Bilirubin 0.6 H AST 101 H ALT 39 H Alkaline Phosphatase 157 H Albumin 3.4 L TSH Urine Protein Urine Blood Urine Urobilinogen Ur Leukocyte Esterase 06/30/20 06/30/20 16:16 16:16 WBC Hgb Hct Lymph % (Auto) Absolute Neuts (auto) Seg Neutrophils % Sodium Chloride Carbon Dioxide BUN Creatinine Est GFR ( Amer) Est GFR (MDRD) Non-Af Glucose POC Glucose Direct Bilirubin AST ALT Alkaline Phosphatase Albumin TSH 0.33 L Urine Protein 100 H Urine Blood SMALL H Urine Urobilinogen 4.0 H Ur Leukocyte Esterase LARGE H - Diagnostic Test Radiology reviewed: Image reviewed, Reports reviewed - EKG Interpretation by Me EKG shows normal: Sinus rhythm Rate: Normal Rhythm: NSR [place]/QRS: LBBB When compared to previous EKG there are: Previous EKG unavailable Critical Care Note - Critical Care Note Total time excluding time spent on procedures (mins): 40 Comments: Upon my evaluation, this patient had a high probability of imminent or life- threatening deterioration due to sepsis, which required my direct attention, intervention, and personal management. I have personally provided 40 minutes of critical care time. Time includes review of laboratory data, radiology results, discussion with consultants, and monitoring for potential decompensation. Interventions were performed as documented above. Discharge - Discharge Clinical Impression: Acute kidney injury Fever Qualifiers: Fever type: unspecified Qualified Code(s): R50.9 - Fever, unspecified Urinary tract infection Qualifiers: Urinary tract infection type: site unspecified Hematuria presence: without hematuria Qualified Code(s): N39.0 - Urinary tract infection, site not specified Sepsis Qualifiers: Sepsis type: sepsis due to unspecified organism Sepsis acute organ dysfunction status: without acute organ dysfunction Qualified Code(s): A41.9 - Sepsis, u nspecified organism Condition: Stable Disposition: ADMITTED INPATIENT Admitting Provider: [facility]am[facility] Unit Admitted: Medical Floor
--- NOTE | 2020-06-30 16:59 | EKG REPORT ---
SEVERITY:- ABNORMAL ECG - SINUS RHYTHM LEFT BUNDLE BRANCH BLOCK : Confirmed by: Sanju Medina MD 30-Jun-2020 16:58:53
--- NOTE | 2020-06-30 17:01 | RADIOLOGY REPORT (SQ) ---
EXAM DESCRIPTION: CT HEAD WITHOUT IMAGES COMPLETED DATE/TIME: 06/30/2020 4:47 pm REASON FOR STUDY: Increasing confusion over the last 5 days COMPARISON: CT of the head without contrast from 06/14/2017. TECHNIQUE: Axial images acquired through the brain without intravenous contrast. Images reviewed wi th bone, brain and subdural windows. Additional sagittal and coronal reconstructions were generated. Images stored on PACS. All CT scanners at this facility use dose modulation, iterative reconstruction, and/or weight based d osing when appropriate to reduce radiation dose to as low as reasonably achievable (ALARA). [facility]: Dose Right [facility]: CareDose [facility]: Dose Right [facility]: Teradose 4D [facility]: Victrix RADIATION DOSE: CT Rad equipment meets quality standard of care and radiation dose reduction techniq ues were employed. CTDIvol: 53.2 mGy. DLP: 1017 mGy-cm. LIMITATIONS: None. FINDINGS: There is no acute intracranial hemorrhage, vascular territorial infarct, extra-axial fluid collection, mass effect or midline shift. The olsen-white matter differentiation is preserved. The caliber of the ventricles is concordant with degree of sulcation. There is no effacement of the cereb ral sulci or basal subarachnoid cisterns. There is mucoperiosteal thickening involving the left maxillary and sphenoid sinuses. The other para nasal sinuses are clear. The orbits and globes are intact. There is hyperostosis frontalis interna. There is no fracture of the calvarium. IMPRESSION: 1. No acute intracranial abnormality. 2. Mucoperiosteal thickening involving the left maxillary and sphenoid sinuses. Correlation with pa tient's symptomatology is recommended to exclude an acute sinusitis. EVIDENCE OF ACUTE STROKE: NO. COMMENT: Quality ID # [id number]: Final reports with documentation of one or more dose reduction techniques (e.g., Automated exposure control, adjustment of the mA and/or kV according to patient size, use of iterative reconstruction technique) TECHNICAL DOCUMENTATION: JOB ID: [id number] [employer]- All Rights Reserved Reading location - IP/workstation name: [email or web address]
[2020-06-30 17:09] LABS: ABSOLUTE LYMPHOCYTES (AUTO) 0.6 10^3/uL (0.5-4.7); ABSOLUTE MONOCYTES (AUTO) 0.9 10^3/uL (0.1-1.4); ABSOLUTE NEUT (AUTO) 9.8 10^3/uL (1.7-8.2); BASOPHILS % (AUTO) 0.1 % (0-2); EOSINOPHILS % (AUTO) 0.1 % (0-6); HEMATOCRIT 34.1 % (36.0-47.0); HEMOGLOBIN 11.4 g/dL (12.0-15.5); LYMPHOCYTES % (AUTO) 5.3 % (13-45); MEAN CORPUSCULAR HEMOGLOBIN 27.1 pg (27.0-33.4); MEAN CORPUSCULAR HGB CONC 33.3 g/dL (32.0-36.0); MEAN CORPUSCULAR VOLUME 82 fl (80-97); MONOCYTES % (AUTO) 7.8 % (3-13); PLATELET COUNT 195 10^3/uL (150-450); RED BLOOD COUNT 4.19 10^6/uL (3.72-5.28); RED CELL DISTRIBUTION WIDTH 13.8 % (11.5-14.0); SEGMENTED NEUTROPHILS % (AUTO) 86.7 % (42-78); TOTAL CELLS COUNTED % (AUTO) 100 %; WHITE BLOOD COUNT 11.3 10^3/uL (4.0-10.5)
[2020-06-30 17:11] LABS: PROTHROMBIN TIME 15.4 SEC (11.4-15.4)
[2020-06-30 17:19] LABS: APPEARANCE,URINE CLOUDY; BILIRUBIN,URINE NEGATIVE (NEGATIVE); GLUCOSE, URINE NEGATIVE (NEGATIVE); KETONES,URINE NEGATIVE (NEGATIVE); LEUKOCYTE ESTERASE,URINE LARGE (NEGATIVE); NITRITE,URINE NEGATIVE (NEGATIVE); PROTEIN,URINE 100 mg/dL (NEGATIVE); URINE SPECIFIC GRAVITY 1.014
[2020-06-30 17:20] LABS: COLOR,URINE YELLOW
[2020-06-30 17:24] LABS: VENOUS BLOOD BASE EXCESS -6.1 mmol/L; VENOUS BLOOD HCO3 20.1 mmol/L (20-32); VENOUS BLOOD PCO2 42.3 mmHg (35-63); VENOUS BLOOD PH 7.3 (7.30-7.42)
[2020-06-30] MEDS ORDERED: CEFTRIAXONE 1 GM/D5W RTU 1 GM/50 ML RTUPB IV ONE (17:29)
[2020-06-30 17:30] LABS: ALBUMIN 3.4 g/dL (3.5-5.0); ALKALINE PHOSPHATASE 157 U/L (38-126); ANION GAP 16 (5-19); ASPARTATE AMINO TRANSFERASE 101 U/L (14-36); BILIRUBIN,DIRECT 0.6 mg/dL (0.0-0.4); BILIRUBIN,TOTAL 0.8 mg/dL (0.2-1.3); BLOOD UREA NITROGEN 41 mg/dL (7-20); CALCIUM 8.9 mg/dL (8.4-10.2); CARBON DIOXIDE 19 mmol/L (22-30); CHLORIDE 97 mmol/L (98-107); GLUCOSE 125 mg/dL (75-110); POTASSIUM 3.9 mmol/L (3.6-5.0); TOTAL PROTEIN 6.6 g/dL (6.3-8.2)
[2020-06-30 17:46] LABS: FREE T4 (FREE THYROXINE) 1.89 ng/dL (0.78-2.19)
--- NOTE | 2020-06-30 17:51 | RADIOLOGY REPORT (SQ) ---
EXAM DESCRIPTION: CHEST 2 VIEWS IMAGES COMPLETED DATE/TIME: 06/30/2020 4:57 pm REASON FOR STUDY: Fever COMPARISON: 06/29/2017 EXAM PARAMETERS: NUMBER OF VIEWS: two views TECHNIQUE: Digital Frontal and Lateral radiographic views of the chest acquired. RADIATION DOSE: NA LIMITATIONS: none FINDINGS: LUNGS AND PLEURA: Limited subsegmental atelectasis in the left base. MEDIASTINUM AND HILAR STRUCTURES: No masses or contour abnormalities. HEART AND VASCULAR STRUCTURES: Heart normal size. No evidence for failure. BONES: No acute findings. HARDWARE: None in the chest. OTHER: No other significant finding. IMPRESSION: Limited atelectasis. TECHNICAL DOCUMENTATION: JOB ID: [id number] 2010 [employer]- All Rights Reserved Reading location - IP/workstation name: [email or web address]
[2020-06-30 18:00] LABS: THYROID STIMULATING HORMONE 0.33 uIU/mL (0.47-4.68)
[2020-06-30] MEDS ORDERED: IPRATROPIUM/ALBUTEROL 0.5-2.5 MG/3 ML AMPUL NEB PRN (21:03)
[2020-06-30] MEDS ORDERED: ACETAMINOPHEN 325 MG TABLET PO PRN (21:03)
--- NOTE | 2020-06-30 21:20 | PDOC H&P ---
History of Present Illness Admission Date/PCP: SONYA PANTOJA MD Patient complains of: Altered mental status. Dysuria, frequency of urination History of Present Illness: MYLENE ANGLIN is a 55 year old female with a history of bipolar disorder, seizure disorder, GERD and hypothyroidism who presents with 1 week duration of fatigue, fever, chills, dysuria, increased frequency of urination. And her daughter reports that since yesterday she has not been herself and was altered from her baseline. On arrival patient was hypotensive and altered, she was gi regina IV fluid per sepsis protocol at the ED and was started on antibiotic after which she improved and became alert and oriented. She denies any nausea, vomiting, cough, shortness of breath, chest pain, palpitation, dizziness. She states that she has not started any new medication or does not take any [id number] or herbal medicines. She denies any abnormal body movements and she states that he has been many years since she had seizure-like activity. Past Medical History Cardiac Medical History: Reports: Hypertension Denies: Myocardial Infarction Pulmonary Medical History: Reports: Chronic Obstructive Pulmonary Disease (COPD) Denies: Asthma, Bronchitis, Pneumonia Neurological Medical History: Reports: Seizures Endocrine Medical History: Reports: Hypothyroidism Malignancy Medical History: Reports: Skin Cancer - melanoma a couple of years a go GI Medical History: Reports: Gastroesophageal Reflux Disease Musculoskeltal Medical History: Reports: Fibromyalgia Comment Only: Arthritis - RHEUMATOID Psychiatric Medical History: Reports: Bipolar Disorder, Depression, Post Traumatic Stress Disorder Hematology: Denies: Anemia Past Surgical History Past Surgical History: Reports: Section - x1, Hysterectomy, Orthopedic Surgery - L hip replacement Social History Information Source: Patient Lives with: Family Smoking Status: Former Smoker Frequency of Alcohol Use: None Hx Recreational Drug Use: No Drugs: Marijuana Hx Prescription Drug Abuse: No - Advance Directive Resuscitation Status: Full Code Family History Family History: Arthritis, CAD, CVA, Hyperlipidemia, Hypertension, Malignancy Parental Family History Reviewed: Yes Children Family History Reviewed: Yes Sibling(s) Family History Reviewed.: Yes Medication/Allergy Home Medications: Amitriptyline HCl [Elavil 25 mg Tablet] 25 mg PO QHS 08/28/17 Pantoprazole Sodium [Protonix] 40 mg PO DAILY 08/28/17 Aripiprazole [Abilify 5 mg Tablet] 10 mg PO QHS 14 Days #14 tablet 08/31/17 Buspirone HCl [Buspar 15 mg Tablet] 15 mg PO DAILY 14 Days #14 tablet 08/31/17 Duloxetine HCl [Cymbalta] 60 mg PO DAILY 14 Days #14 capsule. 08/31/17 Furosemide [Lasix 20 mg Tablet] 20 mg PO QAM #30 tablet 08/31/17 Levetiracetam [Keppra 500 mg Tablet] 500 mg PO Q12 14 Days #14 tablet 08/31/17 Levothyroxine Sodium [Synthroid 0.075 mg Tablet] 0.075 mg PO Q6AM 30 Days #30 tablet 08/31/17 Allergies/Adverse Reactions: No Known Allergies Allergy (Verified 07/07/17 15:23) Review of Systems Constitutional: PRESENT: as per HPI, chills, fever(s). ABSENT: fatigue, headache(s), night sweats, weight gain, weight loss Eyes: ABSENT: visual disturbances Ears: ABSENT: hearing changes Nose, Mouth, and Throat: ABSENT: headache(s), mouth pain, sore throat Cardiovascular: ABSENT: chest pain, dyspnea on exertion, edema, orthropnea, palpitations Respiratory: ABSENT: cough, hemoptysis Gastrointestinal: ABSENT: abdominal pain, constipation, diarrhea, hematemesis, hematochezia, nausea, vomiting Genitourinary: PRESENT: as per HPI Musculoskeletal: ABSENT: joint swelling Integumentary: ABSENT: rash, wounds Neurological: ABSENT: abnormal gait, abnormal speech, confusion, dizziness, focal weakness, syncope Endocrine: ABSENT: cold intolerance, heat intolerance, polydipsia, polyuria Hematologic/Lymphatic: ABSENT: easy bleeding, easy bruising Physical Exam Vital Signs: Temp Pulse Resp BP Pulse Ox 98.6 F 99 23 H 106/49 L 100 06/30/20 18:11 06/30/20 16:47 06/30/20 20:19 06/30/20 20:19 06/30/20 20:19 Intake & Output 06/29/20 06/30/20 07/01/20 06:59 06:59 06:59 Intake Total 2550 Balance 2550 Weight 83.8 kg Additional comments: GENERAL APPEARANCE: Alert and oriented x3, in no acute distress HEENT: Normocephalic and atraumatic. No scleral icterus. Moist oral mucosa NECK: Supple. No lymphadenopathy or tenderness. No carotid bruit. No JVD CHEST: Symmetric. Nontender to palpation. LUNGS: Clear with good air entry bilaterally. No wheezing or crackles HEART: Regular rate and rhythm with normal S1 and S2. No murmurs, gallops, or rubs. ABDOMEN: Flat, soft, active bowel sounds, has suprapubic tenderness but no guarding or rigidity. No organomegaly detected. Has CVA tenderness EXTREMITIES: No cyanosis, clubbing, or edema. MUSCULOSKELETAL: No deformity, atrophy or swelling noted PSYCHIATRIC: Recent and remote memory is intact. Appropriate mood and affect. SKIN: Warm, dry, and well perfused. No lesions or rashes are noted. NEUROLOGIC: No focal sensory or motor deficits are noted. Results Laboratory Results: 06/30/20 16:16 06/30/20 16:16 06/30/20 06/30/20 06/30/20 16:16 16:16 16:16 WBC 11.3 H RBC 4.19 Hgb 11.4 L Hct 34.1 L MCV 82 MCH 27.1 MCHC 33.3 RDW 13.8 Plt Count 195 Seg Neutrophils % 86.7 H VBG pH VBG pCO2 VBG HCO3 VBG Base Excess Sodium 131.6 L Potassium 3.9 Chloride 97 L Carbon Dioxide 19 L Anion Gap 16 BUN 41 H Creatinine 2.09 H Est GFR ( Amer) 30 L Glucose 125 H Lactic Acid Calcium 8.9 Total Bilirubin 0.8 AST 101 H Alkaline Phosphatase 157 H Total Protein 6.6 Albumin 3.4 L TSH 0.33 L Free T4 1.89 Urine Color Urine Appearance Urine pH Ur Specific [place] Urine Protein Urine Glucose (UA) Urine Ketones Urine Blood Urine Nitrite Ur Leukocyte Esterase Urine WBC (Auto) Urine RBC (Auto) 06/30/20 06/30/20 06/30/20 16:16 16:45 16:45 WBC RBC Hgb Hct MCV MCH MCHC RDW Plt Count Seg Neutrophils % VBG pH 7.30 VBG pCO2 42.3 VBG HCO3 20.1 VBG Base Excess -6.1 Sodium Potassium Chloride Carbon Dioxide Anion Gap BUN Creatinine Est GFR ( Amer) Glucose Lactic Acid 1.0 Calcium Total Bilirubin AST Alkaline Phosphatase Total Protein Albumin TSH Free T4 Urine Color YELLOW Urine Appearance CLOUDY Urine pH 5.0 Ur Specific [place] 1.014 Urine Protein 100 H Urine Glucose (UA) NEGATIVE Urine Ketones NEGATIVE Urine Blood SMALL H Urine Nitrite NEGATIVE Ur Leukocyte Esterase LARGE H Urine WBC (Auto) >182 Urine RBC (Auto) 5 06/30/20 17:35 WBC RBC Hgb Hct MCV MCH MCHC RDW Plt Count Seg Neutrophils % VBG pH VBG pCO2 VBG HCO3 VBG Base Excess Sodium Potassium Chloride Carbon Dioxide Anion Gap BUN Creatinine Est GFR ( Amer) Glucose Lactic Acid Cancelled Calcium Total Bilirubin AST Alkaline Phosphatase Total Protein Albumin TSH Free T4 Urine Color Urine Appearance Urine pH Ur Specific [place] Urine Protein Urine Glucose (UA) Urine Ketones Urine Blood Urine Nitrite Ur Leukocyte Esterase Urine WBC (Auto) Urine RBC (Auto) 06/30/20 16:16 Troponin I < 0.012 Impressions: Chest X-Ray 06/30/20 15:27 IMPRESSION: Limited atelectasis. Head CT 06/30/20 15:28 IMPRESSION: 1. No acute intracranial abnormality. 2. Mucoperiosteal thickening involving the left maxillary and sphenoid sinuses. Correlation with patient's symptomatology is recommended to exclude an acute sinusitis. EVIDENCE OF ACUTE STROKE: NO. Assessment and Plan - Diagnosis (1) Sepsis Qualifiers: Sepsis type: sepsis due to unspecified organism Sepsis acute organ dysfunction status: without acute organ dysfunction Qualified Code(s): A41.9 - Sepsis, unspecified organism Is this a current diagnosis for this admission?: Yes Plan: Patient presents with change in her mental status, hypotension and urinary symptoms UA was positive for leukocyte esterase and multiple WBCs per high-power field Has leukocytosis of 11.3k, lactic acid level was within the normal limit Meets sepsis criteria with a qSOFA score of 2/3 likely focus being urosepsis Patient showed significant improvement after a bolus of IV fluid and AMS [facility] ed Started on ceftriaxone Follow-up with urine and blood culture Continue IV hydration (2) Urinary tract infection Qualifiers: Urinary tract infection type: site unspecified Hematuria presence: without hematuria Qualified Code(s): N39.0 - Urinary tract infection, site not specified Is this a current diagnosis for this admission?: Yes Plan: Presentation concerning for urosepsis UA was positive for leukocyte esterase and > 182 WBC per high-power field Currently on ceftriaxone 1 g IV daily Follow-up with urine culture and adjust antibiotic accordingly (3) Acute kidney injury Is this a current diagnosis for this admission?: Yes Plan: BUN/creatinine 41/2.01, creatinine was 1.12 in 2018 We will continue IV hydration Renally dose medications and avoid nephrotoxic's Continue monitoring BMP (4) Hypotension Qualifiers: Hypotension type: unspecified hypotension type Qualified Code(s): I95.9 - Hypotension, unspecified Is this a current diagnosis for this admission?: Yes Plan: Patient was hypotensive on presentation at the ED Resolved after administration of bolus of IV fluid Closely monitor for any sign of septic shock Continue IV hydration (5) Hyponatremia Is this a current diagnosis for this admission?: Yes Plan: Serum sodium level was 131 Likely due to volume depletion Currently has been hydrated Continue monitoring BMP (6) Acute metabolic encephalopathy Is this a current diagnosis for this admission?: Yes Plan: Presents with altered mental status Multifactorial likely due to sepsis, acute kidney injury and volume depletion Has no neurologic deficit and denies any seizure-like activity Meningeal signs were negative CT head showed no acute intracranial abnormality Has resolved on admission Continue monitoring (7) Seizure disorder Is this a current diagnosis for this admission?: Yes Plan: Stable and has not had seizure in the past few years Continue Keppra (8) Bipolar disorder Is this a current diagnosis for this admission?: Yes Plan: Continue home medications (9) GERD (gastroesophageal reflux disease) Is this a current diagnosis for this admission?: Yes Plan: Symptoms well controlled, continue pantoprazole - Time Time Spent with patient: 35 or more minutes Total Critical Time (Minutes): 40 Medications reviewed and adjusted accordingly: Yes Anticipated Discharge Disposition: Home, Self Care Anticipated Discharge Timeframe: within 48 hours - Inpatient Certification Based on my medical assessment, after consideration of the patient's comorbidities, presenting symptoms, or acuity I expect that the services needed warrant INPATIENT care.: Yes I certify that my determination is in accordance with my understanding of Medicare's requirements for reasonable and necessary INPATIENT services [42 CFR 412.3e].: Yes Medical Necessity: Need Close Monitoring Due to Risk of Patient Decompensation, Need For IV Fluids, Need for IV Antibiotics, Risk of Complication if Not Cared For in Hospital Post Hospital Care: D/C or Transfer Summary
[2020-06-30] MEDS: RINGERS SOLUTION,LACTATED 1,000 ML IV PRN (23:05)
[2020-06-30] MEDS: HEPARIN SOD (PORCINE) 5,000 UNIT/ML 1 ML VIAL SUBCUT SCH (23:05)
[2020-06-30] MEDS: FAMOTIDINE 20 MG TABLET PO SCH (23:05)
[2020-06-30] MEDS: LEVETIRACETAM 500 MG TABLET PO SCH (23:05)
[2020-07-01 05:57] LABS: ABSOLUTE LYMPHOCYTES (AUTO) 0.6 10^3/uL (0.5-4.7); ABSOLUTE MONOCYTES (AUTO) 0.8 10^3/uL (0.1-1.4); ABSOLUTE NEUT (AUTO) 7.6 10^3/uL (1.7-8.2); BASOPHILS % (AUTO) 0.3 % (0-2); EOSINOPHILS % (AUTO) 0.2 % (0-6); HEMATOCRIT 29.8 % (36.0-47.0); LYMPHOCYTES % (AUTO) 6.2 % (13-45); MEAN CORPUSCULAR HEMOGLOBIN 27.5 pg (27.0-33.4); MEAN CORPUSCULAR HGB CONC 33.7 g/dL (32.0-36.0); MEAN CORPUSCULAR VOLUME 82 fl (80-97); MONOCYTES % (AUTO) 9.1 % (3-13); PLATELET COUNT 147 10^3/uL (150-450); RED BLOOD COUNT 3.65 10^6/uL (3.72-5.28); RED CELL DISTRIBUTION WIDTH 13.6 % (11.5-14.0); SEGMENTED NEUTROPHILS % (AUTO) 84.2 % (42-78); TOTAL CELLS COUNTED % (AUTO) 100 %
[2020-07-01] MEDS ORDERED: LEVOTHYROXINE SODIUM 0.075 MG TABLET PO SCH (06:00)
[2020-07-01] MEDS: RINGERS SOLUTION,LACTATED 1,000 ML IV PRN ×2 (06:21→12:56)
[2020-07-01 06:22] LABS: ANION GAP 8 (5-19); BLOOD UREA NITROGEN 36 mg/dL (7-20); CALCIUM 8.6 mg/dL (8.4-10.2); CARBON DIOXIDE 19 mmol/L (22-30); CHLORIDE 105 mmol/L (98-107); GLUCOSE 90 mg/dL (75-110)
[2020-07-01] MEDS: HEPARIN SOD (PORCINE) 5,000 UNIT/ML 1 ML VIAL SUBCUT SCH ×3 (06:22→21:28)
[2020-07-01] MEDS ORDERED: LEVOTHYROXINE SODIUM 0.075 MG TABLET ONE (06:31)
[2020-07-01] MEDS: FAMOTIDINE 20 MG TABLET PO SCH ×2 (09:06→21:27)
[2020-07-01] MEDS: LEVETIRACETAM 500 MG TABLET PO SCH ×2 (09:06→21:27)
--- NOTE | 2020-07-01 16:40 | PDOC PROGRESS REPORT ---
Subjective Date:: 07/01/20 Subjective:: MYLENE ANGLIN is a 55 year old female with a history of bipolar disorder, seizure disorder, hypertension, hypothyroidism, COPD, and GERD who was admitted 06/30/2020 with Sepsis secondary to UTI. Patient was seen on morning rounds. She is found resting in bed, comfortably, on room air. She was sleeping but woke easily when I said her name. She is alert and oriented x4. She does not recall most of yesterday afternoon or evening. She does reports several days prior of dysuria and increased urinary frequency. She cannot recall if she ran fevers. At present, she is feeling well and has no complaints. She specifically denies chest pain, palpitations, dyspnea, cough, abdominal pain, nausea vomiting and diarrhea. T-max 101.8/24 hours. She has no questions or concerns at this time. No concerns per nursing. Reason For Visit: SEPSIS,ACUTE METABOLIC ENCEPHALOPATHY,UTI,ACUTE Physical Exam Vital Signs: Temp Pulse Resp BP Pulse Ox 98.6 F 95 16 119/46 L 97 07/01/20 10:50 07/01/20 13:54 07/01/20 13:54 07/01/20 07:46 07/01/20 13:54 Intake & Output 06/30/20 07/01/20 07/02/20 06:59 06:59 06:59 Intake Total 4100 1227 Output Total 1100 1450 Balance 3000 -223 Weight 85.5 kg General appearance: PRESENT: no acute distress, cooperative, well-developed, well-nourished - overweight Head exam: PRESENT: atraumatic, normocephalic Eye exam: PRESENT: conjunctiva pink, EOMI, PERRLA. ABSENT: scleral icterus Mouth exam: PRESENT: moist, tongue midline Respiratory exam: PRESENT: clear to auscultation dre, symmetrical, unlabored, other - room air. ABSENT: rales, rhonchi, wheezes Cardiovascular exam: PRESENT: RRR. ABSENT: diastolic murmur, rubs, systolic murmur Pulses: PRESENT: normal dorsalis pedis pul Vascular exam: PRESENT: normal capillary refill GI/Abdominal exam: PRESENT: normal bowel sounds, soft. ABSENT: distended, guarding, mass, organolmegaly, rebound, tenderness Rectal exam: PRESENT: deferred Gentrourinary exam: PRESENT: indwelling catheter Extremities exam: PRESENT: full ROM. ABSENT: calf tenderness, clubbing, pedal edema Neurological exam: PRESENT: alert, awake, oriented to person, oriented to place, oriented to time, oriented to situation, CN II-XII grossly intact. ABSENT: motor sensory deficit Psychiatric exam: PRESENT: appropriate affect, normal mood. ABSENT: homicidal ideation, suicidal ideation Skin exam: PRESENT: dry, intact, warm. ABSENT: cyanosis, rash Results Laboratory Results: 07/01/20 05:23 07/01/20 05:23 06/30/20 06/30/20 06/30/20 16:16 16:16 16:16 WBC 11.3 H RBC 4.19 Hgb 11.4 L Hct 34.1 L MCV 82 MCH 27.1 MCHC 33.3 RDW 13.8 Plt Count 195 Seg Neutrophils % 86.7 H VBG pH VBG pCO2 VBG HCO3 VBG Base Excess Sodium 131.6 L Potassium 3.9 Chloride 97 L Carbon Dioxide 19 L Anion Gap 16 BUN 41 H Creatinine 2.09 H Est GFR ( Amer) 30 L Glucose 125 H Lactic Acid Calcium 8.9 Total Bilirubin 0.8 AST 101 H Alkaline Phosphatase 157 H Total Protein 6.6 Albumin 3.4 L TSH 0.33 L Free T4 1.89 Urine Color Urine Appearance Urine pH Ur Specific [employer] Urine Protein Urine Glucose (UA) Urine Ketones Urine Blood Urine Nitrite Ur Leukocyte Esterase Urine WBC (Auto) Urine RBC (Auto) 06/30/20 06/30/20 06/30/20 16:16 16:45 16:45 WBC RBC Hgb Hct MCV MCH MCHC RDW Plt Count Seg Neutrophils % VBG pH 7.30 VBG pCO2 42.3 VBG HCO3 20.1 VBG Base Excess -6.1 Sodium Potassium Chloride Carbon Dioxide Anion Gap BUN Creatinine Est GFR ( Amer) Glucose Lactic Acid 1.0 Calcium Total Bilirubin AST Alkaline Phosphatase Total Protein Albumin TSH Free T4 Urine Color YELLOW Urine Appearance CLOUDY Urine pH 5.0 Ur Specific [employer] 1.014 Urine Protein 100 H Urine Glucose (UA) NEGATIVE Urine Ketones NEGATIVE Urine Blood SMALL H Urine Nitrite NEGATIVE Ur Leukocyte Esterase LARGE H Urine WBC (Auto) >182 Urine RBC (Auto) 5 06/30/20 07/01/20 07/01/20 17:35 05:23 05:23 WBC 9.0 RBC 3.65 L Hgb 10.0 L Hct 29.8 L MCV 82 MCH 27.5 MCHC 33.7 RDW 13.6 Plt Count 147 L Seg Neutrophils % 84.2 H VBG pH VBG pCO2 VBG HCO3 VBG Base Excess Sodium 132.1 L Potassium 4.0 Chloride 105 Carbon Dioxide 19 L Anion Gap 8 BUN 36 H Creatinine 1.61 H Est GFR ( Amer) 40 L Glucose 90 Lactic Acid Cancelled Calcium 8.6 Total Bilirubin AST Alkaline Phosphatase Total Protein Albumin TSH Free T4 Urine Color Urine Appearance Urine pH Ur Specific [employer] Urine Protein Urine Glucose (UA) Urine Ketones Urine Blood Urine Nitrite Ur Leukocyte Esterase Urine WBC (Auto) Urine RBC (Auto) 06/30/20 16:16 Troponin I < 0.012 Impressions: Chest X-Ray 06/30/20 15:27 IMPRESSION: Limited atelectasis. Head CT 06/30/20 15:28 IMPRESSION: 1. No acute intracranial abnormality. 2. Mucoperiosteal thickening involving the left maxillary and sphenoid sinuses. Correlation with patient's symptomatology is recommended to exclude an acute sinusitis. EVIDENCE OF ACUTE STROKE: NO. Assessment and Plan - Diagnosis (1) Sepsis Qualifiers: Sepsis type: sepsis due to unspecified organism Sepsis acute organ dysfunction status: without acute organ dysfunction Qualified Code(s): A41.9 - Sepsis, unspecified organism Is this a current diagnosis for this admission?: Yes Plan: Improved; now A&Ox4, renal function improved, leukocytosis resolved. Remains febrile. Patient presents with change in her mental status, hypotension and urinary symptoms UA was positive for leukocyte esterase and multiple WBCs per high-power field Meets sepsis criteria with a qSOFA score of 2/3 likely focus being urosepsis Patient showed significant improvement after a bolus of IV fluid and AMS resolved Blood cultures (both sets) gram-negative rods Urine culture shows gram-negative rods. Patient is admitted to the medical floor. Continue on ceftriaxone Continue IV hydration (2) Bacteremia Is this a current diagnosis for this admission?: Yes Plan: Blood cultures (both sets) showed gram-negative rods. Urine culture with gram-negative rods. Continues on ceftriaxone. (3) Urinary tract infection Qualifiers: Urinary tract infection type: site unspecified Hematuria presence: without hematuria Qualified Code(s): N39.0 - Urinary tract infection, site not specified Is this a current diagnosis for this admission?: Yes Plan: Presentation concerning for urosepsis UA was positive for leukocyte esterase and > 182 WBC per high-power field Urine culture shows gram-negative rods. Currently on ceftriaxone 1 g IV daily Crooks removed. (4) Acute kidney injury Is this a current diagnosis for this admission?: Yes Plan: Improved; Cr 2.09->1.61 Prerenal secondary to sepsis, hypotension, and urinary tract infection. We will continue IV hydration Renally dose medications and avoid nephrotoxic's Continue monitoring BMP (5) Bipolar disorder Is this a current diagnosis for this admission?: Yes Plan: Continue home medications (6) GERD (gastroesophageal reflux disease) Is this a current diagnosis for this admission?: Yes Plan: Symptoms well controlled, continue pantoprazole (7) Hyponatremia Is this a current diagnosis for this admission?: Yes Plan: Mild; trending up. Na 131-> 132.1 Likely due to volume depletion Continue IVF Liberalize dietary sodium Continue monitoring BMP (8) Seizure disorder Is this a current diagnosis for this admission?: Yes Plan: Stable and has not had seizure in the past few years Continue Keppra (9) Hypotension Qualifiers: Hypotension type: unspecified hypotension type Qualified Code(s): I95.9 - Hypotension, unspecified Is this a current diagnosis for this admission?: Yes Plan: Resolved. Patient was hypotensive on presentation at the ED Resolved after administration of bolus of IV fluid (10) Acute metabolic encephalopathy Is this a current diagnosis for this admission?: Yes Plan: Resolved. However alert and oriented x4. Presents with altered mental status Multifactorial likely due to sepsis, acute kidney injury and volume depletion Has no neurologic deficit and denies any seizure-like activity Meningeal signs were negative CT head showed no acute intracranial abnormality Has resolved on admission Continue monitoring - Time Time Spent with patient: 25-34 minutes Medications reviewed and adjusted accordingly: Yes Anticipated Discharge Disposition: Home, Self Care Anticipated Discharge Timeframe: within 72 hours
[2020-07-01] MEDS: CEFTRIAXONE 1 GM/D5W RTU 1 GM/50 ML RTUPB IV SCH (17:11)
[2020-07-01] MEDS: OXYCODONE HCL IR 5 MG TABLET PO PRN (18:13)
[2020-07-01] MEDS: AMITRIPTYLINE HCL 50 MG TABLET PO SCH (21:27)
[2020-07-01] MEDS: ARIPIPRAZOLE 5 MG TABLET PO SCH (21:27)
[2020-07-01] MEDS ORDERED: ROSUVASTATIN CALCIUM 10 MG PO SCH (22:00)
[2020-07-02] MEDS: RINGERS SOLUTION,LACTATED 1,000 ML IV PRN ×2 (02:30→09:16)
[2020-07-02 04:54] LABS: HEMATOCRIT 28.6 % (36.0-47.0); HEMOGLOBIN 9.7 g/dL (12.0-15.5); MEAN CORPUSCULAR HGB CONC 33.9 g/dL (32.0-36.0); MEAN CORPUSCULAR VOLUME 83 fl (80-97); PLATELET COUNT 165 10^3/uL (150-450); RED BLOOD COUNT 3.47 10^6/uL (3.72-5.28); WHITE BLOOD COUNT 9.8 10^3/uL (4.0-10.5)
[2020-07-02 05:14] LABS: ANION GAP 8 (5-19); BLOOD UREA NITROGEN 22 mg/dL (7-20); CALCIUM 8.7 mg/dL (8.4-10.2); CARBON DIOXIDE 20 mmol/L (22-30); CHLORIDE 108 mmol/L (98-107); GLUCOSE 84 mg/dL (75-110); POTASSIUM 3.3 mmol/L (3.6-5.0)
[2020-07-02] MEDS: HEPARIN SOD (PORCINE) 5,000 UNIT/ML 1 ML VIAL SUBCUT SCH ×3 (05:24→21:45)
[2020-07-02] MEDS ORDERED: LEVOTHYROXINE SODIUM 0.112 MG TABLET ONE (06:31)
[2020-07-02] MEDS: LEVOTHYROXINE SODIUM 0.112 MG TABLET PO SCH (06:54)
[2020-07-02] MEDS ORDERED: POTASSIUM CHLORIDE 10 MEQ TABLET.ER PO ONE (09:00)
[2020-07-02] MEDS: CETIRIZINE 10 MG TABLET PO SCH (09:12)
[2020-07-02] MEDS: DULOXETINE HCL 30 MG CAPSULE.DR PO SCH (09:13)
[2020-07-02] MEDS: LEVETIRACETAM 500 MG TABLET PO SCH ×2 (09:13→21:49)
[2020-07-02] MEDS: BUSPIRONE HCL 10 MG TABLET PO SCH (09:13)
[2020-07-02] MEDS: FAMOTIDINE 20 MG TABLET PO SCH ×2 (09:14→21:50)
[2020-07-02] MEDS ORDERED: [UNRECOGNIZED DRUG - REMARK] NS SCH (10:00)
[2020-07-02] MEDS: OXYCODONE HCL IR 5 MG TABLET PO PRN ×2 (12:16→19:00)
--- NOTE | 2020-07-02 16:50 | PDOC PROGRESS REPORT ---
Subjective Date:: 07/02/20 Subjective:: MYLENE ANGLIN is a 55 year old female with a history of bipolar disorder, seizure disorder, hypertension, hypothyroidism, COPD, and GERD who was admitted 06/30/2020 with Sepsis secondary to UTI. Patient was seen on morning rounds. She is found resting in bed, comfortably, on room air. She is A&Ox4, however, throughout our conversation it becomes readily apparent that she is quite confused and confabulates much of the conversation. She initially though I was a friend, talked about mutual friends, then seamlessly transitioned to talking about being her provider visiting on a lunch break and compliments me on a recent office remodel. She is pleasant and socially appropriate. She reports dysuria, increased urinary frequency, fatigue and general sense of being unwell. She denies chest pain, palpitations, dyspnea, cough, abdominal pain, nausea vomiting and diarrhea. T-max 99.8/24 hrs, 101.8/48 hours. She has no questions or concerns at this time. No concerns per nursing. Reason For Visit: SEPSIS,ACUTE METABOLIC ENCEPHALOPATHY,UTI,ACUTE Physical Exam Vital Signs: Temp Pulse Resp BP Pulse Ox 98.4 F 82 18 102/55 L 97 07/02/20 12:14 07/02/20 12:14 07/02/20 12:14 07/02/20 12:14 07/02/20 12:14 Intake & Output 07/01/20 07/02/20 07/03/20 06:59 06:59 06:59 Intake Total 4100 2717 1765 Output Total 1100 1450 Balance 3000 1267 1765 Weight 85.5 kg 91.1 kg General appearance: PRESENT: no acute distress, cooperative, well-developed, well-nourished - overweight Head exam: PRESENT: atraumatic, normocephalic Eye exam: PRESENT: conjunctiva pink, EOMI, PERRLA. ABSENT: scleral icterus Mouth exam: PRESENT: dry mucosa, tongue midline Teeth exam: PRESENT: poor dentation Respiratory exam: PRESENT: clear to auscultation dre, symmetrical, unlabored, other - room air. ABSENT: rales, rhonchi, wheezes Cardiovascular exam: PRESENT: RRR. ABSENT: diastolic murmur, rubs, systolic murmur Pulses: PRESENT: normal dorsalis pedis pul Vascular exam: PRESENT: normal capillary refill GI/Abdominal exam: PRESENT: normal bowel sounds, soft, other - no CVA tenderness on percussion. ABSENT: distended, guarding, mass, organolmegaly, rebound, tenderness Rectal exam: PRESENT: deferred Extremities exam: PRESENT: full ROM. ABSENT: calf tenderness, clubbing, pedal edema Musculoskeletal exam: PRESENT: ambulatory Neurological exam: PRESENT: alert, awake, oriented to person, oriented to place, oriented to time, oriented to situation, CN II-XII grossly intact, other - technically orientated but confused/confabulates. ABSENT: motor sensory deficit Psychiatric exam: PRESENT: appropriate affect, normal mood. ABSENT: homicidal ideation, suicidal ideation Skin exam: PRESENT: dry, intact, warm. ABSENT: cyanosis, rash Results Laboratory Results: 07/02/20 04:15 07/02/20 04:15 07/02/20 07/02/20 04:15 04:15 WBC 9.8 RBC 3.47 L Hgb 9.7 L Hct 28.6 L MCV 83 MCH 28.0 MCHC 33.9 RDW 14.0 Plt Count 165 Sodium 135.9 L Potassium 3.3 L Chloride 108 H Carbon Dioxide 20 L Anion Gap 8 BUN 22 H Creatinine 1.35 H Est GFR ( Amer) 49 L Glucose 84 Calcium 8.7 06/30/20 17:35 Blood Blood Culture (PCR) - Final Escherichia Coli 06/30/20 16:16 Catheterized Urine Urine Culture - Final Escherichia Coli 06/30/20 16:16 Troponin I < 0.012 Impressions: Chest X-Ray 06/30/20 15:27 IMPRESSION: Limited atelectasis. Head CT 06/30/20 15:28 IMPRESSION: 1. No acute intracranial abnormality. 2. Mucoperiosteal thickening involving the left maxillary and sphenoid sinuses. Correlation with patient's symptomatology is recommended to exclude an acute sinusitis. EVIDENCE OF ACUTE STROKE: NO. Assessment and Plan - Diagnosis (1) Sepsis Qualifiers: Sepsis type: sepsis due to unspecified organism Sepsis acute organ dysfunction status: without acute organ dysfunction Qualified Code(s): A41.9 - Sepsis, unspecified organism Is this a current diagnosis for this admission?: Yes Plan: Improved; now A&Ox4, renal function improved, leukocytosis resolved. Fever trending down Patient presents with change in her mental status, hypotension and urinary symptoms UA was positive for leukocyte esterase and multiple WBCs per high-power field Meets sepsis criteria with a qSOFA score of 2/3 likely focus being urosepsis Patient showed significant improvement after a bolus of IV fluid and AMS resolved Blood cultures (both sets) E coli Urine culture show E coli Patient is admitted to the medical floor. Continue on ceftriaxone Continue IV hydration (2) Bacteremia Is this a current diagnosis for this admission?: Yes Plan: Blood cultures (both sets) showed E. coli Repeat cultures pending Urine culture with ampicillin resistant E coli. Continues on ceftriaxone. (3) Urinary tract infection Qualifiers: Urinary tract infection type: site unspecified Hematuria presence: without hematuria Qualified Code(s): N39.0 - Urinary tract infection, site not specified Is this a current diagnosis for this admission?: Yes Plan: Presentation concerning for urosepsis UA was positive for leukocyte esterase and > 182 WBC per high-power field Urine culture shows gram-negative rods. Currently on ceftriaxone 1 g IV daily Crooks removed. (4) Acute kidney injury Is this a current diagnosis for this admission?: Yes Plan: Improved; Cr 2.09->1.61-> 1.35 Baseline Cr 0.95 Prerenal secondary to sepsis, hypotension, and urinary tract infection. We will continue IV hydration Renally dose medications and avoid nephrotoxic medications. Continue monitoring BMP (5) GERD (gastroesophageal reflux disease) Is this a current diagnosis for this admission?: Yes Plan: Symptoms well controlled, continue pantoprazole (6) Bipolar disorder Is this a current diagnosis for this admission?: Yes Plan: Continue home medications (7) Hyponatremia Is this a current diagnosis for this admission?: Yes Plan: Mild; trending up. Na 131-> 132.1-> 135.9 Likely due to volume depletion Continue IVF Liberalize dietary sodium Continue monitoring BMP (8) Seizure disorder Is this a current diagnosis for this admission?: Yes Plan: Stable and has not had seizure in the past few years Continue Keppra (9) Hypotension Qualifiers: Hypotension type: unspecified hypotension type Qualified Code(s): I95.9 - Hypotension, unspecified Is this a current diagnosis for this admission?: Yes Plan: Resolved. Patient was hypotensive on presentation at the ED Resolved after administration of bolus of IV fluid (10) Acute metabolic encephalopathy Is this a current diagnosis for this admission?: Yes Plan: Alert and oriented x4. Though confused/confabulates Presents with altered mental status Multifactorial likely due to sepsis, acute kidney injury and volume depletion Has no neurologic deficit and denies any seizure-like activity Meningeal signs were negative CT head showed no acute intracranial abnormality Continue monitoring Supportive care (11) Hypokalemia Is this a current diagnosis for this admission?: Yes Plan: Oral replacement. Follow up chemistry. - Time Time Spent with patient: 25-34 minutes Medications reviewed and adjusted accordingly: Yes Anticipated Discharge Disposition: Home, Self Care Anticipated Discharge Timeframe: within 48 hours
[2020-07-02] MEDS: CEFTRIAXONE 1 GM/D5W RTU 1 GM/50 ML RTUPB IV SCH (17:03)
[2020-07-02] MEDS: AMITRIPTYLINE HCL 50 MG TABLET PO SCH (21:49)
[2020-07-02] MEDS: ARIPIPRAZOLE 5 MG TABLET PO SCH (21:49)
[2020-07-03] MEDS: RINGERS SOLUTION,LACTATED 1,000 ML IV PRN (01:37)
[2020-07-03] MEDS: HEPARIN SOD (PORCINE) 5,000 UNIT/ML 1 ML VIAL SUBCUT SCH ×3 (05:58→21:34)
[2020-07-03] MEDS: LEVOTHYROXINE SODIUM 0.112 MG TABLET PO SCH (05:59)
[2020-07-03 06:53] LABS: ANION GAP 8 (5-19); BLOOD UREA NITROGEN 17 mg/dL (7-20); CALCIUM 8.6 mg/dL (8.4-10.2); CARBON DIOXIDE 21 mmol/L (22-30); CHLORIDE 110 mmol/L (98-107); GLUCOSE 92 mg/dL (75-110); POTASSIUM 3.1 mmol/L (3.6-5.0)
[2020-07-03 07:38] LABS: HEMATOCRIT 27.5 % (36.0-47.0); HEMOGLOBIN 9.5 g/dL (12.0-15.5); MEAN CORPUSCULAR HEMOGLOBIN 28.8 pg (27.0-33.4); MEAN CORPUSCULAR HGB CONC 34.7 g/dL (32.0-36.0); MEAN CORPUSCULAR VOLUME 83 fl (80-97); PLATELET COUNT 175 10^3/uL (150-450); RED BLOOD COUNT 3.31 10^6/uL (3.72-5.28); RED CELL DISTRIBUTION WIDTH 14.1 % (11.5-14.0); WHITE BLOOD COUNT 9.2 10^3/uL (4.0-10.5)
[2020-07-03] MEDS: LEVETIRACETAM 500 MG TABLET PO SCH ×2 (09:18→21:34)
[2020-07-03] MEDS: BUSPIRONE HCL 10 MG TABLET PO SCH (09:18)
[2020-07-03] MEDS: FAMOTIDINE 20 MG TABLET PO SCH ×2 (09:18→21:34)
[2020-07-03] MEDS: DULOXETINE HCL 30 MG CAPSULE.DR PO SCH (09:18)
[2020-07-03] MEDS: CETIRIZINE 10 MG TABLET PO SCH (09:18)
[2020-07-03] MEDS ORDERED: POTASSIUM CHLORIDE 10 MEQ TABLET.ER PO ONE (10:05)
--- NOTE | 2020-07-03 16:41 | PDOC PROGRESS REPORT ---
Subjective Date:: 07/03/20 Subjective:: No adverse events overnight. No new complaints. Vital signs been stable. She has been afebrile. Eating and drinking without difficulty. Good urine output. Potassium was little bit low today. Creatinine continues to trend down. She seems to be aware that she was "talking out of her mind" a little bit yesterday, but says she feels a lot better today. Reason For Visit: SEPSIS,ACUTE METABOLIC ENCEPHALOPATHY,UTI,ACUTE Physical Exam Vital Signs: Temp Pulse Resp BP Pulse Ox 98.6 F 81 20 101/88 H 100 07/03/20 16:00 07/03/20 16:00 07/03/20 16:00 07/03/20 16:00 07/03/20 16:00 Intake & Output 07/02/20 07/03/20 07/04/20 06:59 06:59 06:59 Intake Total 2717 2715 360 Output Total 1450 100 Balance 1267 2615 360 Weight 91.1 kg 91.1 kg 91.1 kg General appearance: PRESENT: no acute distress, cooperative, well-developed, well-nourished - overweight Respiratory exam: PRESENT: clear to auscultation dre, symmetrical, unlabored, other - room air. ABSENT: rales, rhonchi, wheezes Cardiovascular exam: PRESENT: RRR. ABSENT: diastolic murmur, rubs, systolic murmur Pulses: PRESENT: normal dorsalis pedis pul Vascular exam: PRESENT: normal capillary refill GI/Abdominal exam: PRESENT: normal bowel sounds, soft. ABSENT: distended, guarding, mass, organolmegaly, rebound, tenderness Rectal exam: PRESENT: deferred Extremities exam: PRESENT: full ROM. ABSENT: calf tenderness, clubbing, pedal edema Musculoskeletal exam: PRESENT: ambulatory Neurological exam: PRESENT: alert, awake, oriented to person, oriented to place, oriented to time, oriented to situation Psychiatric exam: PRESENT: appropriate affect, normal mood Skin exam: PRESENT: dry, intact, warm. Results Laboratory Results: 07/03/20 07:20 07/03/20 06:08 07/03/20 07/03/20 07/03/20 06:08 06:08 07:20 WBC Cancelled 9.2 RBC Cancelled 3.31 L Hgb Cancelled 9.5 L Hct Cancelled 27.5 L MCV Cancelled 83 MCH Cancelled 28.8 MCHC Cancelled 34.7 RDW Cancelled 14.1 H Plt Count Cancelled 175 Sodium 139.3 Potassium 3.1 L Chloride 110 H Carbon Dioxide 21 L Anion Gap 8 BUN 17 Creatinine 1.15 Est GFR ( Amer) 59 L Glucose 92 Calcium 8.6 06/30/20 17:35 Blood Blood Culture (PCR) - Final Escherichia Coli 06/30/20 17:35 Blood Blood Culture - Final Escherichia Coli 06/30/20 16:16 Blood Blood Culture - Final Escherichia Coli 06/30/20 16:16 Troponin I < 0.012 Impressions: Chest X-Ray 06/30/20 15:27 IMPRESSION: Limited atelectasis. Head CT 06/30/20 15:28 IMPRESSION: 1. No acute intracranial abnormality. 2. Mucoperiosteal thickening involving the left maxillary and sphenoid sinuses. Correlation with patient's symptomatology is recommended to exclude an acute sinusitis. EVIDENCE OF ACUTE STROKE: NO. Assessment and Plan - Diagnosis (1) Acute kidney injury Is this a current diagnosis for this admission?: Yes (2) Acute metabolic encephalopathy Is this a current diagnosis for this admission?: Yes (3) Bacteremia Is this a current diagnosis for this admission?: Yes (4) Bipolar disorder Is this a current diagnosis for this admission?: Yes (5) GERD (gastroesophageal reflux disease) Qualifiers: Esophagitis presence: esophagitis presence not specified Qualified Code(s): K21.9 - Gastro-esophageal reflux disease without esophagitis Is this a current diagnosis for this admission?: Yes (6) Hypokalemia Is this a current diagnosis for this admission?: Yes (7) Seizure disorder Is this a current diagnosis for this admission?: Yes (8) Sepsis Qualifiers: Sepsis type: Escherichia coli Sepsis acute organ dysfunction status: with acute organ dysfunction Severe sepsis acute organ dysfunction type: acute renal failure Is this a current diagnosis for this admission?: Yes (9) Urinary tract infection Qualifiers: Urinary tract infection type: acute cystitis Hematuria presence: without hematuria Qualified Code(s): N30.00 - Acute cystitis without hematuria Is this a current diagnosis for this admission?: Yes - Plan Summary Summary: She seems to have improved substantially. Her mental status is back to normal. Her creatinine is trending back towards normal. White blood cell count is coming down. Vital signs are stable. Urine output is good. She will probably need another day of IV fluids. We are replacing her potassium today. She should be able to complete a course of oral antibiotics at discharge, which could occur as quickly as tomorrow. - Time Time Spent with patient: 15-24 minutes Anticipated Discharge Disposition: Home, Self Care Anticipated Discharge Timeframe: within 24 hours
[2020-07-03] MEDS: CEFTRIAXONE 1 GM/D5W RTU 1 GM/50 ML RTUPB IV SCH (17:14)
[2020-07-03] MEDS: ARIPIPRAZOLE 5 MG TABLET PO SCH (21:34)
[2020-07-03] MEDS: AMITRIPTYLINE HCL 50 MG TABLET PO SCH (21:34)
[2020-07-03] MEDS ORDERED: ATORVASTATIN CALCIUM 20 MG TABLET PO SCH (22:00)
[2020-07-04] MEDS: HEPARIN SOD (PORCINE) 5,000 UNIT/ML 1 ML VIAL SUBCUT SCH ×2 (06:15→13:33)
[2020-07-04] MEDS: RINGERS SOLUTION,LACTATED 1,000 ML IV PRN (06:15)
[2020-07-04] MEDS: LEVOTHYROXINE SODIUM 0.112 MG TABLET PO SCH (06:15)
[2020-07-04] MEDS ORDERED: INFLUENZA QUAD (6MOS+) 2020-21 VAC 0.5 ML SYR IM ONE (08:00)
[2020-07-04] MEDS: BUSPIRONE HCL 10 MG TABLET PO SCH (09:29)
[2020-07-04] MEDS: FAMOTIDINE 20 MG TABLET PO SCH (09:29)
[2020-07-04] MEDS: LEVETIRACETAM 500 MG TABLET PO SCH (09:30)
[2020-07-04] MEDS: CETIRIZINE 10 MG TABLET PO SCH (09:30)
[2020-07-04] MEDS: DULOXETINE HCL 30 MG CAPSULE.DR PO SCH (09:30)
[2020-07-04] MEDS ORDERED: FLUTICASONE NASAL SPRAY 50 MCG/SPRY 120 SPRAY/16 GM NASL SCH (10:00)
[2020-07-04] MEDS: OXYCODONE HCL IR 5 MG TABLET PO PRN (15:42)
[2020-07-04 17:21] VITALS: BP 124/64
--- NOTE | 2020-07-04 17:34 | PDOC DISCHARGE SUMMARY ---
Impression - Admit/DC Date/PCP Admission Date/Primary Care Provider: 06/30/20 21:26 SONYA PANTOJA MD Discharge Date: 07/04/20 - Discharge Diagnosis (1) Acute kidney injury Is this a current diagnosis for this admission?: Yes (2) Acute metabolic encephalopathy Is this a current diagnosis for this admission?: Yes (3) Bacteremia Is this a current diagnosis for this admission?: Yes (4) Bipolar disorder Is this a current diagnosis for this admission?: Yes (5) GERD (gastroesophageal reflux disease) Is this a current diagnosis for this admission?: Yes (6) Hypokalemia Is this a current diagnosis for this admission?: Yes (7) Seizure disorder Is this a current diagnosis for this admission?: Yes (8) Sepsis Is this a current diagnosis for this admission?: Yes (9) Urinary tract infection Is this a current diagnosis for this admission?: Yes - Assessment Summary: She seems to have improved substantially. Her mental status is back to normal. Her creatinine is trending back towards normal. White blood cell count is coming down. Vital signs are stable. Urine output is good. She will probably need another day of IV fluids. We are replacing her potassium today. She should be able to complete a course of oral antibiotics at discharge, which could occur as quickly as tomorrow. - Additional Information Resuscitation Status: Full Code Discharge Diet: Cardiac Discharge Activity: Activity As Tolerated Referrals: [facility] [Provider Group] - 07/14/20 1:00 pm Prescriptions: Cefpodoxime Proxetil [Vantin 200 mg Tablet] 200 mg PO BID #20 tablet Home Medications: Aripiprazole [Abilify 5 mg Tablet] 10 mg PO QHS 14 Days #14 tablet 08/31/17 Buspirone HCl [Buspar 15 mg Tablet] 15 mg PO DAILY 14 Days #14 tablet 08/31/17 Duloxetine HCl [Cymbalta] 60 mg PO DAILY 14 Days #14 capsule. 08/31/17 Levetiracetam [Keppra 500 mg Tablet] 500 mg PO Q12 14 Days #14 tablet 08/31/17 Amitriptyline HCl [Elavil 50 mg Tablet] 150 mg PO QHS 07/01/20 Cetirizine HCl [Zyrtec 10 mg Tablet] 10 mg PO DAILY 07/01/20 Fluticasone Propionate [Flonase Allergy Relief] 9.9 ml NS DAILY 07/01/20 Furosemide [Lasix 20 mg Tablet] 20 mg PO QAMP PRN 07/01/20 Gabapentin [Neurontin] 400 mg PO TID 07/01/20 Ibuprofen [Ibu] 800 mg PO TIDP PRN 07/01/20 Levothyroxine Sodium [Synthroid 0.112 mg Tablet] 112 mcg PO DAILY 07/01/20 Oxycodone HCl [Oxy-Ir 5 mg Tablet] 5 mg PO Q6HP PRN 07/01/20 Rosuvastatin Calcium [Crestor] 10 mg PO QHS 07/01/20 Tizanidine HCl [Zanaflex 4 mg Tablet] 4 mg PO BID 07/01/20 Cefpodoxime Proxetil [Vantin 200 mg Tablet] 200 mg PO BID #20 tablet 07/04/20 History of Present Illiness History of Present Illness: MYLENE ANGLIN is a 55 year old female with a history of bipolar disorder, seizure disorder, GERD and hypothyroidism who presents with 1 week duration of fatigue, fever, chills, dysuria, increased frequency of urination. And her daughter reports that since yesterday she has not been herself and was altered from her baseline. On arrival patient was hypotensive and altered, she was give n IV fluid per sepsis protocol at the ED and was started on antibiotic after which she improved and became alert and oriented. She denies any nausea, vomiting, cough, shortness of breath, chest pain, palpitation, dizziness. She states that she has not started any new medication or does not take any [id number] or herbal medicines. She denies any abnormal body movements and she states that he has been many years since she had seizure-like activity. Hospital Course Hospital Course: She made progressive gradual improvements with IV fluids antibiotics. She wound up growing E. coli in the blood which was fortunately sensitive to several oral antibiotics. We have decided to treat her with 10 more days as an outpatient of [facility]. She was instructed to take this until it was gone. She had some minor electrolyte disturbances that were easily corrected. She will resume her typical home medications. She will follow-up with her primary care provider in approximately 1 week. Labs and examination were reassuring and she was discharged in stable condition. Physical Exam Vital Signs: Temp Pulse Resp BP Pulse Ox 98.1 F 89 12 124/64 100 07/04/20 17:19 07/04/20 17:19 07/04/20 17:19 07/04/20 17:19 07/04/20 17:19 Intake & Output 07/03/20 07/04/20 07/05/20 06:59 06:59 06:59 Intake Total 2715 2090 1240 Output Total 100 Balance 2615 2090 1240 Weight 91.1 kg 90.3 kg General appearance: PRESENT: no acute distress, cooperative, well-developed, well-nourished - overweight Respiratory exam: PRESENT: clear to auscultation dre, symmetrical, unlabored, other - room air. ABSENT: rales, rhonchi, wheezes Cardiovascular exam: PRESENT: RRR. ABSENT: diastolic murmur, rubs, systolic murmur Pulses: PRESENT: normal dorsalis pedis pul Vascular exam: PRESENT: normal capillary refill GI/Abdominal exam: PRESENT: normal bowel sounds, soft. ABSENT: distended, guarding, mass, organolmegaly, rebound, tenderness Rectal exam: PRESENT: deferred Extremities exam: PRESENT: full ROM. ABSENT: calf tenderness, clubbing, pedal edema Musculoskeletal exam: PRESENT: ambulatory Neurological exam: PRESENT: alert, awake, oriented to person, oriented to place, oriented to time, oriented to situation Psychiatric exam: PRESENT: appropriate affect, normal mood Skin exam: PRESENT: dry, intact, warm. Results Laboratory Results: WBC 9.2 10^3/uL (4.0-10.5) 07/03/20 07:20 RBC 3.31 10^6/uL (3.72-5.28) L 07/03/20 07:20 Hgb 9.5 g/dL (12.0-15.5) L 07/03/20 07:20 Hct 27.5 % (36.0-47.0) L 07/03/20 07:20 MCV 83 fl (80-97) 07/03/20 07:20 MCH 28.8 pg (27.0-33.4) 07/03/20 07:20 MCHC 34.7 g/dL (32.0-36.0) 07/03/20 07:20 RDW 14.1 % (11.5-14.0) H 07/03/20 07:20 Plt Count 175 10^3/uL (150-450) 07/03/20 07:20 Lymph % (Auto) 6.2 % (13-45) L 07/01/20 05:23 Cherry % (Auto) 9.1 % (3-13) 07/01/20 05:23 Eos % (Auto) 0.2 % (0-6) 07/01/20 05:23 Baso % (Auto) 0.3 % (0-2) 07/01/20 05:23 Absolute Neuts (auto) 7.6 10^3/uL (1.7-8.2) 07/01/20 05:23 Absolute Lymphs (auto) 0.6 10^3/uL (0.5-4.7) 07/01/20 05:23 Absolute Monos (auto) 0.8 10^3/uL (0.1-1.4) 07/01/20 05:23 Absolute Eos (auto) 0.0 10^3/uL (0.0-0.6) 07/01/20 05:23 Absolute Basos (auto) 0.0 10^3/uL (0.0-0.2) 07/01/20 05:23 Seg Neutrophils % 84.2 % (42-78) H 07/01/20 05:23 Platelet Estimate Cancelled 07/03/20 06:08 PT 15.4 SEC (11.4-15.4) 06/30/20 16:16 INR 1.20 06/30/20 16:16 VBG pH 7.30 (7.30-7.42) 06/30/20 16:45 VBG pCO2 42.3 mmHg (35-63) 06/30/20 16:45 VBG HCO3 20.1 mmol/L (20-32) 06/30/20 16:45 VBG Base Excess -6.1 mmol/L 06/30/20 16:45 Sodium 139.3 mmol/L (137-145) 07/03/20 06:08 Potassium 3.1 mmol/L (3.6-5.0) L 07/03/20 06:08 Chloride 110 mmol/L (98-107) H 07/03/20 06:08 Carbon Dioxide 21 mmol/L (22-30) L 07/03/20 06:08 Anion Gap 8 (5-19) 07/03/20 06:08 BUN 17 mg/dL (7-20) 07/03/20 06:08 Creatinine 1.15 mg/dL (0.52-1.25) 07/03/20 06:08 Est GFR ( Amer) 59 (>60) L 07/03/20 06:08 Est GFR (MDRD) Non-Af 49 (>60) L 07/03/20 06:08 Glucose 92 mg/dL (75-110) 07/03/20 06:08 POC Glucose 131 mg/dL (70-110) H 06/30/20 15:29 Lactic Acid Cancelled 06/30/20 17:35 Calcium 8.6 mg/dL (8.4-10.2) 07/03/20 06:08 Total Bilirubin 0.8 mg/dL (0.2-1.3) 06/30/20 16:16 Direct Bilirubin 0.6 mg/dL (0.0-0.4) H 06/30/20 16:16 Neonat Total Bilirubin Not Reportable 06/30/20 16:16 Neonat Direct Bilirubin Not Reportable 06/30/20 16:16 Neonat Indirect Bili Not Reportable 06/30/20 16:16 AST 101 U/L (14-36) H 06/30/20 16:16 ALT 39 U/L (<35) H 06/30/20 16:16 Alkaline Phosphatase 157 U/L (38-126) H 06/30/20 16:16 Troponin I < 0.012 ng/mL 06/30/20 16:16 Total Protein 6.6 g/dL (6.3-8.2) 06/30/20 16:16 Albumin 3.4 g/dL (3.5-5.0) L 06/30/20 16:16 TSH 0.33 uIU/mL (0.47-4.68) L 06/30/20 16:16 Free T4 1.89 ng/dL (0.78-2.19) 06/30/20 16:16 Urine Color YELLOW 06/30/20 16:16 Urine Appearance CLOUDY 06/30/20 16:16 Urine pH 5.0 (5.0-9.0) 06/30/20 16:16 Ur Specific Juda 1.014 06/30/20 16:16 Urine Protein 100 mg/dL (NEGATIVE) H 06/30/20 16:16 Urine Glucose (UA) NEGATIVE mg/dL (NEGATIVE) 06/30/20 16:16 Urine Ketones NEGATIVE mg/dL (NEGATIVE) 06/30/20 16:16 Urine Blood SMALL (NEGATIVE) H 06/30/20 16:16 Urine Nitrite NEGATIVE (NEGATIVE) 06/30/20 16:16 Urine Bilirubin NEGATIVE (NEGATIVE) 06/30/20 16:16 Urine Urobilinogen 4.0 mg/dL (<2.0) H 06/30/20 16:16 Ur Leukocyte Esterase LARGE (NEGATIVE) H 06/30/20 16:16 Urine WBC (Auto) >182 /HPF 06/30/20 16:16 Urine RBC (Auto) 5 /HPF 06/30/20 16:16 Urine Bacteria (Auto) 2+ /HPF 06/30/20 16:16 Urine WBC Clumps MOD /HPF 06/30/20 16:16 Squamous Epi Cells Auto <1 /HPF 06/30/20 16:16 Urine Mucus (Auto) RARE /LPF 06/30/20 16:16 Urine Ascorbic Acid NEGATIVE (NEGATIVE) 06/30/20 16:16 Slides for Path Review Cancelled 07/03/20 06:08 06/30/20 16:16 Troponin I < 0.012 Impressions: Chest X-Ray 06/30/20 15:27 IMPRESSION: Limited atelectasis. Head CT 06/30/20 15:28 IMPRESSION: 1. No acute intracranial abnormality. 2. Mucoperiosteal thickening involving the left maxillary and sphenoid sinuses. Correlation with patient's symptomatology is recommended to exclude an acute sinusitis. EVIDENCE OF ACUTE STROKE: NO. Plan Time Spent: Greater than 30 Minutes Stroke Is this a Stroke Patient?: No Acute Heart Failure Is this a Heart Failure Patient?: No
== END 2020-07-04 17:35 | disposition home or self-care (01) | DRG 871 ==
LOC: ER 14:51 → EH 21:26 → 5 22:37
PROVIDERS: ADMIT Student in an Organized Health Care Education/Training Program; ATTEND Family Medicine
DX: A41.51 Sepsis due to Escherichia coli [E. coli] (principal); G93.41 Metabolic encephalopathy; N17.9 Acute kidney failure, unspecified; N39.0 Urinary tract infection, site not specified; E87.1 Hypo-osmolality and hyponatremia; R65.20 Severe sepsis without septic shock; B96.20 Unspecified Escherichia coli [E. coli] as the cause of diseases classified elsewhere; E03.9 Hypothyroidism, unspecified; M06.9 Rheumatoid arthritis, unspecified; M79.7 Fibromyalgia; F41.9 Anxiety disorder, unspecified; F31.9 Bipolar disorder, unspecified; F43.10 Post-traumatic stress disorder, unspecified; K21.9 Gastro-esophageal reflux disease without esophagitis; E87.6 Hypokalemia; J44.9 Chronic obstructive pulmonary disease, unspecified; I95.9 Hypotension, unspecified; G40.909 Epilepsy, unspecified, not intractable, without status epilepticus; Z87.891 Personal history of nicotine dependence
CPT/HCPCS: 36415; 70450; 71046; 80048; 80053; 81001; 82803; 82962; 83605; 84439; 84443; 84484; 85025; 85027; 85610; 87040; 87077; 87086; 87088; 87150; 87186; 90471; 90686; 93005; 93010; 96361; 96365; 99285; G0008; J0696; J1644; J3490; J7030; J7040; J7120